=== PATIENT | male | born 1980 | race Caucasian/White ===

== ENCOUNTER 2019-01-25 09:30 | Outpatient (CLI) | payer BC ==
[~2019-01-25] VITALS: Ht 78 cm; Wt 227.0 kg
[~2019-01-25 09:30] MED LIST: ALLO300T2 PO; ATOR40TA70 PO; BUPR300T43 PO; DULO30CA3 PO; HYDR12.5 PO; LISI-552 PO
== END 2019-01-25 10:28 | disposition home or self-care (01) ==
LOC: PREOP 09:30
PROVIDERS: ATTEND Surgery
DX: Z01.818 Encounter for other preprocedural examination (principal)

== ENCOUNTER 2019-02-03 06:07 | Day surgery (SDC) | payer BC ==
[2019-02-03] VITALS (7 sets, daily range): BP systolic 122–160; BP diastolic 78–97
[~2019-02-03] VITALS: Ht 177.8 cm; Wt 225.1 kg
[2019-02-03] MEDS ORDERED: LACTATED RINGERS 1,000 ML IV PRN (06:46)
[2019-02-03] MEDS ORDERED: ceFAZolin 2 GM IV Premixed 50 ML IV ONE (07:00)
[2019-02-03] MEDS ORDERED: BUP/EPI 0.5% 1:200,000 (MARCAINE) 10ML VIAL IJ ONE (07:05)
[2019-02-03] MEDS ORDERED: ceFAZolin 2 GM/NS 50 ML (COMPOUNDED) IV ONE (07:30)
[2019-02-03] MEDS ORDERED: KETAMINE/NaCl 50 MG/5 ML SYRINGE (ED ONLY) ONE (07:41)
[2019-02-03] MEDS ORDERED: MIDAZOLAM 2 MG/2 ML (VERSED) VIAL ONE ×2 (07:41→07:55)
--- NOTE | 2019-02-03 07:52 | Progress Note-Pre Operative ---
Pre-Operative Progress Note H&P Reviewed The H&P was reviewed, patient examined and no changes noted. Date Seen by Provider: Feb 03, 2019 Time Seen by Provider: 07:30 Date H&P Reviewed: Feb 03, 2019 Time H&P Reviewed: 07:30 Pre-Operative Diagnosis: left supraclavicular mass NU LOPEZ DO Feb 03, 2019 07:51 POS
--- NOTE | 2019-02-03 08:26 | Progress Note-Post Operative ---
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
--- NOTE | 2019-02-03 08:29 | Discharge Inst-Simple/Standard ---
Discharge Inst-Standard Patient Instructions/Follow Up Plan of Care/Instructions/FU: 2 weeks Clarisse (suture removal) Activity as Tolerated: No Discharge Diet: Regular Diet Other Inst to Patient Follow up Appt: Make appointment for 2 week. Instructions: No lifting greater than 10 pounds. No strenuous activity. May shower in 24 hours, no tub bath or soaking. Use incentive spirometer at home as directed. No Smoking Skin/Wound Care: May remove bandages. You need to leave the white strips over incision on they will fall off on their own. Symptoms to Report: Appetite Changes, Extremity Discoloration, Numbness/Tingling, Swelling Increased, Bleeding Excessive, Eyesight Changes, Pain Increased, Urine Color Change, Constipation(Persistent), Fever over 101 degree F, Pain/Pressure in chest, Urinating Difficulty, Cough Up/Vomit Blood, Heart Beat Irreg/Pounding, Pain/Pressure in jaw, Vaginal Bleeding Increase, Cramps in feet or legs, Lightheadedness, Pain/Pressure in shoulder, Diarrhea(Persistent), Memory Changes Suddenly, Questions/Concerns, Weight gain consecutive days, Dizziness/Fainting, Nausea/Vomiting, Shortness of Breath, Weight gain over 2 pounds If questions or concerns contact your physician Or seek help at emergency department. NU LOPEZ DO Feb 03, 2019 08:29 POS
[2019-02-03] MEDS ORDERED: proPOfol 200 MG/20 ML (DIPRIVAN) VIAL IV ONE (08:39)
--- NOTE | 2019-02-03 13:41 | Anesthesia-General Post-Op ---
MAC Patient Condition Mental Status/LOC: Same as Preop Cardiovascular: Satisfactory Nausea/Vomiting: Absent Respiratory: Satisfactory Pain: Controlled Complications: Absent Post Op Complications Complications None Follow Up Care/Instructions Patient Instructions None needed. Anesthesiology Discharge Order Discharge Order Patient is doing well, no complaints, stable vital signs, no apparent adverse anesthesia problems. No complications reported per nursing. KIKO PHAN CRNA Feb 03, 2019 13:41 POS
--- NOTE | 2019-02-04 03:23 | OPERATIVE REPORT ---
DATE OF SERVICE: 02/03/2019 PREOPERATIVE DIAGNOSIS: Left supraclavicular mass. POSTOPERATIVE DIAGNOSIS: Left supraclavicular mass. PROCEDURE: Excision of left supraclavicular mass, 7.3 x 3 cm. SURGEON: Nu Robb DO. ANESTHESIA: MAC with local. ESTIMATED BLOOD LOSS: Minimal. COMPLICATIONS: None. INDICATIONS: The patient is a 38-year-old male with a mass on the left clavicular area. He understands risks and benefits of procedure and wished to proceed with procedure. He agrees to have this removed. Consent was signed in the chart. DESCRIPTION OF PROCEDURE: The patient was taken to the operating suite, was prepped and draped in sterile fashion. Surgical pause was performed. Local anesthetic was infiltrated around the mass. An elliptical incision measuring 7.3 x 3 cm was made around the mass and cautery used to dissect around through the skin and subcutaneous tissue. Once removed, the specimen was labeled and the skin was undermined slightly with cautery. The skin was then closed using 2-0 Prolene in vertical mattress in simple interrupted fashion. The area was then washed and dried and sterile bandage was applied. The patient tolerated procedure well without any complications. He was taken to recovery room in stable condition. Job ID: [id number] DocumentID: [id number] Dictated Date: 02/03/2019 19:46:57 Counter Maker Date: 02/04/2019 03:22:23 Dictated By: NU ROBB DO
--- OUTSIDE RECORDS SUMMARY | 2019-03-01 00:24 | XMS REPORT ---
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 Active 45176186 Problem Abnormal results of thyroid function studies R94.6 Active 299702809 Problem Mixed hyperlipidemia E78.2 Active 395634799 Problem Acute midline low back pain with left-sided sciatica M54.42 Active 076029439 Problem Lumbago with sciatica, right side M54.41 Active 473999391 Problem Gout M10.9 Active 18681106 Problem Other chronic pain G89.29 Active 8 0854215 Problem Benign hypertension I10 Active 46840332 Problem Acute left-sided low back pain with left-sided sciatica M54.42 Active 418017375 Problem Severe episode of recurrent major depressive disorder, without psychotic features F33.2 Active 72235651 Problem BELLA (generalized anxiety disorder) F41.1 Active 00248837 Problem Hypersomnolence G47.10 Active 7769 2006 ALLERGIES No Information ENCOUNTERS Encounter Location Date Diagnosis [facility] [address] [facility] [id number] [address] [place] [phone] Dec, [facility] [address] [facility] [id number] [address] [place] [phone] Dec, [facility] [address] [facility] [id number] [address] [place] [id number] Nov, [facility] [address] [facility] [id number] [address] [place] [phone] Oct, Severe episode of recurrent major depressive disorder, without psychotic features F33.2 and BELLA (generalized anxiety disorder) F41.1 [place] [address] [place] [id number] [address] [place] [id number] Oct, BELLA (generalized anxiety dis order) F41.1 ; Severe episode of recurrent major depressive disorder, without psychotic features F33.2 and Morbid obesity E66.01 [place] [address] [place] [id number] [address] [place] [phone] Sep, BELLA (generalized anxiety dis order) F41.1 and Severe episode of recurrent major depressive disorder, without psychotic features F33.2 [place] [address] [place] [id number] [address] [place] [phone] Jul, BELLA (generalized anxiety dis order) F41.1 ; Severe episode of recurrent major depressive disorder, without psychotic features F33.2 and Morbid obesity E66.01 [place] [address] [place] [id number] [address] [place] [phone] Jul, BELLA (generalized anxiety dis order) F41.1 and Severe episode of recurrent major depressive disorder, without psychotic features F33.2 [place] [address] [place] [id number] [address] [place] [phone] June, BELLA (generalized anxiety dis order) F41.1 ; Severe episode of recurrent major depressive disorder, without psychotic features F33.2 and Morbid obesity E66.01 [place] [address] [place] [id number] [address] [place] [phone] June, Benign hypertension I10 [place] [address] [facility] [id number] [address] [place] [phone] May, [place] [address] [place] [id number] [address] [place] [phone] May, BELLA (generalized anxiety dis order) F41.1 ; Severe episode of recurrent major depressive disorder, without psychotic features F33.2 and Morbid obesity E66.01 [place] [address] [place] [id number] [address] [place] [phone] Apr, [facility] [address] [facility] [id number] [address] [place] [phone] Mar, [facility] [address] [facility] [id number] [address] [place] [phone] Mar, Severe episode of recurrent major depressive disorder, without psychotic features F33.2 ; BELLA (generalized anxiety disorder) F41.1 and BMI 50.0-59.9, adult Z68.43 [facility] [address] [place] [id number] [address] [place] [phone] Mar, [facility] [address] [place] [id number] [place] [phone] Mar, Benign hypertension I10 [facility] [address] [place] [id number] [address] [place] [phone] Mar, [facility] [address] [place] [id number] [address] [place] [phone] Mar, [facility] [address] [place] [id number] [address] [place] [phone] Jan, [facility] [address] [place] [id number] [address] [place] [phone] Jan, [facility] [address] [place] [id number] [address] [place] [phone] Jan, Hypersomnolence G47.10 [facility] [address] [place] [id number] [address] [place] [phone] Jan, Lumbago with sciatica, right side M54.41 ; Other chronic pain G89.29 and BMI 50.0-59.9, adult Z68.43 [facility] [address] [place] [id number] [address] [place] [phone] Jan, [facility] [address] [place] [id number] [address] [place] [phone] Dec, Severe episode of recurrent major depressive disorder, without psychotic features F33.2 ; BELLA (generalized anxiety disorder) F41.1 ; Hypersomnolence G47.10 and BMI 50.0-59.9, adult Z68.43 [place] [address] [address] Oct, [place] [address] [address] Sep, Severe episode of recurrent major depressive disorder, without psychotic features F33.2 ; BELLA (generalized anxiety disorder) F41.1 and BMI 50.0-59.9, adult Z68.43 [place] [address] [address] Sep, [place] [address] [address] Sep, Severe episode of recurrent major depressive disorder, without psychotic features F33.2 [place] [address] [address] Sep, Skin disorder L98.9 and BMI 50.0-59.9, adult Z68.43 [place] [address] [address] Sep, Benign hypertension I10 ; Ab scess L02.91 ; Gout M10.9 ; Mixed hyperlipidemia E78.2 and BMI 50.0-59.9, adult Z68.43 [place] [address] [address] Aug, Severe episode of recurrent major depressive disorder, without psychotic features F33.2 ; BELLA (generalized anxiety disorder) F41.1 and BMI 50.0-59.9, adult Z68.43 [place] [address] [address] Jul, BMI 50.0-59.9, adult Z68.43 ; BELLA (generalized anxiety disorder) F41.1 and Severe episode of recurrent major depressive disorder, without psychotic features F33.2 [place] [address] [address] June, [place] [address] [address] June, Blood in the stool K92.1 and BMI 50.0-59.9, adult Z68.43 [place] [address] [address] May, [place] [address] [address] Apr, Chronic depression F32.9 ; B enign hypertension I10 ; Mixed hyperlipidemia E78.2 ; Gout M10.9 and BMI 50.0-59.9, adult Z68.43 [place] [address] [address] Mar, Mixed hyperlipidemia E78.2 ; Benign hypertension I10 and Gout M10.9 [place] [address] [address] Mar, Mixed hyperlipidemia E78.2 ; Gout M10.9 and Benign hypertension I10 [facility] [address] [address] Jan, Acute left-sided low back pa in with left-sided sciatica M54.42 and BMI 50.0-59.9, adult Z68.43 [facility] [address] [address] Oct, Acute midline low back pain with left-sided sciatica M54.42 [place] [address] [id number] 20 Oct, 2016 [place] [address] [phone] 13 Oct, 2016 Chronic depression F32.9 ; B enign hypertension I10 ; Mixed hyperlipidemia E78.2 and Gout M10.9 [place] [address] [place] [id number] [address] [place] [phone] Sep, Chronic depression F32.9 ; B enign hypertension I10 ; Mixed hyperlipidemia E78.2 and Gout M10.9 [facility] [address] [place] [id number] [place] [address] June, Chronic depression F32.9 ; G out M10.9 ; Benign hypertension I10 ; Obsessive-compulsive disorders F42.9 and Mixed hyperlipidemia E78.2 [place] [address] [address] May, Gout M10.9 ; Mixed hyperlipi demia E78.2 and Benign hypertension I10 [place] [address] [address] Apr, Chronic depression F32.9 ; G out M10.9 ; Benign hypertension I10 ; Obsessive-compulsive disorders F42.9 ; Abnormal results of thyroid function studies R94.6 and Mixed hyperlipidemia E78.2 [place] [address] [address] Apr, [place] [address] [address] Apr, [place] [address] [address] Jan, [place] [address] [address] Dec, [place] [address] [place] [id number] [place] [phone] Oct, [place] [address] [address] Sep, Anxiety state, unspecified 3 00.00 and Major depressive disorder, single episode, mild 296.21 [place] [address] [address] Sep, [facility] [address] [id number] [address] [place] [phone] Aug, [facility] [address] [id number] [address] [place] [phone] Jul, [facility] [address] [id number] [address] [place] [phone] June, Anxiety state, unspecified 3 00.00 and Depressive disorder, not elsewhere classified 311 [facility] [address] [id number] [address] [place] [phone] June, [facility] [address] [id number] [address] [place] [phone] June, Abnormal thyroid blood test 794.5 [facility] [address] [id number] [address] [place] [phone] May, [facility] [address] [id number] [address] [place] [phone] May, [facility] [address] [id number] [address] [place] [phone] Apr, [facility] [address] [id number] [address] [place] [address], [place] [address] Apr, [facility] [address] [id number] [address] [place] [phone] Apr, [facility] [address] [id number] [address] [place] [phone] Apr, [facility] [address] [id number] [address] [place] [phone] Apr, [facility] [address] [id number] [address] [place] [phone] Apr, [facility] [address] [id number] [address] [place] [phone] Apr, [facility] [address] [id number] [address] [place] [id number] Apr, [facility] [address] [id number] [address] [place] [address], [place] [address] Apr, [facility] [address] [id number] [address] [place] [address], [place] [address] Apr, [facility] [address] [id number] [address] [place] [address], [place] [address] Apr, [facility] [address] [id number] [address] [place] [address], [place] [address] Apr, [facility] [address] [id number] [address] [place] [address], [place] [address] Apr, [facility] [address] [id number] [address] [place] [address], [place] [address] Apr, [facility] [address] [id number] [address] [place] [address], [place] [address] Apr, [facility] [address] [id number] [address] [place] [address], [place] [address] Apr, [facility] [address] [id number] [address] [place] [address], [place] [address] Mar, [facility] [address] [id number] [address] [place] [address], [place] [address] Mar, [facility] [address] [id number] [address] [place] [address], [place] [address] Mar, [facility] [address] [id number] [address] [place] [address], [place] [address] Mar, [facility] [address] [id number] [address] [place] [address], [place] [address] Mar, [facility] [address] [id number] [address] [place] [address], [place] [address] Mar, [facility] [address] [id number] [address] [place] [address], [place] [address] Mar, [facility] [address] [id number] [address] [place] [phone] Mar, [facility] [address] [facility] [id number] [address] [place] [phone] Nov, [facility] [address] [facility] [id number] [address] [place] [phone] Nov, [facility] [address] [facility] [id number] [address] [place] [phone] Nov, [facility] [address] [facility] [id number] [address] [place] [phone] Nov, [facility] [address] [facility] [id number] [address] [place] [phone] Nov, IMMUNIZATIONS No Known Immunizations SOCIAL HISTORY Never Assessed REASON FOR VISIT PLAN OF CARE VITAL SIGNS MEDICATIONS Unknown Medications RESULTS No Results PROCEDURES Procedure Date Ordered Result Body Site PSYTX PT&/FAMILY 30 MINUTES Apr 05, 2014 INSTRUCTIONS MEDICATIONS ADMINISTERED No Known Medications MEDICAL (GENERAL) HISTORY Type Description Date Medical History hypertension 2007 Medical History hyperlipidemia 2006 Medical History obesity Medical History chronic pain 2007 Medical History [id number] Medical History depression Medical History Bipolar disorder, unspecified Medical History Bipolar disorder, unspecified Medical History sleep apnea Surgical History Birthmark removed from right side of nos e Hospitalization History depression 03/2014 Hospitalization History depression 04/2014
--- OUTSIDE RECORDS SUMMARY | 2019-03-01 00:24 | XMS REPORT ---
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 Active 07025442 Problem Abnormal results of thyroid function studies R94.6 Active 034023017 Problem Mixed hyperlipidemia E78.2 Active 265728549 Problem Acute midline low back pain with left-sided sciatica M54.42 Active 345186748 Problem Lumbago with sciatica, right side M54.41 Active 222974425 Problem Gout M10.9 Active 36237396 Problem Other chronic pain G89.29 Active 8 9204462 Problem Benign hypertension I10 Active 06516357 Problem Acute left-sided low back pain with left-sided sciatica M54.42 Active 665802284 Problem Severe episode of recurrent major depressive disorder, without psychotic features F33.2 Active 33123656 Problem BELLA (generalized anxiety disorder) F41.1 Active 13406172 Problem Hypersomnolence G47.10 Active 7769 2006 ALLERGIES No Information ENCOUNTERS Encounter Location Date Diagnosis [facility] [address] [facility] [id number] [address] [place] [id number] Dec, [facility] [address] [facility] [id number] [address] [place] [id number] Dec, [facility] [address] [facility] [id number] [address] [place] [id number] Nov, [facility] [address] [facility] [id number] [address] [place] [address] Oct, Severe episode of recurrent major depressive disorder, without psychotic features F33.2 and BELLA (generalized anxiety disorder) F41.1 [place] [address] [place] [id number] [address] [place] [id number] Oct, BELLA (generalized anxiety dis order) F41.1 ; Severe episode of recurrent major depressive disorder, without psychotic features F33.2 and Morbid obesity E66.01 [place] [address] [place] [id number] [place] [address] Sep, BELLA (generalized anxiety dis order) F41.1 and Severe episode of recurrent major depressive disorder, without psychotic features F33.2 [place] [address] [place] [id number] [place] [id number] Jul, BELLA (generalized anxiety dis order) F41.1 ; Severe episode of recurrent major depressive disorder, without psychotic features F33.2 and Morbid obesity E66.01 [place] [address] [place] [id number] [place] [phone] Jul, BELLA (generalized anxiety dis order) F41.1 and Severe episode of recurrent major depressive disorder, without psychotic features F33.2 [place] [address] [place] [id number] [place] [phone] June, BELLA (generalized anxiety dis order) F41.1 ; Severe episode of recurrent major depressive disorder, without psychotic features F33.2 and Morbid obesity E66.01 [place] [address] [place] [id number] [address] [place] [address] June, Benign hypertension I10 [place] [address] [facility] [id number] [address] [place] [phone] May, [place] [address] [place] [id number] [address] [place] [phone] May, BELLA (generalized anxiety dis order) F41.1 ; Severe episode of recurrent major depressive disorder, without psychotic features F33.2 and Morbid obesity E66.01 [place] [address] [place] [id number] [address] [place] [address] Apr, [facility] [address] [facility] [id number] [address] [place] [id number] Mar, [facility] [address] [facility] [id number] [address] [place] [id number] Mar, Severe episode of recurrent major depressive disorder, without psychotic features F33.2 ; BELLA (generalized anxiety disorder) F41.1 and BMI 50.0-59.9, adult Z68.43 [facility] [address] [id number] [address] [place] [phone] Mar, [facility] [address] [place] [id number] [address] [place] [id number] Mar, Benign hypertension I10 [facility] [address] [place] [id number] [address] [place] [address] Mar, [facility] [address] [facility] [id number] [address] [place] [id number] Mar, [facility] [address] [facility] [id number] [address] [place] [phone] Jan, [facility] [address] [place] [id number] [address] [place] [id number] Jan, [facility] [address] [place] [id number] [address] [place] [address] Jan, Hypersomnolence G47.10 [facility] [address] [place] [id number] [address] [place] [phone] Jan, Lumbago with sciatica, right side M54.41 ; Other chronic pain G89.29 and BMI 50.0-59.9, adult Z68.43 [facility] [address] [facility] [id number] [address] [place] [phone] Jan, [facility] [address] [place] [id number] [address] [place] [address] Dec, Severe episode of recurrent major depressive disorder, without psychotic features F33.2 ; BELLA (generalized anxiety disorder) F41.1 ; Hypersomnolence G47.10 and BMI 50.0-59.9, adult Z68.43 [place] [address] [address] Oct, [place] [address] [address] Sep, Severe episode of recurrent major depressive disorder, without psychotic features F33.2 ; BELLA (generalized anxiety disorder) F41.1 and BMI 50.0-59.9, adult Z68.43 [place] [address] [address] Sep, [place] [address] [address] Sep, Severe episode of recurrent major depressive disorder, without psychotic features F33.2 [place] [address] [address] Sep, Skin disorder L98.9 and BMI 50.0-59.9, adult Z68.43 [place] [address] [address] Sep, Benign hypertension I10 ; Ab scess L02.91 ; Gout M10.9 ; Mixed hyperlipidemia E78.2 and BMI 50.0-59.9, adult Z68.43 [place] [address] [address] Aug, Severe episode of recurrent major depressive disorder, without psychotic features F33.2 ; BELLA (generalized anxiety disorder) F41.1 and BMI 50.0-59.9, adult Z68.43 [place] [address] [address] Jul, BMI 50.0-59.9, adult Z68.43 ; BELLA (generalized anxiety disorder) F41.1 and Severe episode of recurrent major depressive disorder, without psychotic features F33.2 [place] [address] [address] June, [place] [address] [address] June, Blood in the stool K92.1 and BMI 50.0-59.9, adult Z68.43 [place] [address] [address] May, [place] [address] [address] Apr, Chronic depression F32.9 ; B enign hypertension I10 ; Mixed hyperlipidemia E78.2 ; Gout M10.9 and BMI 50.0-59.9, adult Z68.43 [place] [address] [address] Mar, Mixed hyperlipidemia E78.2 ; Benign hypertension I10 and Gout M10.9 [place] [address] [address] Mar, Mixed hyperlipidemia E78.2 ; Gout M10.9 and Benign hypertension I10 [facility] [address] [address] Jan, Acute left-sided low back pa in with left-sided sciatica M54.42 and BMI 50.0-59.9, adult Z68.43 [facility] [address] [address] Oct, Acute midline low back pain with left-sided sciatica M54.42 [place] [address] [address] 20 Oct, 2016 [place] [address] [address] 13 Oct, 2016 Chronic depression F32.9 ; B enign hypertension I10 ; Mixed hyperlipidemia E78.2 and Gout M10.9 [place] [address] [place] [id number] [address] [place] [address] Sep, Chronic depression F32.9 ; B enign hypertension I10 ; Mixed hyperlipidemia E78.2 and Gout M10.9 [place] [id number] [address] June, Chronic depression F32.9 ; G out M10.9 ; Benign hypertension I10 ; Obsessive-compulsive disorders F42.9 and Mixed hyperlipidemia E78.2 [place] [address] [address] May, Gout M10.9 ; Mixed hyperlipi demia E78.2 and Benign hypertension I10 [place] [address] [address] Apr, Chronic depression F32.9 ; G out M10.9 ; Benign hypertension I10 ; Obsessive-compulsive disorders F42.9 ; Abnormal results of thyroid function studies R94.6 and Mixed hyperlipidemia E78.2 [place] [address] [address] Apr, [place] [address] [address] Apr, [place] [address] [address] Jan, [place] [address] [address] Dec, [place] [address] [address] Oct, [place] [address] [address] Sep, Anxiety state, unspecified 3 00.00 and Major depressive disorder, single episode, mild 296.21 [place] [address] [address] Sep, [facility] [address] [id number] [address] [place] [address] Aug, [facility] [address] [id number] [address] [place] [address] Jul, [facility] [address] [id number] [address] [place] [address] June, Anxiety state, unspecified 3 00.00 and Depressive disorder, not elsewhere classified 311 [facility] [address] [id number] [address] [place] [address] June, [facility] [address] [id number] [address] [place] [address] June, Abnormal thyroid blood test 794.5 [facility] [address] [id number] [address] [place] [address] May, [facility] [address] [id number] [address] [place] [address] May, [facility] [address] [id number] [address] [place] [address] Apr, [facility] [address] [id number] [address] [place] [address] Apr, [facility] [address] [id number] [address] [place] [address] Apr, [facility] [address] [id number] [address] [place] [address] Apr, [facility] [address] [id number] [address] [place] [address] Apr, [facility] [address] [id number] [address] [place] [address] Apr, [facility] [address] [id number] [address] [place] [address] Apr, [facility] [address] [id number] [address] [place] [address] Apr, [facility] [address] [id number] [address] [place] [address], [place] [address] Apr, [facility] [address] [id number] [address] [place] [address], [place] [address] Apr, [facility] [address] [id number] [address] [place] [address], [place] [address] Apr, [facility] [address] [id number] [address] [place] [address], [place] [address] Apr, [facility] [address] [id number] [address] [place] [address], [place] [address] Apr, [facility] [address] [id number] [address] [place] [address], [place] [address] Apr, [facility] [address] [id number] [address] [place] [address], [place] [address] Apr, [facility] [address] [id number] [address] [place] [address], [place] [address] Apr, [facility] [address] [id number] [address] [place] [address], [place] [address] Mar, [facility] [address] [id number] [address] [place] [address], [place] [address] Mar, [facility] [address] [id number] [address] [place] [address], [place] [address] Mar, [facility] [address] [id number] [address] [place] [address], [place] [address] Mar, [facility] [address] [id number] [address] [place] [address], [place] [address] Mar, [facility] [address] [id number] [address] [place] [address], [place] [address] Mar, [facility] [address] [id number] [address] [place] [address], [place] [address] Mar, [facility] [address] [id number] [address] [place] [address] Mar, [facility] [address] [facility] [id number] [address] [place] [address] Nov, [facility] [address] [facility] [id number] [address] [place] [id number] Nov, [facility] [address] [facility] [id number] [address] [place] [address] Nov, [facility] [address] [facility] [id number] [address] [place] [id number] Nov, [facility] [address] [facility] [id number] [address] [place] [id number] Nov, IMMUNIZATIONS No Known Immunizations SOCIAL HISTORY Never Assessed REASON FOR VISIT PLAN OF CARE VITAL SIGNS Height 78 in 2014-03-07 Weight 309.6 lbs 2014-03-07 Temperature 97.6 degrees Fahrenheit 2014-03-07 Heart Rate 78 bpm 2014-03-07 Respiratory Rate 20 2014-03-07 Blood pressure systolic 144 mmHg 2014-03-07 Blood pressure diastolic 68 mmHg 2014-03-07 MEDICATIONS Unknown Medications RESULTS No Results PROCEDURES No Known procedures INSTRUCTIONS MEDICATIONS ADMINISTERED No Known Medications MEDICAL (GENERAL) HISTORY Type Description Date Medical History hypertension 2006 Medical History hyperlipidemia 2006 Medical History obesity Medical History chronic pain 2007 Medical History [id number] Medical History depression Medical History Bipolar disorder, unspecified Medical History Bipolar disorder, unspecified Medical History sleep apnea Surgical History Birthmark removed from right side of nos e Hospitalization History depression 03/2014 Hospitalization History depression 04/2014
--- OUTSIDE RECORDS SUMMARY | 2019-03-01 00:24 | XMS REPORT ---
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 Active 57178918 Problem Abnormal results of thyroid function studies R94.6 Active 222623206 Problem Mixed hyperlipidemia E78.2 Active 616602167 Problem Acute midline low back pain with left-sided sciatica M54.42 Active 455136000 Problem Lumbago with sciatica, right side M54.41 Active 565701508 Problem Gout M10.9 Active 10762303 Problem Other chronic pain G89.29 Active 8 3324295 Problem Benign hypertension I10 Active 42710787 Problem Acute left-sided low back pain with left-sided sciatica M54.42 Active 527444339 Problem Severe episode of recurrent major depressive disorder, without psychotic features F33.2 Active 53518636 Problem BELLA (generalized anxiety disorder) F41.1 Active 58343385 Problem Hypersomnolence G47.10 Active 7769 2006 ALLERGIES No Information ENCOUNTERS Encounter Location Date Diagnosis [facility] [address] [facility] [id number] [address] [place] [address] Sep, [facility] [address] [facility] [id number] [address] [place] [address] Aug, [facility] [address] [facility] [id number] [address] [place] [address] Jul, BELLA (generalized anxiety dis order) F41.1 ; Severe episode of recurrent major depressive disorder, without psychotic features F33.2 and Morbid obesity E66.01 [facility] [address] [id number] [address] [place] [address] Jul, BELLA (generalized anxiety dis order) F41.1 and Severe episode of recurrent major depressive disorder, without psychotic features F33.2 [facility] [address] [id number] [address] [place] [phone] June, BELLA (generalized anxiety dis order) F41.1 ; Severe episode of recurrent major depressive disorder, without psychotic features F33.2 and Morbid obesity E66.01 [facility] [address] [id number] [address] [place] [address] June, Benign hypertension I10 [facility] [address] [id number] [address] [place] [phone] May, [facility] [address] [id number] [address] [place] [address] May, BELLA (generalized anxiety dis order) F41.1 ; Severe episode of recurrent major depressive disorder, without psychotic features F33.2 and Morbid obesity E66.01 [facility] [address] [id number] [address] [place] [address] Apr, [facility] [address] [id number] [address] [place] [phone] Mar, [facility] [address] [id number] [address] [place] [address] Mar, Severe episode of recurrent major depressive disorder, without psychotic features F33.2 ; EBLLA (generalized anxiety disorder) F41.1 and BMI 50.0-59.9, adult Z68.43 [facility] [address] [id number] [address] [place] [address] Mar, [facility] [address] [id number] [address] [place] [address] Mar, Benign hypertension I10 [facility] [address] [facility] [id number] [address] [place] [address] Mar, [facility] [address] [id number] [address] [place] [phone] Mar, [facility] [address] [id number] [address] [place] [address] Jan, [facility] [address] [id number] [address] [place] [address] Jan, [facility] [address] [id number] [address] [place] [address] Jan, Hypersomnolence G47.10 [facility] [address] [id number] [address] [place] [address] Jan, Lumbago with sciatica, right side M54.41 ; Other chronic pain G89.29 and BMI 50.0-59.9, adult Z68.43 [facility] [address] [facility] [id number] [address] [place] [phone] Jan, [facility] [address] [id number] [address] [place] [address] Dec, Severe episode of recurrent major depressive disorder, without psychotic features F33.2 ; BELLA (generalized anxiety disorder) F41.1 ; Hypersomnolence G47.10 and BMI 50.0-59.9, adult Z68.43 [facility] [address] [facility] [id number] [address] [place] [address] Oct, [facility] [address] [facility] [id number] [address] [place] [address] Sep, Severe episode of recurrent major depressive disorder, without psychotic features F33.2 ; BELLA (generalized anxiety disorder) F41.1 and BMI 50.0-59.9, adult Z68.43 [facility] [address] [id number] [address] [place] [address] Sep, [facility] [address] [facility] [id number] [address] [place] [address] Sep, Severe episode of recurrent major depressive disorder, without psychotic features F33.2 [facility] [place] [address] [place] [id number] [address] [place] [address] Sep, Skin disorder L98.9 and BMI 50.0-59.9, adult Z68.43 [facility] [address] [place] [id number] [place] [address] Sep, Benign hypertension I10 ; Ab scess L02.91 ; Gout M10.9 ; Mixed hyperlipidemia E78.2 and BMI 50.0-59.9, adult Z68.43 [place] [place] [address] [place] [id number] [place] [address] Aug, Severe episode of recurrent major depressive disorder, without psychotic features F33.2 ; BELLA (generalized anxiety disorder) F41.1 and BMI 50.0-59.9, adult Z68.43 [place] [address] [address] Jul, BMI 50.0-59.9, adult Z68.43 ; BELLA (generalized anxiety disorder) F41.1 and Severe episode of recurrent major depressive disorder, without psychotic features F33.2 [place] [address] [place] [id number] [place] [address] June, [facility] [place] [address] [place] [id number] [place] [address] June, Blood in the stool K92.1 and BMI 50.0-59.9, adult Z68.43 [place] [address] [place] [id number] [address] [place] [address] May, [facility] [address] [place] [id number] [place] [address] Apr, Chronic depression F32.9 ; B enign hypertension I10 ; Mixed hyperlipidemia E78.2 ; Gout M10.9 and BMI 50.0-59.9, adult Z68.43 [place] [address] [place] [id number] [place] [address] Mar, Mixed hyperlipidemia E78.2 ; Benign hypertension I10 and Gout M10.9 [place] [id number] [id number] Mar, Mixed hyperlipidemia E78.2 ; Gout M10.9 and Benign hypertension I10 [facility] [address] [id number] Jan, Acute left-sided low back pa in with left-sided sciatica M54.42 and BMI 50.0-59.9, adult Z68.43 [facility] [address] [id number] 22 Oct, 2016 Acute midline low back pain with left-sided sciatica M54.42 [place] [address] [address] Oct, [place] [address] [address] Oct, Chronic depression F32.9 ; B enign hypertension I10 ; Mixed hyperlipidemia E78.2 and Gout M10.9 [place] [address] [id number] Sep, Chronic depression F32.9 ; B enign hypertension I10 ; Mixed hyperlipidemia E78.2 and Gout M10.9 [place] [address] [address] June, Chronic depression F32.9 ; G out M10.9 ; Benign hypertension I10 ; Obsessive-compulsive disorders F42.9 and Mixed hyperlipidemia E78.2 [place] [address] [address] May, Gout M10.9 ; Mixed hyperlipi demia E78.2 and Benign hypertension I10 [place] [address] [id number] Apr, Chronic depression F32.9 ; G out M10.9 ; Benign hypertension I10 ; Obsessive-compulsive disorders F42.9 ; Abnormal results of thyroid function studies R94.6 and Mixed hyperlipidemia E78.2 [facility] [address] [facility] [id number] [address] [place] [address] Apr, [facility] [address] [facility] [id number] [address] [place] [address] Apr, [facility] [address] [facility] [id number] [address] [place] [address] Jan, [facility] [address] [facility] [id number] [address] [place] [address] Dec, [facility] [address] [facility] [id number] [address] [place] [phone] Oct, [facility] [address] [facility] [id number] [address] [place] [address] Sep, Anxiety state, unspecified 3 00.00 and Major depressive disorder, single episode, mild 296.21 [facility] [address] [facility] [id number] [address] [place] [address] Sep, [facility] [address] [facility] [id number] [address] [place] [address] Aug, [facility] [address] [facility] [id number] [address] [place] [address] Jul, [facility] [address] [facility] [id number] [address] [place] [address] June, Anxiety state, unspecified 3 00.00 and Depressive disorder, not elsewhere classified 311 [facility] [address] [facility] [id number] [address] [place] [address] June, [facility] [address] [facility] [id number] [address] [place] [address] June, Abnormal thyroid blood test 794.5 [facility] [address] [facility] [id number] [address] [place] [address] May, [facility] [address] [id number] [address] [place] [address], [place] [address] 13 May, 2014 [facility] [address] [id number] [address] [place] [address], [place] [address] 24 Apr, 2014 [facility] [address] [id number] [address] [place] [address], [place] [address] 24 Apr, 2014 [facility] [address] [id number] [address] [place] [address], [place] [address] Apr, [facility] [address] [id number] [address] [place] [address], [place] [address] Apr, [facility] [address] [id number] [address] [place] [address], [place] [address] Apr, [facility] [address] [id number] [address] [place] [address], [place] [address] Apr, [facility] [address] [id number] [address] [place] [address], [place] [address] Apr, [facility] [address] [id number] [address] [place] [address], [place] [address] Apr, [facility] [address] [id number] [address] [place] [address], [place] [address] Apr, [facility] [address] [id number] [address] [place] [address], [place] [address] Apr, [facility] [address] [id number] [address] [place] [phone] Apr, [facility] [address] [id number] [address] [place] [address], [place] [address] Apr, [facility] [address] [id number] [address] [place] [address], [place] [address] Apr, [facility] [address] [id number] [address] [place] [address], [place] [address] Apr, [facility] [address] [id number] [address] [place] [address] Apr, [facility] [address] [id number] [address] [place] [id number] Apr, [facility] [address] [id number] [address] [place] [address] Mar, [facility] [address] [id number] [address] [place] [address] Mar, [facility] [address] [id number] [address] [place] [phone] Mar, [facility] [address] [id number] [address] [place] [phone] Mar, [facility] [address] [id number] [address] [place] [phone] Mar, [facility] [address] [id number] [address] [place] [phone] Mar, [facility] [address] [id number] [address] [place] [id number] Mar, [facility] [address] [id number] [address] [place] [address] Mar, [facility] [address] [id number] [address] [place] [address] Nov, [facility] [address] [id number] [address] [place] [address] Nov, [facility] [address] [id number] [address] [place] [address] Nov, [facility] [address] [id number] [address] [place] [phone] Nov, [facility] [address] [id number] [address] [place] [phone] Nov, IMMUNIZATIONS No Known Immunizations SOCIAL HISTORY Never Assessed REASON FOR VISIT PLAN OF CARE VITAL SIGNS MEDICATIONS Unknown Medications RESULTS No Results PROCEDURES No Known procedures INSTRUCTIONS MEDICATIONS ADMINISTERED No Known Medications MEDICAL (GENERAL) HISTORY Type Description Date Medical History hypertension 2007 Medical History hyperlipidemia 2006 Medical History obesity Medical History chronic pain 2007 Medical History [id number] Medical History depression Medical History Bipolar disorder, unspecified Medical History Bipolar disorder, unspecified Medical History sleep apnea Surgical History Birthmark removed from right side of nos e Hospitalization History depression 03/2014 Hospitalization History depression 04/2014
--- OUTSIDE RECORDS SUMMARY | 2019-03-01 00:24 | XMS REPORT ---
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 Active 09145493 Problem Abnormal results of thyroid function studies R94.6 Active 886955290 Problem Mixed hyperlipidemia E78.2 Active 257998579 Problem Acute midline low back pain with left-sided sciatica M54.42 Active 025698347 Problem Lumbago with sciatica, right side M54.41 Active 939576973 Problem Gout M10.9 Active 13750912 Problem Other chronic pain G89.29 Active 8 0434845 Problem Benign hypertension I10 Active 14915341 Problem Acute left-sided low back pain with left-sided sciatica M54.42 Active 513618237 Problem Severe episode of recurrent major depressive disorder, without psychotic features F33.2 Active 81366320 Problem BELLA (generalized anxiety disorder) F41.1 Active 03506622 Problem Hypersomnolence G47.10 Active 7769 2006 ALLERGIES No Information ENCOUNTERS Encounter Location Date Diagnosis [facility] [address] [facility] [id number] [address] [place] [phone] Oct, [facility] [address] [facility] [id number] [address] [place] [address] Oct, [facility] [address] [facility] [id number] [address] [place] [phone] Sep, BELLA (generalized anxiety dis order) F41.1 and Severe episode of recurrent major depressive disorder, without psychotic features F33.2 [facility] [address] [id number] [address] [place] [address] Jul, BELLA (generalized anxiety dis order) F41.1 ; Severe episode of recurrent major depressive disorder, without psychotic features F33.2 and Morbid obesity E66.01 [facility] [address] [id number] [address] [place] [phone] Jul, BELLA (generalized anxiety dis order) F41.1 and Severe episode of recurrent major depressive disorder, without psychotic features F33.2 [place] [address] [id number] [address] [place] [phone] June, BELLA (generalized anxiety dis order) F41.1 ; Severe episode of recurrent major depressive disorder, without psychotic features F33.2 and Morbid obesity E66.01 [place] [address] [facility] [id number] [address] [place] [phone] June, Benign hypertension I10 [facility] [address] [id number] [address] [place] [phone] May, [facility] [address] [id number] [address] [place] [phone] May, BELLA (generalized anxiety dis order) F41.1 ; Severe episode of recurrent major depressive disorder, without psychotic features F33.2 and Morbid obesity E66.01 [facility] [address] [id number] [address] [place] [phone] Apr, [facility] [address] [id number] [address] [place] [address] Mar, [facility] [address] [id number] [address] [place] [phone] Mar, Severe episode of recurrent major depressive disorder, without psychotic features F33.2 ; BELLA (generalized anxiety disorder) F41.1 and BMI 50.0-59.9, adult Z68.43 [facility] [address] [id number] [address] [place] [phone] Mar, [facility] [address] [facility] [id number] [address] [place] [address] Mar, Benign hypertension I10 [facility] [address] [id number] [address] [place] [phone] Mar, [facility] [address] [facility] [id number] [address] [place] [phone] Mar, [facility] [address] [facility] [id number] [address] [place] [phone] Jan, [facility] [address] [facility] [id number] [address] [place] [phone] Jan, [facility] [address] [facility] [id number] [address] [place] [phone] Jan, Hypersomnolence G47.10 [facility] [address] [facility] [id number] [address] [place] [phone] Jan, Lumbago with sciatica, right side M54.41 ; Other chronic pain G89.29 and BMI 50.0-59.9, adult Z68.43 [facility] [address] [facility] [id number] [address] [place] [phone] Jan, [facility] [address] [facility] [id number] [address] [place] [phone] Dec, Severe episode of recurrent major depressive disorder, without psychotic features F33.2 ; BELLA (generalized anxiety disorder) F41.1 ; Hypersomnolence G47.10 and BMI 50.0-59.9, adult Z68.43 [facility] [address] [facility] [id number] [address] [place] [phone] Oct, [facility] [address] [facility] [id number] [address] [place] [address] Sep, Severe episode of recurrent major depressive disorder, without psychotic features F33.2 ; BELLA (generalized anxiety disorder) F41.1 and BMI 50.0-59.9, adult Z68.43 [facility] [address] [address] Sep, [place] [address] [address] Sep, Severe episode of recurrent major depressive disorder, without psychotic features F33.2 [place] [address] [address] Sep, Skin disorder L98.9 and BMI 50.0-59.9, adult Z68.43 [place] [address] [address] Sep, Benign hypertension I10 ; Ab scess L02.91 ; Gout M10.9 ; Mixed hyperlipidemia E78.2 and BMI 50.0-59.9, adult Z68.43 [place] [address] [address] Aug, Severe episode of recurrent major depressive disorder, without psychotic features F33.2 ; BELLA (generalized anxiety disorder) F41.1 and BMI 50.0-59.9, adult Z68.43 [place] [address] [address] Jul, BMI 50.0-59.9, adult Z68.43 ; BELLA (generalized anxiety disorder) F41.1 and Severe episode of recurrent major depressive disorder, without psychotic features F33.2 [place] [address] [address] June, [place] [address] [place] [id number] [place] [address] June, Blood in the stool K92.1 and BMI 50.0-59.9, adult Z68.43 [place] [address] [place] [id number] [address] [place] [phone] May, [place] [address] [place] [id number] [place] [phone] Apr, Chronic depression F32.9 ; B enign hypertension I10 ; Mixed hyperlipidemia E78.2 ; Gout M10.9 and BMI 50.0-59.9, adult Z68.43 [place] [address] [place] [id number] [place] [address] Mar, Mixed hyperlipidemia E78.2 ; Benign hypertension I10 and Gout M10.9 [place] [address] [place] [id number] [address] [place] [phone] Mar, Mixed hyperlipidemia E78.2 ; Gout M10.9 and Benign hypertension I10 [facility] [address] [place] [id number] [address] [place] [phone] Jan, Acute left-sided low back pa in with left-sided sciatica M54.42 and BMI 50.0-59.9, adult Z68.43 [facility] [address] [place] [id number] [address] [place] [phone] 22 Oct, 2016 Acute midline low back pain with left-sided sciatica M54.42 [place] [address] [place] [id number] [address] [place] [phone] Oct, [place] [address] [place] [id number] [place] [phone] 13 Oct, 2016 Chronic depression F32.9 ; B enign hypertension I10 ; Mixed hyperlipidemia E78.2 and Gout M10.9 [place] [address] [place] [id number] [place] [phone] Sep, Chronic depression F32.9 ; B enign hypertension I10 ; Mixed hyperlipidemia E78.2 and Gout M10.9 [place] [address] [place] [id number] [address] [place] [phone] June, Chronic depression F32.9 ; G out M10.9 ; Benign hypertension I10 ; Obsessive-compulsive disorders F42.9 and Mixed hyperlipidemia E78.2 [place] [address] [place] [id number] [address] [place] [phone] May, Gout M10.9 ; Mixed hyperlipi demia E78.2 and Benign hypertension I10 [facility] [address] [facility] [id number] [address] [place] [phone] Apr, Chronic depression F32.9 ; G out M10.9 ; Benign hypertension I10 ; Obsessive-compulsive disorders F42.9 ; Abnormal results of thyroid function studies R94.6 and Mixed hyperlipidemia E78.2 [facility] [address] [facility] [id number] [address] [place] [phone] Apr, [facility] [address] [id number] [address] [place] [phone] Apr, [facility] [address] [place] [id number] [address] [place] [phone] Jan, [facility] [address] [place] [id number] [address] [place] [phone] Dec, [facility] [address] [place] [id number] [address] [place] [phone] Oct, [facility] [address] [facility] [id number] [address] [place] [phone] Sep, Anxiety state, unspecified 3 00.00 and Major depressive disorder, single episode, mild 296.21 [facility] [address] [place] [id number] [address] [place] [phone] Sep, [facility] [address] [facility] [id number] [address] [place] [phone] Aug, [facility] [address] [facility] [id number] [address] [place] [phone] Jul, [facility] [address] [facility] [id number] [address] [place] [address] June, Anxiety state, unspecified 3 00.00 and Depressive disorder, not elsewhere classified 311 [facility] [address] [place] [id number] [address] [place] [phone] June, [facility] [address] [place] [id number] [address] [place] [phone] June, Abnormal thyroid blood test 794.5 [facility] [address] [id number] [address] [place] [address], [place] [address] 14 May, 2014 [facility] [address] [id number] [address] [place] [phone] 13 May, 2014 [facility] [address] [id number] [address] [place] [phone] 24 Apr, 2014 [facility] [address] [id number] [address] [place] [address], [place] [address] 24 Apr, 2014 [facility] [address] [id number] [address] [place] [address], [place] [address] Apr, [facility] [address] [id number] [address] [place] [address], [place] [address] Apr, [facility] [address] [id number] [address] [place] [address], [place] [address] Apr, [facility] [address] [id number] [address] [place] [phone] Apr, [facility] [address] [id number] [address] [place] [address], [place] [address] Apr, [facility] [address] [id number] [address] [place] [phone] Apr, [facility] [address] [id number] [address] [place] [address], [place] [address] Apr, [facility] [address] [id number] [address] [place] [phone] Apr, [facility] [address] [id number] [address] [place] [address], [place] [address] 24 Apr, 2014 [facility] [address] [id number] [address] [place] [phone] 24 Apr, 2014 [facility] [address] [id number] [address] [place] [phone] Apr, [facility] [address] [id number] [address] [place] [address], [place] [address] Apr, [facility] [address] [id number] [address] [place] [address], [place] [address] Apr, [facility] [address] [id number] [address] [place] [address], [place] [address] Apr, [facility] [address] [id number] [address] [place] [address], [place] [address] Mar, [facility] [address] [id number] [address] [place] [address], [place] [address] Mar, [facility] [address] [id number] [address] [place] [address], [place] [address] Mar, [facility] [address] [id number] [address] [place] [address], [place] [address] Mar, [facility] [address] [id number] [address] [place] [address], [place] [address] Mar, [facility] [address] [id number] [address] [place] [address], [place] [address] Mar, [facility] [address] [id number] [address] [place] [address], [place] [address] Mar, [facility] [address] [id number] [address] [place] [phone] Mar, [facility] [address] [id number] [address] [place] [phone] Nov, [facility] [address] [id number] [address] [place] [address], [place] [address] Nov, [facility] [address] [id number] [address] [place] [address] Nov, [facility] [address] [id number] [address] [place] [address], [place] [address] Nov, [facility] [address] [id number] [address] [place] [address] 10 Nov, 2013 IMMUNIZATIONS No Known Immunizations SOCIAL HISTORY Never Assessed REASON FOR VISIT PLAN OF CARE VITAL SIGNS Height 78 in 2013-12-09 Weight 318.9 lbs 2013-12-09 Temperature 96.5 degrees Fahrenheit 2013-12-09 Heart Rate 72 bpm 2013-12-09 Respiratory Rate 18 2013-12-09 Blood pressure systolic 140 mmHg 2013-12-09 Blood pressure diastolic 98 mmHg 2013-12-09 MEDICATIONS Unknown Medications RESULTS No Results PROCEDURES Procedure Date Ordered Result Body Site COMPLETE CBC W/AUTO DIFF WBC Dec 09, 2013 ASSAY OF BLOOD/URIC ACID Dec 09, 2013 ASSAY THYROID STIM HORMONE Dec 09, 2013 COMPREHEN METABOLIC PANEL Dec 09, 2013 CULTURE, BACTERIA, OTHER Dec 09, 2013 VENIPUNCT, ROUTINE* Dec 09, 2013 INSTRUCTIONS MEDICATIONS ADMINISTERED No Known Medications MEDICAL (GENERAL) HISTORY Type Description Date Medical History hypertension 2007 Medical History hyperlipidemia 2007 Medical History obesity Medical History chronic pain 2007 Medical History [id number] Medical History depression Medical History Bipolar disorder, unspecified Medical History Bipolar disorder, unspecified Medical History sleep apnea Surgical History Birthmark removed from right side of nos e Hospitalization History depression 03/2014 Hospitalization History depression 04/2014
--- OUTSIDE RECORDS SUMMARY | 2019-03-01 00:24 | XMS REPORT ---
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 Active 54611826 Problem Abnormal results of thyroid function studies R94.6 Active 939454198 Problem Mixed hyperlipidemia E78.2 Active 798504799 Problem Acute midline low back pain with left-sided sciatica M54.42 Active 675067047 Problem Lumbago with sciatica, right side M54.41 Active 023211004 Problem Gout M10.9 Active 04303639 Problem Other chronic pain G89.29 Active 8 7414182 Problem Benign hypertension I10 Active 00171499 Problem Acute left-sided low back pain with left-sided sciatica M54.42 Active 599956126 Problem Severe episode of recurrent major depressive disorder, without psychotic features F33.2 Active 22523297 Problem BELLA (generalized anxiety disorder) F41.1 Active 98432043 Problem Hypersomnolence G47.10 Active 7769 2006 ALLERGIES No Information ENCOUNTERS Encounter Location Date Diagnosis [facility] [address] [facility] [id number] [address] [place] [phone] Sep, [facility] [address] [facility] [id number] [address] [place] [phone] Aug, [facility] [address] [facility] [id number] [address] [place] [phone] Jul, BELLA (generalized anxiety dis order) F41.1 ; Severe episode of recurrent major depressive disorder, without psychotic features F33.2 and Morbid obesity E66.01 [facility] [address] [id number] [address] [place] [phone] Jul, BELLA (generalized anxiety dis order) F41.1 and Severe episode of recurrent major depressive disorder, without psychotic features F33.2 [facility] [address] [id number] [address] [place] [phone] June, BELLA (generalized anxiety dis order) F41.1 ; Severe episode of recurrent major depressive disorder, without psychotic features F33.2 and Morbid obesity E66.01 [facility] [address] [id number] [address] [place] [phone] June, Benign hypertension I10 [facility] [address] [id number] [address] [place] [phone] May, [facility] [address] [facility] [id number] [address] [place] [id number] May, BELLA (generalized anxiety dis order) F41.1 ; Severe episode of recurrent major depressive disorder, without psychotic features F33.2 and Morbid obesity E66.01 [facility] [address] [id number] [address] [place] [phone] Apr, [facility] [address] [facility] [id number] [address] [place] [phone] Mar, [facility] [address] [id number] [address] [place] [phone] Mar, Severe episode of recurrent major depressive disorder, without psychotic features F33.2 ; BELLA (generalized anxiety disorder) F41.1 and BMI 50.0-59.9, adult Z68.43 [facility] [address] [id number] [address] [place] [phone] Mar, [facility] [address] [id number] [address] [place] [phone] Mar, Benign hypertension I10 [facility] [address] [facility] [id number] [address] [place] [phone] Mar, [facility] [address] [id number] [address] [place] [id number] Mar, [facility] [address] [id number] [address] [place] [phone] Jan, [facility] [address] [id number] [address] [place] [phone] Jan, [facility] [address] [id number] [address] [place] [phone] Jan, Hypersomnolence G47.10 [facility] [address] [id number] [address] [place] [phone] Jan, Lumbago with sciatica, right side M54.41 ; Other chronic pain G89.29 and BMI 50.0-59.9, adult Z68.43 [facility] [address] [id number] [address] [place] [address] Jan, [facility] [address] [id number] [address] [place] [phone] Dec, Severe episode of recurrent major depressive disorder, without psychotic features F33.2 ; BELLA (generalized anxiety disorder) F41.1 ; Hypersomnolence G47.10 and BMI 50.0-59.9, adult Z68.43 [facility] [address] [facility] [id number] [address] [place] [phone] Oct, [facility] [address] [facility] [id number] [address] [place] [phone] Sep, Severe episode of recurrent major depressive disorder, without psychotic features F33.2 ; BELLA (generalized anxiety disorder) F41.1 and BMI 50.0-59.9, adult Z68.43 [facility] [address] [id number] [address] [place] [address] Sep, [facility] [address] [facility] [id number] [address] [place] [phone] Sep, Severe episode of recurrent major depressive disorder, without psychotic features F33.2 [place] [address] [address] Sep, Skin disorder L98.9 and BMI 50.0-59.9, adult Z68.43 [place] [address] [place] [id number] [place] [address] Sep, Benign hypertension I10 ; Ab scess L02.91 ; Gout M10.9 ; Mixed hyperlipidemia E78.2 and BMI 50.0-59.9, adult Z68.43 [place] [address] [address] Aug, Severe episode of recurrent major depressive disorder, without psychotic features F33.2 ; BELLA (generalized anxiety disorder) F41.1 and BMI 50.0-59.9, adult Z68.43 [place] [address] [address] Jul, BMI 50.0-59.9, adult Z68.43 ; BELLA (generalized anxiety disorder) F41.1 and Severe episode of recurrent major depressive disorder, without psychotic features F33.2 [place] [address] [address] June, [place] [address] [place] [id number] [place] [phone] June, Blood in the stool K92.1 and BMI 50.0-59.9, adult Z68.43 [place] [address] [address] May, [place] [address] [place] [id number] [place] [address] Apr, Chronic depression F32.9 ; B enign hypertension I10 ; Mixed hyperlipidemia E78.2 ; Gout M10.9 and BMI 50.0-59.9, adult Z68.43 [place] [address] [place] [id number] [place] [phone] Mar, Mixed hyperlipidemia E78.2 ; Benign hypertension I10 and Gout M10.9 [facility] [address] [place] [id number] [place] [address] Mar, Mixed hyperlipidemia E78.2 ; Gout M10.9 and Benign hypertension I10 [facility] [address] [place] [id number] [place] [phone] Jan, Acute left-sided low back pa in with left-sided sciatica M54.42 and BMI 50.0-59.9, adult Z68.43 [facility] [address] [place] [id number] [place] [id number] 22 Oct, 2016 Acute midline low back pain with left-sided sciatica M54.42 [place] [address] [place] [id number] [place] [phone] 20 Oct, 2016 [place] [address] [address] 13 Oct, 2016 Chronic depression F32.9 ; B enign hypertension I10 ; Mixed hyperlipidemia E78.2 and Gout M10.9 [place] [address] [phone] Sep, Chronic depression F32.9 ; B enign hypertension I10 ; Mixed hyperlipidemia E78.2 and Gout M10.9 [place] [address] [id number] June, Chronic depression F32.9 ; G out M10.9 ; Benign hypertension I10 ; Obsessive-compulsive disorders F42.9 and Mixed hyperlipidemia E78.2 [place] [address] [place] [id number] [place] [phone] May, Gout M10.9 ; Mixed hyperlipi demia E78.2 and Benign hypertension I10 [place] [address] [place] [id number] [place] [phone] Apr, Chronic depression F32.9 ; G out M10.9 ; Benign hypertension I10 ; Obsessive-compulsive disorders F42.9 ; Abnormal results of thyroid function studies R94.6 and Mixed hyperlipidemia E78.2 [facility] [address] [id number] [address] [place] [phone] Apr, [facility] [address] [id number] [address] [place] [phone] Apr, [facility] [address] [facility] [id number] [address] [place] [phone] Jan, [facility] [address] [id number] [address] [place] [phone] Dec, [facility] [address] [facility] [id number] [address] [place] [phone] Oct, [facility] [address] [facility] [id number] [address] [place] [phone] Sep, Anxiety state, unspecified 3 00.00 and Major depressive disorder, single episode, mild 296.21 [facility] [address] [facility] [id number] [address] [place] [phone] Sep, [facility] [address] [facility] [id number] [address] [place] [phone] Aug, [facility] [address] [facility] [id number] [address] [place] [phone] Jul, [facility] [address] [facility] [id number] [address] [place] [phone] June, Anxiety state, unspecified 3 00.00 and Depressive disorder, not elsewhere classified 311 [facility] [address] [id number] [address] [place] [id number] June, [facility] [address] [facility] [id number] [address] [place] [address] June, Abnormal thyroid blood test 794.5 [facility] [address] [facility] [id number] [address] [place] [phone] May, [facility] [address] [id number] [address] [place] [address], [place] [phone] 13 May, 2014 [facility] [address] [id number] [address] [place] [address], [place] [id number] 24 Apr, 2014 [facility] [address] [id number] [address] [place] [address], [place] [address] 24 Apr, 2014 [facility] [address] [id number] [address] [place] [address], [place] [address] 23 Apr, 2014 [facility] [address] [id number] [address] [place] [address], [place] [address] 23 Apr, 2014 [facility] [address] [id number] [address] [place] [address], [place] [address] Apr, [facility] [address] [id number] [address] [place] [address], [place] [address] 19 Apr, 2014 [facility] [address] [id number] [address] [place] [address], [place] [address] 17 Apr, 2014 [facility] [address] [id number] [address] [place] [address], [place] [address] 17 Apr, 2014 [facility] [address] [id number] [address] [place] [address], [place] [address] 24 Apr, 2014 [facility] [address] [id number] [address] [place] [address], [place] [address] 24 Apr, 2014 [facility] [address] [id number] [address] [place] [address], [place] [address] 24 Apr, 2014 [facility] [address] [id number] [address] [place] [address], [place] [address] 24 Apr, 2014 [facility] [address] [id number] [address] [place] [address], [place] [address] 04 Apr, 2014 [facility] [address] [id number] [address] [place] [address], [place] [address] 04 Apr, 2014 [facility] [address] [id number] [address] [place] [address], [place] [address] Apr, [facility] [address] [id number] [address] [place] [phone] Apr, [facility] [address] [id number] [address] [place] [phone] Mar, [facility] [address] [id number] [address] [place] [phone] Mar, [facility] [address] [id number] [address] [place] [phone] Mar, [facility] [address] [id number] [address] [place] [phone] Mar, [facility] [address] [id number] [address] [place] [phone] Mar, [facility] [address] [id number] [address] [place] [id number] Mar, [facility] [address] [id number] [address] [place] [phone] Mar, [facility] [address] [id number] [address] [place] [phone] Mar, [facility] [address] [id number] [address] [place] [id number] Nov, [facility] [address] [id number] [address] [place] [phone] Nov, [facility] [address] [id number] [address] [place] [phone] Nov, [facility] [address] [id number] [address] [place] [phone] Nov, [facility] [address] [id number] [address] [place] [phone] Nov, IMMUNIZATIONS No Known Immunizations SOCIAL HISTORY Never Assessed REASON FOR VISIT PLAN OF CARE VITAL SIGNS Height 78 in 2014-05-22 Weight 279.38 lbs 2014-05-22 Temperature 97.9 degrees Fahrenheit 2014-05-22 Heart Rate 74 bpm 2014-05-22 Respiratory Rate 28 2014-05-22 Blood pressure systolic 108 mmHg 2014-05-22 Blood pressure diastolic 68 mmHg 2014-05-22 MEDICATIONS Unknown Medications RESULTS No Results PROCEDURES Procedure Date Ordered Result Body Site PSYCH DIAG EVAL W/MED SRVCS May 22, 2014 INSTRUCTIONS MEDICATIONS ADMINISTERED No Known Medications MEDICAL (GENERAL) HISTORY Type Description Date Medical History hypertension 2006 Medical History hyperlipidemia 2006 Medical History obesity Medical History chronic pain 2007 Medical History [id number] Medical History depression Medical History Bipolar disorder, unspecified Medical History Bipolar disorder, unspecified Medical History sleep apnea Surgical History Birthmark removed from right side of nos e Hospitalization History depression 03/2014 Hospitalization History depression 04/2014
--- OUTSIDE RECORDS SUMMARY | 2019-03-01 00:24 | XMS REPORT ---
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 Active 82766775 Problem Abnormal results of thyroid function studies R94.6 Active 862972850 Problem Mixed hyperlipidemia E78.2 Active 674524370 Problem Acute midline low back pain with left-sided sciatica M54.42 Active 203442718 Problem Lumbago with sciatica, right side M54.41 Active 884961340 Problem Gout M10.9 Active 49743402 Problem Other chronic pain G89.29 Active 8 6302240 Problem Benign hypertension I10 Active 85430860 Problem Acute left-sided low back pain with left-sided sciatica M54.42 Active 585979265 Problem Severe episode of recurrent major depressive disorder, without psychotic features F33.2 Active 78424097 Problem BELLA (generalized anxiety disorder) F41.1 Active 68105100 Problem Hypersomnolence G47.10 Active 7769 2006 ALLERGIES No Information ENCOUNTERS Encounter Location Date Diagnosis [facility] [address] [facility] [id number] [address] [place] [phone] Dec, [facility] [address] [facility] [id number] [address] [place] [phone] Dec, [facility] [address] [facility] [id number] [address] [place] [phone] Nov, [facility] [address] [facility] [id number] [address] [place] [phone] Oct, Severe episode of recurrent major depressive disorder, without psychotic features F33.2 and BELLA (generalized anxiety disorder) F41.1 [place] [address] [place] [id number] [address] [place] [phone] Oct, BELLA (generalized anxiety dis order) F41.1 ; Severe episode of recurrent major depressive disorder, without psychotic features F33.2 and Morbid obesity E66.01 [place] [address] [place] [id number] [address] [place] [phone] Sep, BELLA (generalized anxiety dis order) F41.1 and Severe episode of recurrent major depressive disorder, without psychotic features F33.2 [place] [address] [place] [id number] [address] [place] [phone] Jul, BELLA (generalized anxiety dis order) F41.1 ; Severe episode of recurrent major depressive disorder, without psychotic features F33.2 and Morbid obesity E66.01 [place] [address] [place] [id number] [address] [place] [phone] Jul, BELLA (generalized anxiety dis order) F41.1 and Severe episode of recurrent major depressive disorder, without psychotic features F33.2 [place] [address] [place] [id number] [address] [place] [phone] June, BELLA (generalized anxiety dis order) F41.1 ; Severe episode of recurrent major depressive disorder, without psychotic features F33.2 and Morbid obesity E66.01 [place] [address] [place] [id number] [address] [place] [phone] June, Benign hypertension I10 [place] [address] [facility] [id number] [address] [place] [phone] May, [place] [address] [place] [id number] [address] [place] [phone] May, BELLA (generalized anxiety dis order) F41.1 ; Severe episode of recurrent major depressive disorder, without psychotic features F33.2 and Morbid obesity E66.01 [place] [address] [place] [id number] [address] [place] [phone] Apr, [facility] [address] [facility] [facility] [id number] [address] [place] [phone] Mar, [facility] [address] [facility] [id number] [address] [place] [phone] Mar, Severe episode of recurrent major depressive disorder, without psychotic features F33.2 ; BELLA (generalized anxiety disorder) F41.1 and BMI 50.0-59.9, adult Z68.43 [facility] [address] [place] [id number] [address] [place] [phone] Mar, [facility] [address] [place] [id number] [place] [phone] Mar, Benign hypertension I10 [facility] [address] [place] [id number] [address] [place] [phone] Mar, [facility] [address] [place] [id number] [address] [place] [phone] Mar, [facility] [address] [place] [id number] [address] [place] [phone] Jan, [facility] [address] [place] [id number] [address] [place] [phone] Jan, [facility] [address] [place] [id number] [address] [place] [phone] Jan, Hypersomnolence G47.10 [facility] [address] [place] [id number] [address] [place] [phone] Jan, Lumbago with sciatica, right side M54.41 ; Other chronic pain G89.29 and BMI 50.0-59.9, adult Z68.43 [facility] [address] [place] [id number] [address] [place] [phone] Jan, [facility] [address] [place] [id number] [address] [place] [phone] Dec, Severe episode of recurrent major depressive disorder, without psychotic features F33.2 ; BELLA (generalized anxiety disorder) F41.1 ; Hypersomnolence G47.10 and BMI 50.0-59.9, adult Z68.43 [place] [address] [address] Oct, [place] [address] [address] Sep, Severe episode of recurrent major depressive disorder, without psychotic features F33.2 ; BELLA (generalized anxiety disorder) F41.1 and BMI 50.0-59.9, adult Z68.43 [place] [address] [address] Sep, [place] [address] [address] Sep, Severe episode of recurrent major depressive disorder, without psychotic features F33.2 [place] [address] [address] Sep, Skin disorder L98.9 and BMI 50.0-59.9, adult Z68.43 [place] [address] [address] Sep, Benign hypertension I10 ; Ab scess L02.91 ; Gout M10.9 ; Mixed hyperlipidemia E78.2 and BMI 50.0-59.9, adult Z68.43 [place] [address] [address] Aug, Severe episode of recurrent major depressive disorder, without psychotic features F33.2 ; BELLA (generalized anxiety disorder) F41.1 and BMI 50.0-59.9, adult Z68.43 [place] [address] [address] Jul, BMI 50.0-59.9, adult Z68.43 ; BELLA (generalized anxiety disorder) F41.1 and Severe episode of recurrent major depressive disorder, without psychotic features F33.2 [place] [address] [address] June, [place] [address] [address] June, Blood in the stool K92.1 and BMI 50.0-59.9, adult Z68.43 [place] [address] [address] May, [place] [address] [address] Apr, Chronic depression F32.9 ; B enign hypertension I10 ; Mixed hyperlipidemia E78.2 ; Gout M10.9 and BMI 50.0-59.9, adult Z68.43 [place] [address] [address] Mar, Mixed hyperlipidemia E78.2 ; Benign hypertension I10 and Gout M10.9 [place] [address] [address] Mar, Mixed hyperlipidemia E78.2 ; Gout M10.9 and Benign hypertension I10 [facility] [address] [address] Jan, Acute left-sided low back pa in with left-sided sciatica M54.42 and BMI 50.0-59.9, adult Z68.43 [facility] [address] [address] Oct, Acute midline low back pain with left-sided sciatica M54.42 [place] [address] [address] 20 Oct, 2016 [place] [address] [address] 13 Oct, 2016 Chronic depression F32.9 ; B enign hypertension I10 ; Mixed hyperlipidemia E78.2 and Gout M10.9 [place] [address] [place] [id number] [address] [place] [address] Sep, Chronic depression F32.9 ; B enign hypertension I10 ; Mixed hyperlipidemia E78.2 and Gout M10.9 [facility] [address] [place] [id number] [place] [phone] June, Chronic depression F32.9 ; G out M10.9 ; Benign hypertension I10 ; Obsessive-compulsive disorders F42.9 and Mixed hyperlipidemia E78.2 [place] [address] [address] May, Gout M10.9 ; Mixed hyperlipi demia E78.2 and Benign hypertension I10 [place] [address] [address] Apr, Chronic depression F32.9 ; G out M10.9 ; Benign hypertension I10 ; Obsessive-compulsive disorders F42.9 ; Abnormal results of thyroid function studies R94.6 and Mixed hyperlipidemia E78.2 [place] [address] [address] Apr, [place] [address] [address] Apr, [place] [address] [address] Jan, [place] [address] [address] Dec, [place] [address] [place] [id number] [place] [phone] Oct, [place] [address] [address] Sep, Anxiety state, unspecified 3 00.00 and Major depressive disorder, single episode, mild 296.21 [place] [address] [address] Sep, [facility] [address] [id number] [address] [place] [address] Aug, [facility] [address] [id number] [address] [place] [phone] Jul, [facility] [address] [id number] [address] [place] [phone] June, Anxiety state, unspecified 3 00.00 and Depressive disorder, not elsewhere classified 311 [facility] [address] [id number] [address] [place] [address] June, [facility] [address] [id number] [address] [place] [address] June, Abnormal thyroid blood test 794.5 [facility] [address] [id number] [address] [place] [phone] May, [facility] [address] [id number] [address] [place] [phone] May, [facility] [address] [id number] [address] [place] [phone] Apr, [facility] [address] [id number] [address] [place] [address], [place] [address] Apr, [facility] [address] [id number] [address] [place] [phone] Apr, [facility] [address] [id number] [address] [place] [phone] Apr, [facility] [address] [id number] [address] [place] [phone] Apr, [facility] [address] [id number] [address] [place] [phone] Apr, [facility] [address] [id number] [address] [place] [phone] Apr, [facility] [address] [id number] [address] [place] [phone] Apr, [facility] [address] [id number] [address] [place] [address], [place] [address] Apr, [facility] [address] [id number] [address] [place] [address], [place] [address] Apr, [facility] [address] [id number] [address] [place] [address], [place] [address] Apr, [facility] [address] [id number] [address] [place] [address], [place] [address] Apr, [facility] [address] [id number] [address] [place] [address], [place] [address] Apr, [facility] [address] [id number] [address] [place] [address], [place] [address] Apr, [facility] [address] [id number] [address] [place] [address], [place] [address] Apr, [facility] [address] [id number] [address] [place] [address], [place] [address] Apr, [facility] [address] [id number] [address] [place] [address], [place] [address] Mar, [facility] [address] [id number] [address] [place] [address], [place] [address] Mar, [facility] [address] [id number] [address] [place] [address], [place] [address] Mar, [facility] [address] [id number] [address] [place] [address], [place] [address] Mar, [facility] [address] [id number] [address] [place] [address], [place] [address] Mar, [facility] [address] [id number] [address] [place] [address], [place] [address] Mar, [facility] [address] [id number] [address] [place] [address], [place] [address] Mar, [facility] [address] [id number] [address] [place] [phone] Mar, [facility] [address] [facility] [id number] [address] [place] [phone] Nov, [facility] [address] [facility] [id number] [address] [place] [phone] Nov, [facility] [address] [facility] [id number] [address] [place] [phone] Nov, [facility] [address] [facility] [id number] [address] [place] [phone] Nov, [facility] [address] [facility] [id number] [address] [place] [address] Nov, IMMUNIZATIONS No Known Immunizations SOCIAL HISTORY Never Assessed REASON FOR VISIT PLAN OF CARE VITAL SIGNS MEDICATIONS Unknown Medications RESULTS No Results PROCEDURES No Known procedures INSTRUCTIONS MEDICATIONS ADMINISTERED No Known Medications MEDICAL (GENERAL) HISTORY Type Description Date Medical History hypertension 2006 Medical History hyperlipidemia 2006 Medical History obesity Medical History chronic pain 2007 Medical History [id number] Medical History depression Medical History Bipolar disorder, unspecified Medical History Bipolar disorder, unspecified Medical History sleep apnea Surgical History Birthmark removed from right side of nos e Hospitalization History depression 03/2014 Hospitalization History depression 04/2014
--- OUTSIDE RECORDS SUMMARY | 2019-03-01 00:24 | XMS REPORT ---
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 Active 86584734 Problem Abnormal results of thyroid function studies R94.6 Active 634067784 Problem Mixed hyperlipidemia E78.2 Active 941351245 Problem Acute midline low back pain with left-sided sciatica M54.42 Active 949585822 Problem Lumbago with sciatica, right side M54.41 Active 194103912 Problem Gout M10.9 Active 37548434 Problem Other chronic pain G89.29 Active 8 4678680 Problem Benign hypertension I10 Active 09203648 Problem Acute left-sided low back pain with left-sided sciatica M54.42 Active 404341749 Problem Severe episode of recurrent major depressive disorder, without psychotic features F33.2 Active 34688237 Problem BELLA (generalized anxiety disorder) F41.1 Active 61001350 Problem Hypersomnolence G47.10 Active 7769 2006 ALLERGIES No Information ENCOUNTERS Encounter Location Date Diagnosis [facility] [address] [facility] [id number] [address] [place] [address] Oct, [facility] [address] [facility] [id number] [address] [place] [phone] Oct, [facility] [address] [facility] [id number] [address] [place] [phone] Sep, BELLA (generalized anxiety dis order) F41.1 and Severe episode of recurrent major depressive disorder, without psychotic features F33.2 [facility] [address] [id number] [address] [place] [phone] Jul, BELLA (generalized anxiety dis order) F41.1 ; Severe episode of recurrent major depressive disorder, without psychotic features F33.2 and Morbid obesity E66.01 [facility] [address] [id number] [address] [place] [address] Jul, BELLA (generalized anxiety dis order) F41.1 and Severe episode of recurrent major depressive disorder, without psychotic features F33.2 [place] [address] [id number] [address] [place] [address] June, BELLA (generalized anxiety dis order) F41.1 ; Severe episode of recurrent major depressive disorder, without psychotic features F33.2 and Morbid obesity E66.01 [place] [address] [facility] [id number] [address] [place] [address] June, Benign hypertension I10 [facility] [address] [id number] [address] [place] [address] May, [facility] [address] [id number] [address] [place] [address] May, BELLA (generalized anxiety dis order) F41.1 ; Severe episode of recurrent major depressive disorder, without psychotic features F33.2 and Morbid obesity E66.01 [facility] [address] [id number] [address] [place] [address] Apr, [facility] [address] [id number] [address] [place] [address] Mar, [facility] [address] [id number] [address] [place] [address] Mar, Severe episode of recurrent major depressive disorder, without psychotic features F33.2 ; BELLA (generalized anxiety disorder) F41.1 and BMI 50.0-59.9, adult Z68.43 [facility] [address] [id number] [address] [place] [phone] Mar, [facility] [address] [facility] [id number] [address] [place] [address] Mar, Benign hypertension I10 [facility] [address] [id number] [address] [place] [address] Mar, [facility] [address] [facility] [id number] [address] [place] [address] Mar, [facility] [address] [facility] [id number] [address] [place] [address] Jan, [facility] [address] [facility] [id number] [address] [place] [address] Jan, [facility] [address] [facility] [id number] [address] [place] [address] Jan, Hypersomnolence G47.10 [facility] [address] [facility] [id number] [address] [place] [address] Jan, Lumbago with sciatica, right side M54.41 ; Other chronic pain G89.29 and BMI 50.0-59.9, adult Z68.43 [facility] [address] [facility] [id number] [address] [place] [address] Jan, [facility] [address] [facility] [id number] [address] [place] [address] Dec, Severe episode of recurrent major depressive disorder, without psychotic features F33.2 ; BLELA (generalized anxiety disorder) F41.1 ; Hypersomnolence G47.10 and BMI 50.0-59.9, adult Z68.43 [facility] [address] [facility] [id number] [address] [place] [phone] Oct, [facility] [address] [facility] [id number] [address] [place] [address] Sep, Severe episode of recurrent major depressive disorder, without psychotic features F33.2 ; BELLA (generalized anxiety disorder) F41.1 and BMI 50.0-59.9, adult Z68.43 [facility] [address] [address] Sep, [place] [address] [address] Sep, Severe episode of recurrent major depressive disorder, without psychotic features F33.2 [place] [address] [address] Sep, Skin disorder L98.9 and BMI 50.0-59.9, adult Z68.43 [place] [address] [address] Sep, Benign hypertension I10 ; Ab scess L02.91 ; Gout M10.9 ; Mixed hyperlipidemia E78.2 and BMI 50.0-59.9, adult Z68.43 [place] [address] [address] Aug, Severe episode of recurrent major depressive disorder, without psychotic features F33.2 ; BELLA (generalized anxiety disorder) F41.1 and BMI 50.0-59.9, adult Z68.43 [place] [address] [address] Jul, BMI 50.0-59.9, adult Z68.43 ; BELLA (generalized anxiety disorder) F41.1 and Severe episode of recurrent major depressive disorder, without psychotic features F33.2 [place] [address] [address] June, [place] [address] [place] [id number] [place] [address] June, Blood in the stool K92.1 and BMI 50.0-59.9, adult Z68.43 [place] [address] [place] [id number] [address] [place] [address] May, [place] [address] [place] [id number] [place] [address] Apr, Chronic depression F32.9 ; B enign hypertension I10 ; Mixed hyperlipidemia E78.2 ; Gout M10.9 and BMI 50.0-59.9, adult Z68.43 [place] [address] [place] [id number] [place] [address] Mar, Mixed hyperlipidemia E78.2 ; Benign hypertension I10 and Gout M10.9 [place] [address] [place] [id number] [address] [place] [address] Mar, Mixed hyperlipidemia E78.2 ; Gout M10.9 and Benign hypertension I10 [facility] [address] [place] [id number] [address] [place] [address] Jan, Acute left-sided low back pa in with left-sided sciatica M54.42 and BMI 50.0-59.9, adult Z68.43 [facility] [address] [place] [id number] [address] [place] [address] 22 Oct, 2016 Acute midline low back pain with left-sided sciatica M54.42 [place] [address] [place] [id number] [address] [place] [address] Oct, [place] [address] [place] [id number] [place] [address] 13 Oct, 2016 Chronic depression F32.9 ; B enign hypertension I10 ; Mixed hyperlipidemia E78.2 and Gout M10.9 [place] [address] [place] [id number] [place] [phone] Sep, Chronic depression F32.9 ; B enign hypertension I10 ; Mixed hyperlipidemia E78.2 and Gout M10.9 [place] [address] [place] [id number] [address] [place] [address] June, Chronic depression F32.9 ; G out M10.9 ; Benign hypertension I10 ; Obsessive-compulsive disorders F42.9 and Mixed hyperlipidemia E78.2 [place] [address] [place] [id number] [address] [place] [address] May, Gout M10.9 ; Mixed hyperlipi demia E78.2 and Benign hypertension I10 [facility] [address] [facility] [id number] [address] [place] [address] Apr, Chronic depression F32.9 ; G out M10.9 ; Benign hypertension I10 ; Obsessive-compulsive disorders F42.9 ; Abnormal results of thyroid function studies R94.6 and Mixed hyperlipidemia E78.2 [facility] [address] [facility] [id number] [address] [place] [address] Apr, [facility] [address] [id number] [address] [place] [address] Apr, [facility] [address] [place] [id number] [address] [place] [address] Jan, [facility] [address] [place] [id number] [address] [place] [address] Dec, [facility] [address] [place] [id number] [address] [place] [address] Oct, [facility] [address] [facility] [id number] [address] [place] [address] Sep, Anxiety state, unspecified 3 00.00 and Major depressive disorder, single episode, mild 296.21 [facility] [address] [place] [id number] [address] [place] [address] Sep, [facility] [address] [facility] [id number] [address] [place] [address] Aug, [facility] [address] [facility] [id number] [address] [place] [address] Jul, [facility] [address] [facility] [id number] [address] [place] [address] June, Anxiety state, unspecified 3 00.00 and Depressive disorder, not elsewhere classified 311 [facility] [address] [place] [id number] [address] [place] [address] June, [facility] [address] [place] [id number] [address] [place] [address] June, Abnormal thyroid blood test 794.5 [facility] [address] [id number] [address] [place] [address], [place] [address] 14 May, 2014 [facility] [address] [id number] [address] [place] [address] 13 May, 2014 [facility] [address] [id number] [address] [place] [address] 24 Apr, 2014 [facility] [address] [id number] [address] [place] [address], [place] [address] 24 Apr, 2014 [facility] [address] [id number] [address] [place] [address], [place] [address] Apr, [facility] [address] [id number] [address] [place] [address], [place] [address] Apr, [facility] [address] [id number] [address] [place] [address], [place] [address] Apr, [facility] [address] [id number] [address] [place] [address] Apr, [facility] [address] [id number] [address] [place] [address], [place] [address] Apr, [facility] [address] [id number] [address] [place] [address] Apr, [facility] [address] [id number] [address] [place] [address], [place] [address] Apr, [facility] [address] [id number] [address] [place] [address] Apr, [facility] [address] [id number] [address] [place] [address], [place] [address] 24 Apr, 2014 [facility] [address] [id number] [address] [place] [address] 24 Apr, 2014 [facility] [address] [id number] [address] [place] [address] Apr, [facility] [address] [id number] [address] [place] [address], [place] [address] Apr, [facility] [address] [id number] [address] [place] [address], [place] [address] Apr, [facility] [address] [id number] [address] [place] [address], [place] [address] Apr, [facility] [address] [id number] [address] [place] [address], [place] [address] Mar, [facility] [address] [id number] [address] [place] [address], [place] [address] Mar, [facility] [address] [id number] [address] [place] [address], [place] [address] Mar, [facility] [address] [id number] [address] [place] [address], [place] [address] Mar, [facility] [address] [id number] [address] [place] [address], [place] [address] Mar, [facility] [address] [id number] [address] [place] [address], [place] [address] Mar, [facility] [address] [id number] [address] [place] [address], [place] [address] Mar, [facility] [address] [id number] [address] [place] [address] Mar, [facility] [address] [id number] [address] [place] [id number] Nov, [facility] [address] [id number] [address] [place] [address], [place] [address] Nov, [facility] [address] [id number] [address] [place] [address] Nov, [facility] [address] [id number] [address] [place] [address], [place] [address] Nov, [facility] [address] [id number] [address] [place] [address] 10 Nov, 2013 IMMUNIZATIONS No Known Immunizations SOCIAL HISTORY Never Assessed REASON FOR VISIT PLAN OF CARE VITAL SIGNS MEDICATIONS Unknown Medications RESULTS No Results PROCEDURES No Known procedures INSTRUCTIONS MEDICATIONS ADMINISTERED No Known Medications MEDICAL (GENERAL) HISTORY Type Description Date Medical History hypertension 2006 Medical History hyperlipidemia 2006 Medical History obesity Medical History chronic pain 2007 Medical History [id number] Medical History depression Medical History Bipolar disorder, unspecified Medical History Bipolar disorder, unspecified Medical History sleep apnea Surgical History Birthmark removed from right side of nos e Hospitalization History depression 03/2014 Hospitalization History depression 04/2014
--- OUTSIDE RECORDS SUMMARY | 2019-03-01 00:24 | XMS REPORT ---
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 Active 51501405 Problem Abnormal results of thyroid function studies R94.6 Active 217072564 Problem Mixed hyperlipidemia E78.2 Active 089074410 Problem Acute midline low back pain with left-sided sciatica M54.42 Active 268235151 Problem Lumbago with sciatica, right side M54.41 Active 697796603 Problem Gout M10.9 Active 52209712 Problem Other chronic pain G89.29 Active 8 1242103 Problem Benign hypertension I10 Active 62957168 Problem Acute left-sided low back pain with left-sided sciatica M54.42 Active 526622906 Problem Severe episode of recurrent major depressive disorder, without psychotic features F33.2 Active 81839593 Problem BELLA (generalized anxiety disorder) F41.1 Active 26762896 Problem Hypersomnolence G47.10 Active 7769 2006 ALLERGIES No Information ENCOUNTERS Encounter Location Date Diagnosis [facility] [address] [facility] [id number] [address] [place] [phone] Sep, [facility] [address] [facility] [id number] [address] [place] [phone] Aug, [facility] [address] [facility] [id number] [address] [place] [phone] Jul, BELLA (generalized anxiety dis order) F41.1 ; Severe episode of recurrent major depressive disorder, without psychotic features F33.2 and Morbid obesity E66.01 [facility] [address] [id number] [address] [place] [phone] Jul, BELLA (generalized anxiety dis order) F41.1 and Severe episode of recurrent major depressive disorder, without psychotic features F33.2 [facility] [address] [id number] [address] [place] [phone] June, BELLA (generalized anxiety dis order) F41.1 ; Severe episode of recurrent major depressive disorder, without psychotic features F33.2 and Morbid obesity E66.01 [facility] [address] [id number] [address] [place] [phone] June, Benign hypertension I10 [facility] [address] [id number] [address] [place] [phone] May, [facility] [address] [id number] [address] [place] [phone] May, BELLA (generalized anxiety dis order) F41.1 ; Severe episode of recurrent major depressive disorder, without psychotic features F33.2 and Morbid obesity E66.01 [facility] [address] [id number] [address] [place] [phone] Apr, [facility] [address] [id number] [address] [place] [phone] Mar, [facility] [address] [id number] [address] [place] [phone] Mar, Severe episode of recurrent major depressive disorder, without psychotic features F33.2 ; BELLA (generalized anxiety disorder) F41.1 and BMI 50.0-59.9, adult Z68.43 [facility] [address] [id number] [address] [place] [phone] Mar, [facility] [address] [id number] [address] [place] [phone] Mar, Benign hypertension I10 [facility] [address] [id number] [address] [place] [phone] Mar, [facility] [address] [id number] [address] [place] [phone] Mar, [facility] [address] [id number] [address] [place] [phone] Jan, [facility] [address] [id number] [address] [place] [phone] Jan, [facility] [address] [id number] [address] [place] [phone] Jan, Hypersomnolence G47.10 [facility] [address] [id number] [address] [place] [phone] Jan, Lumbago with sciatica, right side M54.41 ; Other chronic pain G89.29 and BMI 50.0-59.9, adult Z68.43 [facility] [address] [facility] [id number] [address] [place] [phone] Jan, [facility] [address] [id number] [address] [place] [phone] Dec, Severe episode of recurrent major depressive disorder, without psychotic features F33.2 ; BELLA (generalized anxiety disorder) F41.1 ; Hypersomnolence G47.10 and BMI 50.0-59.9, adult Z68.43 [facility] [address] [id number] [address] [place] [phone] Oct, [facility] [address] [facility] [id number] [address] [place] [phone] Sep, Severe episode of recurrent major depressive disorder, without psychotic features F33.2 ; BELLA (generalized anxiety disorder) F41.1 and BMI 50.0-59.9, adult Z68.43 [facility] [address] [id number] [address] [place] [phone] Sep, [facility] [address] [facility] [id number] [address] [place] [phone] Sep, Severe episode of recurrent major depressive disorder, without psychotic features F33.2 [place] [address] [address] Sep, Skin disorder L98.9 and BMI 50.0-59.9, adult Z68.43 [place] [address] [address] Sep, Benign hypertension I10 ; Ab scess L02.91 ; Gout M10.9 ; Mixed hyperlipidemia E78.2 and BMI 50.0-59.9, adult Z68.43 [place] [address] [address] Aug, Severe episode of recurrent major depressive disorder, without psychotic features F33.2 ; BELLA (generalized anxiety disorder) F41.1 and BMI 50.0-59.9, adult Z68.43 [place] [address] [address] Jul, BMI 50.0-59.9, adult Z68.43 ; BELLA (generalized anxiety disorder) F41.1 and Severe episode of recurrent major depressive disorder, without psychotic features F33.2 [place] [address] [address] June, [place] [address] [phone] June, Blood in the stool K92.1 and BMI 50.0-59.9, adult Z68.43 [place] [address] [place] [id number] [place] [phone] May, [place] [address] [address] Apr, Chronic depression F32.9 ; B enign hypertension I10 ; Mixed hyperlipidemia E78.2 ; Gout M10.9 and BMI 50.0-59.9, adult Z68.43 [place] [address] [place] [id number] [place] [phone] Mar, Mixed hyperlipidemia E78.2 ; Benign hypertension I10 and Gout M10.9 [place] [address] [address] Mar, Mixed hyperlipidemia E78.2 ; Gout M10.9 and Benign hypertension I10 [facility] [address] [address] Jan, Acute left-sided low back pa in with left-sided sciatica M54.42 and BMI 50.0-59.9, adult Z68.43 [facility] [address] [address] 22 Oct, 2016 Acute midline low back pain with left-sided sciatica M54.42 [place] [address] [address] Oct, [place] [address] [address] 13 Oct, 2016 Chronic depression F32.9 ; B enign hypertension I10 ; Mixed hyperlipidemia E78.2 and Gout M10.9 [place] [address] [address] Sep, Chronic depression F32.9 ; B enign hypertension I10 ; Mixed hyperlipidemia E78.2 and Gout M10.9 [place] [address] [address] June, Chronic depression F32.9 ; G out M10.9 ; Benign hypertension I10 ; Obsessive-compulsive disorders F42.9 and Mixed hyperlipidemia E78.2 [place] [address] [address] May, Gout M10.9 ; Mixed hyperlipi demia E78.2 and Benign hypertension I10 [place] [address] [address] Apr, Chronic depression F32.9 ; G out M10.9 ; Benign hypertension I10 ; Obsessive-compulsive disorders F42.9 ; Abnormal results of thyroid function studies R94.6 and Mixed hyperlipidemia E78.2 [facility] [address] [facility] [id number] [address] [place] [phone] Apr, [facility] [address] [facility] [id number] [address] [place] [phone] Apr, [facility] [address] [facility] [id number] [address] [place] [phone] Jan, [facility] [address] [id number] [address] [place] [phone] Dec, [facility] [address] [facility] [id number] [address] [place] [phone] Oct, [facility] [address] [facility] [id number] [address] [place] [phone] Sep, Anxiety state, unspecified 3 00.00 and Major depressive disorder, single episode, mild 296.21 [facility] [address] [facility] [id number] [address] [place] [phone] Sep, [facility] [address] [facility] [id number] [address] [place] [phone] Aug, [facility] [address] [facility] [id number] [address] [place] [phone] Jul, [facility] [address] [facility] [id number] [address] [place] [phone] June, Anxiety state, unspecified 3 00.00 and Depressive disorder, not elsewhere classified 311 [facility] [address] [facility] [id number] [address] [place] [phone] June, [facility] [address] [facility] [id number] [address] [place] [address] June, Abnormal thyroid blood test 794.5 [facility] [address] [facility] [id number] [address] [place] [phone] May, [facility] [address] [id number] [address] [place] [address], [place] [address] 13 May, 2014 [facility] [address] [id number] [address] [place] [address], [place] [address] 24 Apr, 2014 [facility] [address] [id number] [address] [place] [address], [place] [address] 24 Apr, 2014 [facility] [address] [id number] [address] [place] [address], [place] [address] Apr, [facility] [address] [id number] [address] [place] [address], [place] [address] Apr, [facility] [address] [id number] [address] [place] [address], [place] [address] Apr, [facility] [address] [id number] [address] [place] [address], [place] [address] Apr, [facility] [address] [id number] [address] [place] [address], [place] [address] Apr, [facility] [address] [id number] [address] [place] [address], [place] [address] Apr, [facility] [address] [id number] [address] [place] [address], [place] [address] Apr, [facility] [address] [id number] [address] [place] [address], [place] [address] Apr, [facility] [address] [id number] [address] [place] [address], [place] [address] Apr, [facility] [address] [id number] [address] [place] [address], [place] [address] Apr, [facility] [address] [id number] [address] [place] [address], [place] [address] Apr, [facility] [address] [id number] [address] [place] [address], [place] [address] Apr, [facility] [address] [id number] [address] [place] [phone] Apr, [facility] [address] [id number] [address] [place] [phone] Apr, [facility] [address] [id number] [address] [place] [address] Mar, [facility] [address] [id number] [address] [place] [phone] Mar, [facility] [address] [id number] [address] [place] [phone] Mar, [facility] [address] [id number] [address] [place] [address] Mar, [facility] [address] [id number] [address] [place] [address] Mar, [facility] [address] [id number] [address] [place] [address] Mar, [facility] [address] [id number] [address] [place] [address] Mar, [facility] [address] [id number] [address] [place] [address] Mar, [facility] [address] [id number] [address] [place] [phone] Nov, [facility] [address] [id number] [address] [place] [address] Nov, [facility] [address] [id number] [address] [place] [phone] Nov, [facility] [address] [id number] [address] [place] [phone] Nov, [facility] [address] [id number] [address] [place] [address] Nov, IMMUNIZATIONS No Known Immunizations SOCIAL HISTORY Never Assessed REASON FOR VISIT PLAN OF CARE VITAL SIGNS Height 78 in 2014-05-23 Weight 278.6 lbs 2014-05-23 Temperature 97.3 degrees Fahrenheit 2014-05-23 Heart Rate 60 bpm 2014-05-23 Respiratory Rate 18 2014-05-23 Blood pressure systolic 110 mmHg 2014-05-23 Blood pressure diastolic 80 mmHg 2014-05-23 MEDICATIONS Unknown Medications RESULTS No Results PROCEDURES No Known procedures INSTRUCTIONS MEDICATIONS ADMINISTERED No Known Medications MEDICAL (GENERAL) HISTORY Type Description Date Medical History hypertension 2006 Medical History hyperlipidemia 2006 Medical History obesity Medical History chronic pain 2007 Medical History [id number] Medical History depression Medical History Bipolar disorder, unspecified Medical History Bipolar disorder, unspecified Medical History sleep apnea Surgical History Birthmark removed from right side of nos e Hospitalization History depression 03/2014 Hospitalization History depression 04/2014
--- OUTSIDE RECORDS SUMMARY | 2019-03-01 00:25 | XMS REPORT ---
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 Active 53807562 Problem Abnormal results of thyroid function studies R94.6 Active 710776146 Problem Mixed hyperlipidemia E78.2 Active 542339312 Problem Acute midline low back pain with left-sided sciatica M54.42 Active 677458704 Problem Lumbago with sciatica, right side M54.41 Active 959237153 Problem Gout M10.9 Active 50478040 Problem Other chronic pain G89.29 Active 8 4058803 Problem Benign hypertension I10 Active 73742205 Problem Acute left-sided low back pain with left-sided sciatica M54.42 Active 938890872 Problem Severe episode of recurrent major depressive disorder, without psychotic features F33.2 Active 13294772 Problem BELLA (generalized anxiety disorder) F41.1 Active 17095804 Problem Hypersomnolence G47.10 Active 7769 2006 ALLERGIES No Information ENCOUNTERS Encounter Location Date Diagnosis [facility] [address] [facility] [id number] [address] [place] [phone] Sep, [facility] [address] [facility] [id number] [address] [place] [id number] Aug, [facility] [address] [facility] [id number] [address] [place] [phone] Jul, BELLA (generalized anxiety dis order) F41.1 ; Severe episode of recurrent major depressive disorder, without psychotic features F33.2 and Morbid obesity E66.01 [facility] [address] [id number] [address] [place] [phone] Jul, BELLA (generalized anxiety dis order) F41.1 and Severe episode of recurrent major depressive disorder, without psychotic features F33.2 [facility] [address] [id number] [address] [place] [phone] June, BELLA (generalized anxiety dis order) F41.1 ; Severe episode of recurrent major depressive disorder, without psychotic features F33.2 and Morbid obesity E66.01 [facility] [address] [id number] [address] [place] [phone] June, Benign hypertension I10 [facility] [address] [id number] [address] [place] [phone] May, [facility] [address] [id number] [address] [place] [phone] May, BELLA (generalized anxiety dis order) F41.1 ; Severe episode of recurrent major depressive disorder, without psychotic features F33.2 and Morbid obesity E66.01 [facility] [address] [id number] [address] [place] [phone] Apr, [facility] [address] [id number] [address] [place] [phone] Mar, [facility] [address] [id number] [address] [place] [phone] Mar, Severe episode of recurrent major depressive disorder, without psychotic features F33.2 ; BELLA (generalized anxiety disorder) F41.1 and BMI 50.0-59.9, adult Z68.43 [facility] [address] [id number] [address] [place] [phone] Mar, [facility] [address] [id number] [address] [place] [phone] Mar, Benign hypertension I10 [facility] [address] [id number] [address] [place] [phone] Mar, [facility] [address] [id number] [address] [place] [phone] Mar, [facility] [address] [id number] [address] [place] [phone] Jan, [facility] [address] [id number] [address] [place] [id number] Jan, [facility] [address] [id number] [address] [place] [id number] Jan, Hypersomnolence G47.10 [facility] [address] [id number] [address] [place] [phone] Jan, Lumbago with sciatica, right side M54.41 ; Other chronic pain G89.29 and BMI 50.0-59.9, adult Z68.43 [facility] [address] [facility] [id number] [address] [place] [phone] Jan, [facility] [address] [id number] [address] [place] [phone] Dec, Severe episode of recurrent major depressive disorder, without psychotic features F33.2 ; BELLA (generalized anxiety disorder) F41.1 ; Hypersomnolence G47.10 and BMI 50.0-59.9, adult Z68.43 [facility] [address] [id number] [address] [place] [id number] Oct, [facility] [address] [facility] [id number] [address] [place] [phone] Sep, Severe episode of recurrent major depressive disorder, without psychotic features F33.2 ; BELLA (generalized anxiety disorder) F41.1 and BMI 50.0-59.9, adult Z68.43 [facility] [address] [id number] [address] [place] [phone] Sep, [facility] [address] [facility] [id number] [address] [place] [phone] Sep, Severe episode of recurrent major depressive disorder, without psychotic features F33.2 [place] [address] [address] Sep, Skin disorder L98.9 and BMI 50.0-59.9, adult Z68.43 [place] [address] [address] Sep, Benign hypertension I10 ; Ab scess L02.91 ; Gout M10.9 ; Mixed hyperlipidemia E78.2 and BMI 50.0-59.9, adult Z68.43 [place] [address] [address] Aug, Severe episode of recurrent major depressive disorder, without psychotic features F33.2 ; BELLA (generalized anxiety disorder) F41.1 and BMI 50.0-59.9, adult Z68.43 [place] [address] [address] Jul, BMI 50.0-59.9, adult Z68.43 ; BELLA (generalized anxiety disorder) F41.1 and Severe episode of recurrent major depressive disorder, without psychotic features F33.2 [place] [address] [address] June, [place] [address] [address] June, Blood in the stool K92.1 and BMI 50.0-59.9, adult Z68.43 [place] [address] [place] [id number] [place] [phone] May, [place] [address] [address] Apr, Chronic depression F32.9 ; B enign hypertension I10 ; Mixed hyperlipidemia E78.2 ; Gout M10.9 and BMI 50.0-59.9, adult Z68.43 [place] [address] [place] [id number] [place] [phone] Mar, Mixed hyperlipidemia E78.2 ; Benign hypertension I10 and Gout M10.9 [place] [address] [address] Mar, Mixed hyperlipidemia E78.2 ; Gout M10.9 and Benign hypertension I10 [facility] [address] [address] Jan, Acute left-sided low back pa in with left-sided sciatica M54.42 and BMI 50.0-59.9, adult Z68.43 [facility] [address] [id number] 22 Oct, 2016 Acute midline low back pain with left-sided sciatica M54.42 [place] [address] [address] Oct, [place] [address] [address] 13 Oct, 2016 Chronic depression F32.9 ; B enign hypertension I10 ; Mixed hyperlipidemia E78.2 and Gout M10.9 [place] [address] [address] Sep, Chronic depression F32.9 ; B enign hypertension I10 ; Mixed hyperlipidemia E78.2 and Gout M10.9 [place] [address] [address] June, Chronic depression F32.9 ; G out M10.9 ; Benign hypertension I10 ; Obsessive-compulsive disorders F42.9 and Mixed hyperlipidemia E78.2 [place] [address] [address] May, Gout M10.9 ; Mixed hyperlipi demia E78.2 and Benign hypertension I10 [place] [address] [address] Apr, Chronic depression F32.9 ; G out M10.9 ; Benign hypertension I10 ; Obsessive-compulsive disorders F42.9 ; Abnormal results of thyroid function studies R94.6 and Mixed hyperlipidemia E78.2 [facility] [address] [facility] [id number] [address] [place] [id number] Apr, [facility] [address] [facility] [id number] [address] [place] [phone] Apr, [facility] [address] [facility] [id number] [address] [place] [phone] Jan, [facility] [address] [id number] [address] [place] [phone] Dec, [facility] [address] [facility] [id number] [address] [place] [phone] Oct, [facility] [address] [facility] [id number] [address] [place] [address] Sep, Anxiety state, unspecified 3 00.00 and Major depressive disorder, single episode, mild 296.21 [facility] [address] [facility] [id number] [address] [place] [id number] Sep, [facility] [address] [facility] [id number] [address] [place] [id number] Aug, [facility] [address] [facility] [id number] [address] [place] [phone] Jul, [facility] [address] [facility] [id number] [address] [place] [phone] June, Anxiety state, unspecified 3 00.00 and Depressive disorder, not elsewhere classified 311 [facility] [address] [facility] [id number] [address] [place] [phone] June, [facility] [address] [facility] [id number] [address] [place] [phone] June, Abnormal thyroid blood test 794.5 [facility] [address] [facility] [id number] [address] [place] [phone] May, [facility] [address] [id number] [address] [place] [address], [place] [id number] 13 May, 2014 [facility] [address] [id number] [address] [place] [address], [place] [address] 24 Apr, 2014 [facility] [address] [id number] [address] [place] [address], [place] [id number] 24 Apr, 2014 [facility] [address] [id number] [address] [place] [address], [place] [address] Apr, [facility] [address] [id number] [address] [place] [address], [place] [address] Apr, [facility] [address] [id number] [address] [place] [address], [place] [address] Apr, [facility] [address] [id number] [address] [place] [address], [place] [address] Apr, [facility] [address] [id number] [address] [place] [address], [place] [address] Apr, [facility] [address] [id number] [address] [place] [address], [place] [address] Apr, [facility] [address] [id number] [address] [place] [address], [place] [address] Apr, [facility] [address] [id number] [address] [place] [address], [place] [address] Apr, [facility] [address] [id number] [address] [place] [address], [place] [address] Apr, [facility] [address] [id number] [address] [place] [address], [place] [address] Apr, [facility] [address] [id number] [address] [place] [address], [place] [address] Apr, [facility] [address] [id number] [address] [place] [address], [place] [address] Apr, [facility] [address] [id number] [address] [place] [phone] Apr, [facility] [address] [id number] [address] [place] [phone] Apr, [facility] [address] [id number] [address] [place] [phone] Mar, [facility] [address] [id number] [address] [place] [phone] Mar, [facility] [address] [id number] [address] [place] [phone] Mar, [facility] [address] [id number] [address] [place] [id number] Mar, [facility] [address] [id number] [address] [place] [phone] Mar, [facility] [address] [id number] [address] [place] [phone] Mar, [facility] [address] [id number] [address] [place] [phone] Mar, [facility] [address] [id number] [address] [place] [phone] Mar, [facility] [address] [id number] [address] [place] [phone] Nov, [facility] [address] [id number] [address] [place] [phone] Nov, [facility] [address] [id number] [address] [place] [phone] Nov, [facility] [address] [id number] [address] [place] [phone] Nov, [facility] [address] [id number] [address] [place] [phone] Nov, IMMUNIZATIONS No Known Immunizations SOCIAL HISTORY Never Assessed REASON FOR VISIT PLAN OF CARE VITAL SIGNS Height 78 in 2014-04-25 Weight 292.9 lbs 2014-04-25 Temperature 97.5 degrees Fahrenheit 2014-04-25 Heart Rate 78 bpm 2014-04-25 Respiratory Rate 18 2014-04-25 Blood pressure systolic 126 mmHg 2014-04-25 Blood pressure diastolic 80 mmHg 2014-04-25 MEDICATIONS Unknown Medications RESULTS No Results PROCEDURES Procedure Date Ordered Result Body Site PSYTX PT&/FAMILY 45 MINUTES Apr 25, 2014 INSTRUCTIONS MEDICATIONS ADMINISTERED No Known Medications MEDICAL (GENERAL) HISTORY Type Description Date Medical History hypertension 2006 Medical History hyperlipidemia 2006 Medical History obesity Medical History chronic pain 2007 Medical History [id number] Medical History depression Medical History Bipolar disorder, unspecified Medical History Bipolar disorder, unspecified Medical History sleep apnea Surgical History Birthmark removed from right side of nos e Hospitalization History depression 03/2014 Hospitalization History depression 04/2014
--- OUTSIDE RECORDS SUMMARY | 2019-03-01 00:25 | XMS REPORT ---
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 Active 40877984 Problem Abnormal results of thyroid function studies R94.6 Active 480943779 Problem Mixed hyperlipidemia E78.2 Active 472678525 Problem Acute midline low back pain with left-sided sciatica M54.42 Active 953782506 Problem Lumbago with sciatica, right side M54.41 Active 125288334 Problem Gout M10.9 Active 15671719 Problem Other chronic pain G89.29 Active 8 1389992 Problem Benign hypertension I10 Active 36864678 Problem Acute left-sided low back pain with left-sided sciatica M54.42 Active 471875386 Problem Severe episode of recurrent major depressive disorder, without psychotic features F33.2 Active 18424868 Problem BELLA (generalized anxiety disorder) F41.1 Active 06962478 Problem Hypersomnolence G47.10 Active 7769 2006 ALLERGIES No Information ENCOUNTERS Encounter Location Date Diagnosis [facility] [address] [facility] [id number] [address] [place] [phone] Sep, [facility] [address] [facility] [id number] [address] [place] [phone] Aug, [facility] [address] [facility] [id number] [address] [place] [phone] Jul, BELLA (generalized anxiety dis order) F41.1 ; Severe episode of recurrent major depressive disorder, without psychotic features F33.2 and Morbid obesity E66.01 [facility] [address] [id number] [address] [place] [phone] Jul, BELLA (generalized anxiety dis order) F41.1 and Severe episode of recurrent major depressive disorder, without psychotic features F33.2 [facility] [address] [id number] [address] [place] [phone] June, BELLA (generalized anxiety dis order) F41.1 ; Severe episode of recurrent major depressive disorder, without psychotic features F33.2 and Morbid obesity E66.01 [facility] [address] [id number] [address] [place] [phone] June, Benign hypertension I10 [facility] [address] [id number] [address] [place] [phone] May, [facility] [address] [id number] [address] [place] [phone] May, BELLA (generalized anxiety dis order) F41.1 ; Severe episode of recurrent major depressive disorder, without psychotic features F33.2 and Morbid obesity E66.01 [facility] [address] [id number] [address] [place] [phone] Apr, [facility] [address] [id number] [address] [place] [phone] Mar, [facility] [address] [id number] [address] [place] [phone] Mar, Severe episode of recurrent major depressive disorder, without psychotic features F33.2 ; BELLA (generalized anxiety disorder) F41.1 and BMI 50.0-59.9, adult Z68.43 [facility] [address] [id number] [address] [place] [phone] Mar, [facility] [address] [id number] [address] [place] [phone] Mar, Benign hypertension I10 [facility] [address] [facility] [id number] [address] [place] [phone] Mar, [facility] [address] [id number] [address] [place] [phone] Mar, [facility] [address] [id number] [address] [place] [phone] Jan, [facility] [address] [id number] [address] [place] [phone] Jan, [facility] [address] [id number] [address] [place] [phone] Jan, Hypersomnolence G47.10 [facility] [address] [id number] [address] [place] [phone] Jan, Lumbago with sciatica, right side M54.41 ; Other chronic pain G89.29 and BMI 50.0-59.9, adult Z68.43 [facility] [address] [facility] [id number] [address] [place] [phone] Jan, [facility] [address] [id number] [address] [place] [phone] Dec, Severe episode of recurrent major depressive disorder, without psychotic features F33.2 ; BELLA (generalized anxiety disorder) F41.1 ; Hypersomnolence G47.10 and BMI 50.0-59.9, adult Z68.43 [facility] [address] [facility] [id number] [address] [place] [phone] Oct, [facility] [address] [facility] [id number] [address] [place] [phone] Sep, Severe episode of recurrent major depressive disorder, without psychotic features F33.2 ; BELLA (generalized anxiety disorder) F41.1 and BMI 50.0-59.9, adult Z68.43 [facility] [address] [id number] [address] [place] [phone] Sep, [facility] [address] [facility] [id number] [address] [place] [phone] Sep, Severe episode of recurrent major depressive disorder, without psychotic features F33.2 [place] [address] [place] [id number] [address] [place] [phone] Sep, Skin disorder L98.9 and BMI 50.0-59.9, adult Z68.43 [place] [address] [place] [id number] [place] [phone] Sep, Benign hypertension I10 ; Ab scess L02.91 ; Gout M10.9 ; Mixed hyperlipidemia E78.2 and BMI 50.0-59.9, adult Z68.43 [place] [address] [place] [id number] [place] [phone] Aug, Severe episode of recurrent major depressive disorder, without psychotic features F33.2 ; BELLA (generalized anxiety disorder) F41.1 and BMI 50.0-59.9, adult Z68.43 [place] [address] [address] Jul, BMI 50.0-59.9, adult Z68.43 ; BELLA (generalized anxiety disorder) F41.1 and Severe episode of recurrent major depressive disorder, without psychotic features F33.2 [place] [address] [place] [id number] [place] [phone] June, [place] [address] [place] [id number] [place] [phone] June, Blood in the stool K92.1 and BMI 50.0-59.9, adult Z68.43 [place] [address] [place] [id number] [address] [place] [phone] May, [place] [address] [place] [id number] [place] [phone] Apr, Chronic depression F32.9 ; B enign hypertension I10 ; Mixed hyperlipidemia E78.2 ; Gout M10.9 and BMI 50.0-59.9, adult Z68.43 [place] [address] [place] [id number] [place] [phone] Mar, Mixed hyperlipidemia E78.2 ; Benign hypertension I10 and Gout M10.9 [place] [id number] [id number] Mar, Mixed hyperlipidemia E78.2 ; Gout M10.9 and Benign hypertension I10 [facility] [address] [phone] Jan, Acute left-sided low back pa in with left-sided sciatica M54.42 and BMI 50.0-59.9, adult Z68.43 [facility] [address] [id number] 22 Oct, 2016 Acute midline low back pain with left-sided sciatica M54.42 [place] [address] [id number] Oct, [place] [address] [id number] Oct, Chronic depression F32.9 ; B enign hypertension I10 ; Mixed hyperlipidemia E78.2 and Gout M10.9 [place] [address] [id number] Sep, Chronic depression F32.9 ; B enign hypertension I10 ; Mixed hyperlipidemia E78.2 and Gout M10.9 [place] [address] [address] June, Chronic depression F32.9 ; G out M10.9 ; Benign hypertension I10 ; Obsessive-compulsive disorders F42.9 and Mixed hyperlipidemia E78.2 [place] [address] [phone] May, Gout M10.9 ; Mixed hyperlipi demia E78.2 and Benign hypertension I10 [place] [address] [id number] Apr, Chronic depression F32.9 ; G out M10.9 ; Benign hypertension I10 ; Obsessive-compulsive disorders F42.9 ; Abnormal results of thyroid function studies R94.6 and Mixed hyperlipidemia E78.2 [facility] [address] [facility] [id number] [address] [place] [phone] Apr, [facility] [address] [facility] [id number] [address] [place] [phone] Apr, [facility] [address] [facility] [id number] [address] [place] [phone] Jan, [facility] [address] [facility] [id number] [address] [place] [phone] Dec, [facility] [address] [facility] [id number] [address] [place] [phone] Oct, [facility] [address] [facility] [id number] [address] [place] [phone] Sep, Anxiety state, unspecified 3 00.00 and Major depressive disorder, single episode, mild 296.21 [facility] [address] [facility] [id number] [address] [place] [phone] Sep, [facility] [address] [facility] [id number] [address] [place] [phone] Aug, [facility] [address] [facility] [id number] [address] [place] [phone] Jul, [facility] [address] [facility] [id number] [address] [place] [phone] June, Anxiety state, unspecified 3 00.00 and Depressive disorder, not elsewhere classified 311 [facility] [address] [facility] [id number] [address] [place] [phone] June, [facility] [address] [facility] [id number] [address] [place] [phone] June, Abnormal thyroid blood test 794.5 [facility] [address] [facility] [id number] [address] [place] [phone] May, [facility] [address] [id number] [address] [place] [address], [place] [address] 13 May, 2014 [facility] [address] [id number] [address] [place] [address], [place] [address] 24 Apr, 2014 [facility] [address] [id number] [address] [place] [address], [place] [address] 24 Apr, 2014 [facility] [address] [id number] [address] [place] [address], [place] [address] Apr, [facility] [address] [id number] [address] [place] [address], [place] [address] Apr, [facility] [address] [id number] [address] [place] [address], [place] [address] Apr, [facility] [address] [id number] [address] [place] [address], [place] [address] Apr, [facility] [address] [id number] [address] [place] [address], [place] [address] Apr, [facility] [address] [id number] [address] [place] [address], [place] [address] Apr, [facility] [address] [id number] [address] [place] [address], [place] [address] Apr, [facility] [address] [id number] [address] [place] [address], [place] [address] Apr, [facility] [address] [id number] [address] [place] [phone] Apr, [facility] [address] [id number] [address] [place] [address], [place] [address] Apr, [facility] [address] [id number] [address] [place] [address], [place] [address] Apr, [facility] [address] [id number] [address] [place] [address], [place] [address] Apr, [facility] [address] [id number] [address] [place] [phone] Apr, [facility] [address] [id number] [address] [place] [phone] Apr, [facility] [address] [id number] [address] [place] [phone] Mar, [facility] [address] [id number] [address] [place] [id number] Mar, [facility] [address] [id number] [address] [place] [phone] Mar, [facility] [address] [id number] [address] [place] [phone] Mar, [facility] [address] [id number] [address] [place] [phone] Mar, [facility] [address] [id number] [address] [place] [phone] Mar, [facility] [address] [id number] [address] [place] [phone] Mar, [facility] [address] [id number] [address] [place] [phone] Mar, [facility] [address] [id number] [address] [place] [phone] Nov, [facility] [address] [id number] [address] [place] [phone] Nov, [facility] [address] [id number] [address] [place] [phone] Nov, [facility] [address] [id number] [address] [place] [phone] Nov, [facility] [address] [id number] [address] [place] [phone] Nov, IMMUNIZATIONS No Known Immunizations SOCIAL HISTORY Never Assessed REASON FOR VISIT PLAN OF CARE VITAL SIGNS MEDICATIONS Unknown Medications RESULTS No Results PROCEDURES No Known procedures INSTRUCTIONS MEDICATIONS ADMINISTERED No Known Medications MEDICAL (GENERAL) HISTORY Type Description Date Medical History hypertension 2007 Medical History hyperlipidemia 2006 Medical History obesity Medical History chronic pain 2007 Medical History [id number] Medical History depression Medical History Bipolar disorder, unspecified Medical History Bipolar disorder, unspecified Medical History sleep apnea Surgical History Birthmark removed from right side of nos e Hospitalization History depression 03/2014 Hospitalization History depression 04/2014
--- OUTSIDE RECORDS SUMMARY | 2019-03-01 00:25 | XMS REPORT ---
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 Active 52260947 Problem Gout M10.9 Active 44304098 Problem Benign hypertension I10 Active 88828171 Problem Chronic depression F32.9 Active 1 34787561 Problem Obsessive-compulsive disorders F42.9 Active 223816704 Problem BELLA (generalized anxiety disorder) F41.1 Active 07489923 Problem Severe episode of recurrent major depressive disorder, without psychotic features F33.2 Active 93874632 Problem Mixed hyperlipidemia E78.2 Active 027956072 Problem Abnormal results of thyroid function studies R94.6 Active 070515173 Problem Acute left-sided low back pain with left-sided sciatica M54.42 Active 597891071 Problem Acute midline low back pain with left-sided sciatica M54.42 Active 358960366 ALLERGIES Substance Reaction Event Type Date Status Azithromycin nausea Drug Allergy Sep, Active ENCOUNTERS Encounter Location Date Diagnosis [facility] [address] [facility] [id number] [address] [place] [phone] Oct, [facility] [address] [place] [id number] [address] [place] [id number] Sep, Severe episode of recurrent major depressive disorder, without psychotic features F33.2 ; BELLA (generalized anxiety disorder) F41.1 and BMI 50.0-59.9, adult Z68.43 [facility] [address] [facility] [id number] [address] [place] [phone] Sep, [facility] [address] [facility] [id number] [address] [place] [address] Sep, Severe episode of recurrent major depressive disorder, without psychotic features F33.2 [place] [address] [address] Sep, Skin disorder L98.9 and BMI 50.0-59.9, adult Z68.43 [place] [address] [address] Sep, Benign hypertension I10 ; Ab scess L02.91 ; Gout M10.9 ; Mixed hyperlipidemia E78.2 and BMI 50.0-59.9, adult Z68.43 [place] [address] [address] Aug, Severe episode of recurrent major depressive disorder, without psychotic features F33.2 ; BELLA (generalized anxiety disorder) F41.1 and BMI 50.0-59.9, adult Z68.43 [place] [address] [address] Jul, BMI 50.0-59.9, adult Z68.43 ; BELLA (generalized anxiety disorder) F41.1 and Severe episode of recurrent major depressive disorder, without psychotic features F33.2 [place] [address] [address] June, [place] [address] [address] June, Blood in the stool K92.1 and BMI 50.0-59.9, adult Z68.43 [place] [address] [place] [id number] [address] [place] [phone] May, [place] [address] [address] Apr, Chronic depression F32.9 ; B enign hypertension I10 ; Mixed hyperlipidemia E78.2 ; Gout M10.9 and BMI 50.0-59.9, adult Z68.43 [place] [address] [address] Mar, Mixed hyperlipidemia E78.2 ; Benign hypertension I10 and Gout M10.9 [place] [address] [address] Mar, Mixed hyperlipidemia E78.2 ; Gout M10.9 and Benign hypertension I10 [facility] [address] [address] Jan, Acute left-sided low back pa in with left-sided sciatica M54.42 and BMI 50.0-59.9, adult Z68.43 [facility] [address] [address] Oct, Acute midline low back pain with left-sided sciatica M54.42 [place] [address] [address] Oct, [place] [address] [address] Oct, Chronic depression F32.9 ; B enign hypertension I10 ; Mixed hyperlipidemia E78.2 and Gout M10.9 [place] [address] [address] Sep, Chronic depression F32.9 ; B enign hypertension I10 ; Mixed hyperlipidemia E78.2 and Gout M10.9 [place] [address] [address] June, Chronic depression F32.9 ; G out M10.9 ; Benign hypertension I10 ; Obsessive-compulsive disorders F42.9 and Mixed hyperlipidemia E78.2 [place] [address] [address] May, Gout M10.9 ; Mixed hyperlipi demia E78.2 and Benign hypertension I10 [place] [address] [address] Apr, Chronic depression F32.9 ; G out M10.9 ; Benign hypertension I10 ; Obsessive-compulsive disorders F42.9 ; Abnormal results of thyroid function studies R94.6 and Mixed hyperlipidemia E78.2 [facility] [address] [place] [id number] [address] [place] [phone] Apr, [facility] [address] [facility] [id number] [address] [place] [phone] Apr, [facility] [address] [place] [id number] [address] [place] [phone] Jan, [facility] [address] [place] [id number] [address] [place] [phone] Dec, [facility] [address] [place] [id number] [address] [place] [phone] Oct, [facility] [address] [place] [id number] [address] [place] [phone] Sep, Anxiety state, unspecified 3 00.00 and Major depressive disorder, single episode, mild 296.21 [facility] [address] [place] [id number] [address] [place] [phone] Sep, [facility] [address] [place] [id number] [address] [place] [phone] Aug, [facility] [address] [place] [id number] [address] [place] [id number] Jul, [facility] [address] [place] [id number] [address] [place] [phone] June, Anxiety state, unspecified 3 00.00 and Depressive disorder, not elsewhere classified 311 [facility] [address] [facility] [id number] [address] [place] [phone] June, [facility] [address] [place] [id number] [address] [place] [phone] June, Abnormal thyroid blood test 794.5 [facility] [address] [facility] [id number] [address] [place] [phone] May, [facility] [address] [id number] [address] [place] [address], [place] [address] 13 May, 2014 [facility] [address] [id number] [address] [place] [address], [place] [id number] 24 Apr, 2014 [facility] [address] [id number] [address] [place] [address], [place] [id number] 24 Apr, 2014 [facility] [address] [id number] [address] [place] [address], [place] [address] Apr, [facility] [address] [id number] [address] [place] [address], [place] [address] 23 Apr, 2014 [facility] [address] [id number] [address] [place] [address], [place] [address] Apr, [facility] [address] [id number] [address] [place] [address], [place] [address] Apr, [facility] [address] [id number] [address] [place] [address], [place] [address] Apr, [facility] [address] [id number] [address] [place] [address], [place] [address] Apr, [facility] [address] [id number] [address] [place] [address], [place] [address] Apr, [facility] [address] [id number] [address] [place] [address], [place] [address] Apr, [facility] [address] [id number] [address] [place] [address], [place] [address] Apr, [facility] [address] [id number] [address] [place] [address], [place] [address] Apr, [facility] [address] [id number] [address] [place] [address], [place] [address] Apr, [facility] [address] [id number] [address] [place] [address], [place] [address] Apr, [facility] [address] [id number] [address] [place] [phone] Apr, [facility] [address] [id number] [address] [place] [phone] Apr, [facility] [address] [id number] [address] [place] [phone] Mar, [facility] [address] [id number] [address] [place] [phone] Mar, [facility] [address] [id number] [address] [place] [phone] Mar, [facility] [address] [id number] [address] [place] [phone] Mar, [facility] [address] [id number] [address] [place] [phone] Mar, [facility] [address] [id number] [address] [place] [phone] Mar, [facility] [address] [id number] [address] [place] [phone] Mar, [facility] [address] [id number] [address] [place] [phone] Mar, [facility] [address] [id number] [address] [place] [phone] Nov, [facility] [address] [id number] [address] [place] [phone] Nov, [facility] [address] [id number] [address] [place] [phone] Nov, [facility] [address] [id number] [address] [place] [phone] Nov, [facility] [address] [id number] [address] [place] [phone] Nov, IMMUNIZATIONS No Known Immunizations SOCIAL HISTORY Never Assessed REASON FOR VISIT f/vernon Fagan MA PLAN OF CARE Activity Details Follow Up January Reason: VITAL SIGNS Height 78 in 2017-10-29 Weight 435.2 lbs 2017-10-29 Heart Rate 123 bpm 2017-10-29 Respiratory Rate 20 2017-10-29 Oximetry 96 % 2017-10-29 BMI 50.29 kg/m2 2017-10-29 Blood pressure systolic 133 mmHg 2017-10-29 Blood pressure diastolic 80 mmHg 2017-10-29 MEDICATIONS Medication Instructions Dosage Frequency Start Date End Date Duration S tatus Lisinopril 20 mg Orally Once a day take tablet by Oral route 1 time per day 24h Active Wellbutrin XL 300 MG Orally Once a day 1 tablet in the morning 24h Aug, 30 days Active Paxil 40 MG Orally Once a day 1 tablet 24h 30 days A ctive Atorvastatin Calcium 80MG TAKE ONE-HALF TABLET BY MOUTH ONCE BETZY LY Active Allopurinol 300MG Orally Once a day-appt needed for additional r efills 1 tablet Active Aleve 220 MG Orally every 12 hrs 1 capsule with food or milk as needed 12h Active Zyrtec Allergy 10 MG Orally Once a day 1 tablet 24h Active Tylenol 1 tab Active RESULTS No Results PROCEDURES No Known procedures INSTRUCTIONS MEDICATIONS ADMINISTERED No Known Medications MEDICAL (GENERAL) HISTORY Type Description Date Medical History hypertension 2006 Medical History hyperlipidemia 2006 Medical History obesity Medical History chronic pain 2007 Medical History [id number] Medical History depression Medical History Bipolar disorder, unspecified Medical History Bipolar disorder, unspecified Surgical History Birthmark removed from right side of nos e Hospitalization History depression 03/2014 Hospitalization History depression 04/2014
--- OUTSIDE RECORDS SUMMARY | 2019-03-01 00:25 | XMS REPORT ---
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 Active 90224613 Problem Abnormal results of thyroid function studies R94.6 Active 114044101 Problem Mixed hyperlipidemia E78.2 Active 125544621 Problem Acute midline low back pain with left-sided sciatica M54.42 Active 052037046 Problem Lumbago with sciatica, right side M54.41 Active 612173201 Problem Gout M10.9 Active 47005526 Problem Other chronic pain G89.29 Active 8 0658871 Problem Benign hypertension I10 Active 99817261 Problem Acute left-sided low back pain with left-sided sciatica M54.42 Active 760171095 Problem Severe episode of recurrent major depressive disorder, without psychotic features F33.2 Active 09449136 Problem BELLA (generalized anxiety disorder) F41.1 Active 95715316 Problem Hypersomnolence G47.10 Active 7769 2006 ALLERGIES No Information ENCOUNTERS Encounter Location Date Diagnosis [facility] [address] [facility] [id number] [address] [place] [phone] June, [facility] [address] [facility] [id number] [address] [place] [address] June, Benign hypertension I10 [facility] [address] [facility] [id number] [address] [place] [phone] May, [facility] [address] [facility] [id number] [address] [place] [phone] May, BELLA (generalized anxiety dis order) F41.1 ; Severe episode of recurrent major depressive disorder, without psychotic features F33.2 and Morbid obesity E66.01 [facility] [address] [id number] [address] [place] [phone] Apr, [facility] [address] [facility] [id number] [address] [place] [phone] Mar, [facility] [address] [facility] [id number] [address] [place] [address] Mar, Severe episode of recurrent major depressive disorder, without psychotic features F33.2 ; BELLA (generalized anxiety disorder) F41.1 and BMI 50.0-59.9, adult Z68.43 [facility] [address] [facility] [id number] [address] [place] [phone] Mar, [facility] [address] [facility] [id number] [address] [place] [phone] Mar, Benign hypertension I10 [facility] [address] [facility] [id number] [address] [place] [phone] Mar, [facility] [address] [id number] [address] [place] [phone] Mar, [facility] [address] [facility] [id number] [address] [place] [phone] Jan, [facility] [address] [facility] [id number] [address] [place] [address] Jan, [facility] [address] [facility] [id number] [address] [place] [address] Jan, Hypersomnolence G47.10 [facility] [address] [facility] [id number] [address] [place] [address] Jan, Lumbago with sciatica, right side M54.41 ; Other chronic pain G89.29 and BMI 50.0-59.9, adult Z68.43 [facility] [address] [facility] [id number] [address] [place] [phone] Jan, [facility] [address] [place] [id number] [place] [phone] Dec, Severe episode of recurrent major depressive disorder, without psychotic features F33.2 ; BELLA (generalized anxiety disorder) F41.1 ; Hypersomnolence G47.10 and BMI 50.0-59.9, adult Z68.43 [place] [address] [place] [id number] [address] [place] [phone] Oct, [place] [address] [place] [id number] [place] [phone] Sep, Severe episode of recurrent major depressive disorder, without psychotic features F33.2 ; BELLA (generalized anxiety disorder) F41.1 and BMI 50.0-59.9, adult Z68.43 [place] [address] [place] [id number] [place] [phone] Sep, [place] [address] [address] Sep, Severe episode of recurrent major depressive disorder, without psychotic features F33.2 [place] [address] [place] [id number] [place] [address] Sep, Skin disorder L98.9 and BMI 50.0-59.9, adult Z68.43 [place] [address] [place] [id number] [place] [phone] Sep, Benign hypertension I10 ; Ab scess L02.91 ; Gout M10.9 ; Mixed hyperlipidemia E78.2 and BMI 50.0-59.9, adult Z68.43 [place] [address] [place] [id number] [place] [address] Aug, Severe episode of recurrent major depressive disorder, without psychotic features F33.2 ; BELLA (generalized anxiety disorder) F41.1 and BMI 50.0-59.9, adult Z68.43 [place] [address] [place] [id number] [place] [address] Jul, BMI 50.0-59.9, adult Z68.43 ; BELLA (generalized anxiety disorder) F41.1 and Severe episode of recurrent major depressive disorder, without psychotic features F33.2 [place] [address] [address] June, [place] [address] [place] [id number] [place] [phone] June, Blood in the stool K92.1 and BMI 50.0-59.9, adult Z68.43 [place] [address] [place] [id number] [place] [address] May, [place] [address] [address] Apr, Chronic depression F32.9 ; B enign hypertension I10 ; Mixed hyperlipidemia E78.2 ; Gout M10.9 and BMI 50.0-59.9, adult Z68.43 [place] [address] [address] Mar, Mixed hyperlipidemia E78.2 ; Benign hypertension I10 and Gout M10.9 [place] [address] [address] Mar, Mixed hyperlipidemia E78.2 ; Gout M10.9 and Benign hypertension I10 [facility] [address] [place] [id number] [place] [address] Jan, Acute left-sided low back pa in with left-sided sciatica M54.42 and BMI 50.0-59.9, adult Z68.43 [facility] [address] [place] [id number] [address] [place] [address] Oct, Acute midline low back pain with left-sided sciatica M54.42 [facility] [address] [place] [id number] [address] [place] [address] 20 Oct, 2016 [place] [address] [place] [id number] [place] [phone] 13 Oct, 2016 Chronic depression F32.9 ; B enign hypertension I10 ; Mixed hyperlipidemia E78.2 and Gout M10.9 [place] [address] [address] Sep, Chronic depression F32.9 ; B enign hypertension I10 ; Mixed hyperlipidemia E78.2 and Gout M10.9 [place] [address] [address] June, Chronic depression F32.9 ; G out M10.9 ; Benign hypertension I10 ; Obsessive-compulsive disorders F42.9 and Mixed hyperlipidemia E78.2 [place] [address] [address] May, Gout M10.9 ; Mixed hyperlipi demia E78.2 and Benign hypertension I10 [place] [address] [address] Apr, Chronic depression F32.9 ; G out M10.9 ; Benign hypertension I10 ; Obsessive-compulsive disorders F42.9 ; Abnormal results of thyroid function studies R94.6 and Mixed hyperlipidemia E78.2 [place] [address] [address] Apr, [place] [address] [address] Apr, [place] [address] [address] Jan, [place] [address] [address] Dec, [place] [address] [address] Oct, [place] [address] [address] Sep, Anxiety state, unspecified 3 00.00 and Major depressive disorder, single episode, mild 296.21 [place] [address] [place] [id number] [place] [address] Sep, [facility] [address] [id number] [address] [place] [address] Aug, [facility] [address] [id number] [address] [place] [address] Jul, [facility] [address] [id number] [address] [place] [address] June, Anxiety state, unspecified 3 00.00 and Depressive disorder, not elsewhere classified 311 [facility] [address] [id number] [address] [place] [address] June, [facility] [address] [id number] [address] [place] [address] June, Abnormal thyroid blood test 794.5 [facility] [address] [id number] [address] [place] [phone] May, [facility] [address] [id number] [address] [place] [address] May, [facility] [address] [id number] [address] [place] [address] Apr, [facility] [address] [id number] [address] [place] [address] Apr, [facility] [address] [id number] [address] [place] [address] Apr, [facility] [address] [id number] [address] [place] [phone] Apr, [facility] [address] [id number] [address] [place] [phone] Apr, [facility] [address] [id number] [address] [place] [address] Apr, [facility] [address] [id number] [address] [place] [address] Apr, [facility] [address] [id number] [address] [place] [address], [place] [address] Apr, [facility] [address] [id number] [address] [place] [address], [place] [address] Apr, [facility] [address] [id number] [address] [place] [address], [place] [address] Apr, [facility] [address] [id number] [address] [place] [address], [place] [address] Apr, [facility] [address] [id number] [address] [place] [address], [place] [address] Apr, [facility] [address] [id number] [address] [place] [address], [place] [address] Apr, [facility] [address] [id number] [address] [place] [address], [place] [address] Apr, [facility] [address] [id number] [address] [place] [address], [place] [address] Apr, [facility] [address] [id number] [address] [place] [address], [place] [address] Apr, [facility] [address] [id number] [address] [place] [address], [place] [address] Mar, [facility] [address] [id number] [address] [place] [address], [place] [address] Mar, [facility] [address] [id number] [address] [place] [address] Mar, [facility] [address] [id number] [address] [place] [address], [place] [address] Mar, [facility] [address] [id number] [address] [place] [address], [place] [address] Mar, [facility] [address] [id number] [address] [place] [address], [place] [address] Mar, [facility] [address] [id number] [address] [place] [address] Mar, [facility] [address] [facility] [id number] [address] [place] [phone] Mar, [facility] [address] [facility] [id number] [address] [place] [address] Nov, [facility] [address] [facility] [id number] [address] [place] [address] Nov, [facility] [address] [facility] [id number] [address] [place] [address] Nov, [facility] [address] [facility] [id number] [address] [place] [phone] Nov, [facility] [address] [facility] [id number] [address] [place] [phone] Nov, IMMUNIZATIONS No Known Immunizations SOCIAL HISTORY Never Assessed REASON FOR VISIT [facility] [place] VITAL SIGNS MEDICATIONS Unknown Medications RESULTS No Results PROCEDURES No Known procedures INSTRUCTIONS MEDICATIONS ADMINISTERED No Known Medications MEDICAL (GENERAL) HISTORY Type Description Date Medical History hypertension 2007 Medical History hyperlipidemia 2006 Medical History obesity Medical History chronic pain 2007 Medical History [id number] Medical History depression Medical History Bipolar disorder, unspecified Medical History Bipolar disorder, unspecified Medical History sleep apnea Surgical History Birthmark removed from right side of nos e Hospitalization History depression 03/2014 Hospitalization History depression 04/2014
--- OUTSIDE RECORDS SUMMARY | 2019-03-01 00:25 | XMS REPORT ---
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 Active 73266836 Problem Gout M10.9 Active 77364894 Problem Benign hypertension I10 Active 93936716 Problem Chronic depression F32.9 Active 1 86769319 Problem Obsessive-compulsive disorders F42.9 Active 592118101 Problem BELLA (generalized anxiety disorder) F41.1 Active 38410255 Problem Severe episode of recurrent major depressive disorder, without psychotic features F33.2 Active 01723016 Problem Mixed hyperlipidemia E78.2 Active 724800535 Problem Abnormal results of thyroid function studies R94.6 Active 107778799 Problem Acute left-sided low back pain with left-sided sciatica M54.42 Active 723084166 Problem Acute midline low back pain with left-sided sciatica M54.42 Active 661951439 ALLERGIES No Information ENCOUNTERS Encounter Location Date Diagnosis [place] [id number] [facility] [id number] [address] [place] [phone] Oct, [place] [address] [place] [id number] [address] [place] [phone] Sep, Severe episode of recurrent major depressive disorder, without psychotic features F33.2 ; BELLA (generalized anxiety disorder) F41.1 and BMI 50.0-59.9, adult Z68.43 [facility] [address] [place] [id number] [address] [place] [phone] Sep, [facility] [address] [facility] [id number] [address] [place] [phone] Sep, Severe episode of recurrent major depressive disorder, without psychotic features F33.2 [place] [address] [place] [id number] [place] [address] Sep, Skin disorder L98.9 and BMI 50.0-59.9, adult Z68.43 [place] [address] [place] [id number] [place] [phone] Sep, Benign hypertension I10 ; Ab scess L02.91 ; Gout M10.9 ; Mixed hyperlipidemia E78.2 and BMI 50.0-59.9, adult Z68.43 [place] [address] [address] Aug, Severe episode of recurrent major depressive disorder, without psychotic features F33.2 ; BELLA (generalized anxiety disorder) F41.1 and BMI 50.0-59.9, adult Z68.43 [place] [address] [address] Jul, BMI 50.0-59.9, adult Z68.43 ; BELLA (generalized anxiety disorder) F41.1 and Severe episode of recurrent major depressive disorder, without psychotic features F33.2 [place] [address] [address] June, [place] [address] [place] [id number] [place] [phone] June, Blood in the stool K92.1 and BMI 50.0-59.9, adult Z68.43 [place] [address] [place] [id number] [place] [phone] May, [place] [address] [place] [id number] [place] [address] Apr, Chronic depression F32.9 ; B enign hypertension I10 ; Mixed hyperlipidemia E78.2 ; Gout M10.9 and BMI 50.0-59.9, adult Z68.43 [place] [address] [place] [id number] [place] [phone] Mar, Mixed hyperlipidemia E78.2 ; Benign hypertension I10 and Gout M10.9 [facility] [id number] [place] [address] Mar, Mixed hyperlipidemia E78.2 ; Gout M10.9 and Benign hypertension I10 [facility] [address] [place] [id number] [address] [place] [phone] Jan, Acute left-sided low back pa in with left-sided sciatica M54.42 and BMI 50.0-59.9, adult Z68.43 [facility] [address] [place] [id number] [place] [phone] 22 Oct, 2016 Acute midline low back pain with left-sided sciatica M54.42 [place] [address] [place] [id number] [place] [phone] 20 Oct, 2016 [place] [address] [address] 13 Oct, 2016 Chronic depression F32.9 ; B enign hypertension I10 ; Mixed hyperlipidemia E78.2 and Gout M10.9 [place] [address] [address] Sep, Chronic depression F32.9 ; B enign hypertension I10 ; Mixed hyperlipidemia E78.2 and Gout M10.9 [place] [address] [address] June, Chronic depression F32.9 ; G out M10.9 ; Benign hypertension I10 ; Obsessive-compulsive disorders F42.9 and Mixed hyperlipidemia E78.2 [place] [address] [place] [id number] [address] [place] [phone] May, Gout M10.9 ; Mixed hyperlipi demia E78.2 and Benign hypertension I10 [place] [address] [place] [id number] [address] [place] [address] Apr, Chronic depression F32.9 ; G out M10.9 ; Benign hypertension I10 ; Obsessive-compulsive disorders F42.9 ; Abnormal results of thyroid function studies R94.6 and Mixed hyperlipidemia E78.2 [facility] [address] [facility] [id number] [address] [place] [address] Apr, [facility] [address] [id number] [address] [place] [phone] Apr, [facility] [address] [id number] [address] [place] [phone] Jan, [facility] [address] [id number] [address] [place] [phone] Dec, [facility] [address] [facility] [id number] [address] [place] [phone] Oct, [facility] [address] [facility] [id number] [address] [place] [address] Sep, Anxiety state, unspecified 3 00.00 and Major depressive disorder, single episode, mild 296.21 [facility] [address] [id number] [address] [place] [address] Sep, [facility] [address] [facility] [id number] [address] [place] [phone] Aug, [facility] [address] [facility] [id number] [address] [place] [address] Jul, [facility] [address] [facility] [id number] [address] [place] [address] June, Anxiety state, unspecified 3 00.00 and Depressive disorder, not elsewhere classified 311 [facility] [address] [id number] [address] [place] [phone] June, [facility] [address] [facility] [id number] [address] [place] [address] June, Abnormal thyroid blood test 794.5 [facility] [address] [facility] [id number] [address] [place] [phone] May, [facility] [address] [id number] [address] [place] [address], [place] [address] 13 May, 2014 [facility] [address] [id number] [address] [place] [address], [place] [id number] 24 Apr, 2014 [facility] [address] [id number] [address] [place] [address], [place] [id number] 24 Apr, 2014 [facility] [address] [id number] [address] [place] [address], [place] [id number] 23 Apr, 2014 [facility] [address] [id number] [address] [place] [address], [place] [id number] 23 Apr, 2014 [facility] [address] [id number] [address] [place] [address], [place] [address] Apr, [facility] [address] [id number] [address] [place] [address], [place] [phone] Apr, [facility] [address] [id number] [address] [place] [address], [place] [id number] 17 Apr, 2014 [facility] [address] [id number] [address] [place] [address], [place] [id number] 17 Apr, 2014 [facility] [address] [id number] [address] [place] [address], [place] [id number] 24 Apr, 2014 [facility] [address] [id number] [address] [place] [address], [place] [id number] 24 Apr, 2014 [facility] [address] [id number] [address] [place] [address], [place] [id number] 24 Apr, 2014 [facility] [address] [id number] [address] [place] [address], [place] [id number] 24 Apr, 2014 [facility] [address] [id number] [address] [place] [address], [place] [id number] 04 Apr, 2014 [facility] [address] [id number] [address] [place] [address], [place] [id number] 04 Apr, 2014 [facility] [address] [id number] [address] [place] [address], [place] [address] Apr, [facility] [address] [id number] [address] [place] [phone] Apr, [facility] [address] [id number] [address] [place] [phone] Mar, [facility] [address] [id number] [address] [place] [phone] Mar, [facility] [address] [id number] [address] [place] [address] Mar, [facility] [address] [id number] [address] [place] [phone] Mar, [facility] [address] [id number] [address] [place] [phone] Mar, [facility] [address] [id number] [address] [place] [phone] Mar, [facility] [address] [id number] [address] [place] [phone] Mar, [facility] [address] [id number] [address] [place] [phone] Mar, [facility] [address] [id number] [address] [place] [phone] Nov, [facility] [address] [id number] [address] [place] [phone] Nov, [facility] [address] [id number] [address] [place] [phone] Nov, [facility] [address] [id number] [address] [place] [phone] Nov, [facility] [address] [id number] [address] [place] [phone] Nov, IMMUNIZATIONS No Known Immunizations SOCIAL HISTORY Never Assessed REASON FOR VISIT Requests return call PLAN OF CARE VITAL SIGNS MEDICATIONS Unknown Medications RESULTS No Results PROCEDURES No Known procedures INSTRUCTIONS MEDICATIONS ADMINISTERED No Known Medications MEDICAL (GENERAL) HISTORY Type Description Date Medical History hypertension 2006 Medical History hyperlipidemia 2007 Medical History obesity Medical History chronic pain 2007 Medical History [id number] Medical History depression Medical History Bipolar disorder, unspecified Medical History Bipolar disorder, unspecified Surgical History Birthmark removed from right side of nos e Hospitalization History depression 03/2014 Hospitalization History depression 04/2014
--- OUTSIDE RECORDS SUMMARY | 2019-03-01 00:25 | XMS REPORT ---
Author Author Mansoor AL Organization 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 Name Role Phone GRACE AL Unavailable PROBLEMS Type Condition ICD9-CM Code TQZ95-DI Code Onset Dates Condition S tatus SNOMED Code Problem Abnormal results of thyroid function studies R94.6 Active 511214396 Problem Acute midline low back pain with left-sided sciatica M54.42 Active 748727165 Problem Mixed hyperlipidemia E78.2 Active 458183682 Problem Other chronic pain G89.29 Active 8 6236977 Problem Lumbago with sciatica, right side M54.41 Active 305303430 Problem BELLA (generalized anxiety disorder) F41.1 Active 40650735 Problem Acute left-sided low back pain with left-sided sciatica M54.42 Active 414022978 Problem Hypersomnolence G47.10 Active 7769 2006 Problem Severe episode of recurrent major depressive disorder, without psychotic features F33.2 Active 05236270 Problem 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 [address] [facility] [id number] [address] [place] [phone] Mar, [facility] [address] [facility] [id number] [address] [place] [phone] Jan, Hypersomnolence G47.10 [facility] [address] [facility] [id number] [address] [place] [phone] Jan, Lumbago with sciatica, right side M54.41 and Other chronic pain G89.29 [place] [address] [address] Jan, [place] [address] [address] Dec, Severe episode of recurrent major depressive disorder, without psychotic features F33.2 ; BELLA (generalized anxiety disorder) F41.1 ; Hypersomnolence G47.10 and BMI 50.0-59.9, adult Z68.43 [place] [address] [address] Oct, [place] [address] [address] Sep, Severe episode of recurrent major depressive disorder, without psychotic features F33.2 ; BELLA (generalized anxiety disorder) F41.1 and BMI 50.0-59.9, adult Z68.43 [place] [address] [address] Sep, [place] [address] [address] Sep, Severe episode of recurrent major depressive disorder, without psychotic features F33.2 [place] [address] [address] Sep, Skin disorder L98.9 and BMI 50.0-59.9, adult Z68.43 [place] [address] [address] Sep, Benign hypertension I10 ; Ab scess L02.91 ; Gout M10.9 ; Mixed hyperlipidemia E78.2 and BMI 50.0-59.9, adult Z68.43 [place] [address] [address] Aug, Severe episode of recurrent major depressive disorder, without psychotic features F33.2 ; BELLA (generalized anxiety disorder) F41.1 and BMI 50.0-59.9, adult Z68.43 [place] [address] [address] Jul, BMI 50.0-59.9, adult Z68.43 ; BELLA (generalized anxiety disorder) F41.1 and Severe episode of recurrent major depressive disorder, without psychotic features F33.2 [place] [address] [address] June, [place] [address] [address] June, Blood in the stool K92.1 and BMI 50.0-59.9, adult Z68.43 [place] [address] [address] May, [place] [address] [address] Apr, Chronic depression F32.9 ; B enign hypertension I10 ; Mixed hyperlipidemia E78.2 ; Gout M10.9 and BMI 50.0-59.9, adult Z68.43 [place] [address] [address] Mar, Mixed hyperlipidemia E78.2 ; Benign hypertension I10 and Gout M10.9 [place] [address] [address] Mar, Mixed hyperlipidemia E78.2 ; Gout M10.9 and Benign hypertension I10 [facility] [address] [address] Jan, Acute left-sided low back pa in with left-sided sciatica M54.42 and BMI 50.0-59.9, adult Z68.43 [facility] [address] [address] Oct, Acute midline low back pain with left-sided sciatica M54.42 [place] [address] [address] Oct, [place] [address] [address] Oct, Chronic depression F32.9 ; B enign hypertension I10 ; Mixed hyperlipidemia E78.2 and Gout M10.9 [place] [address] [address] Sep, Chronic depression F32.9 ; B enign hypertension I10 ; Mixed hyperlipidemia E78.2 and Gout M10.9 [place] [address] [address] June, Chronic depression F32.9 ; G out M10.9 ; Benign hypertension I10 ; Obsessive-compulsive disorders F42.9 and Mixed hyperlipidemia E78.2 [place] [address] [address] May, Gout M10.9 ; Mixed hyperlipi demia E78.2 and Benign hypertension I10 [place] [address] [address] Apr, Chronic depression F32.9 ; G out M10.9 ; Benign hypertension I10 ; Obsessive-compulsive disorders F42.9 ; Abnormal results of thyroid function studies R94.6 and Mixed hyperlipidemia E78.2 [place] [address] [address] Apr, [place] [address] [address] Apr, [place] [address] [address] Jan, [place] [address] [address] Dec, [place] [address] [address] Oct, [place] [address] [address] Sep, Anxiety state, unspecified 3 00.00 and Major depressive disorder, single episode, mild 296.21 [facility] [address] [id number] [address] [place] [address] Sep, [facility] [address] [id number] [address] [place] [address] Aug, [facility] [address] [id number] [address] [place] [address] Jul, [facility] [address] [id number] [address] [place] [address] June, Anxiety state, unspecified 3 00.00 and Depressive disorder, not elsewhere classified 311 [facility] [address] [id number] [address] [place] [address] June, [facility] [address] [id number] [address] [place] [address] June, Abnormal thyroid blood test 794.5 [facility] [address] [id number] [address] [place] [address] May, [facility] [address] [id number] [address] [place] [phone] May, [facility] [address] [id number] [address] [place] [address] Apr, [facility] [address] [id number] [address] [place] [phone] Apr, [facility] [address] [id number] [address] [place] [address] Apr, [facility] [address] [id number] [address] [place] [phone] Apr, [facility] [address] [id number] [address] [place] [phone] Apr, [facility] [address] [id number] [address] [place] [phone] Apr, [facility] [address] [id number] [address] [place] [address], [place] [address] Apr, [facility] [address] [id number] [address] [place] [address], [place] [address] Apr, [facility] [address] [id number] [address] [place] [address], [place] [address] Apr, [facility] [address] [id number] [address] [place] [address], [place] [address] Apr, [facility] [address] [id number] [address] [place] [address], [place] [address] Apr, [facility] [address] [id number] [address] [place] [address], [place] [address] Apr, [facility] [address] [id number] [address] [place] [address], [place] [address] Apr, [facility] [address] [id number] [address] [place] [address], [place] [address] Apr, [facility] [address] [id number] [address] [place] [address], [place] [address] Apr, [facility] [address] [id number] [address] [place] [address], [place] [address] Apr, [facility] [address] [id number] [address] [place] [address], [place] [address] Mar, [facility] [address] [id number] [address] [place] [address], [place] [address] Mar, [facility] [address] [id number] [address] [place] [address], [place] [address] Mar, [facility] [address] [id number] [address] [place] [address], [place] [address] Mar, [facility] [address] [id number] [address] [place] [address], [place] [address] Mar, [facility] [address] [id number] [address] [place] [phone] Mar, [facility] [address] [id number] [address] [place] [phone] Mar, [facility] [address] [id number] [address] [place] [phone] Mar, [facility] [address] [id number] [address] [place] [phone] Nov, [facility] [address] [id number] [address] [place] [phone] Nov, [facility] [address] [id number] [address] [place] [phone] Nov, [facility] [address] [id number] [address] [place] [phone] Nov, [facility] [address] [facility] [id number] [address] [place] [phone] Nov, IMMUNIZATIONS No Known Immunizations SOCIAL HISTORY Never Assessed REASON FOR VISIT PLAN OF CARE VITAL SIGNS MEDICATIONS Unknown Medications RESULTS No Results PROCEDURES No Known procedures INSTRUCTIONS MEDICATIONS ADMINISTERED No Known Medications MEDICAL (GENERAL) HISTORY Type Description Date Medical History hypertension 2006 Medical History hyperlipidemia 2006 Medical History obesity Medical History chronic pain 2007 Medical History [id number] Medical History depression Medical History Bipolar disorder, unspecified Medical History Bipolar disorder, unspecified Surgical History Birthmark removed from right side of nos e Hospitalization History depression 03/2014 Hospitalization History depression 04/2014
--- OUTSIDE RECORDS SUMMARY | 2019-03-01 00:25 | XMS REPORT ---
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 Active 07486313 Problem Abnormal results of thyroid function studies R94.6 Active 772587457 Problem Mixed hyperlipidemia E78.2 Active 702238319 Problem Acute midline low back pain with left-sided sciatica M54.42 Active 504823892 Problem Lumbago with sciatica, right side M54.41 Active 416314991 Problem Gout M10.9 Active 64508164 Problem Other chronic pain G89.29 Active 8 3367093 Problem Benign hypertension I10 Active 89562382 Problem Acute left-sided low back pain with left-sided sciatica M54.42 Active 524049962 Problem Severe episode of recurrent major depressive disorder, without psychotic features F33.2 Active 27814286 Problem BELLA (generalized anxiety disorder) F41.1 Active 38321002 Problem Hypersomnolence G47.10 Active 7769 2006 ALLERGIES No Information ENCOUNTERS Encounter Location Date Diagnosis [facility] [address] [facility] [id number] [address] [place] [id number] Sep, [facility] [address] [facility] [id number] [address] [place] [id number] Aug, [facility] [address] [facility] [id number] [address] [place] [address] Jul, BELLA (generalized anxiety dis order) F41.1 ; Severe episode of recurrent major depressive disorder, without psychotic features F33.2 and Morbid obesity E66.01 [facility] [address] [id number] [address] [place] [address] Jul, BELLA (generalized anxiety dis order) F41.1 and Severe episode of recurrent major depressive disorder, without psychotic features F33.2 [facility] [address] [id number] [address] [place] [id number] June, BELLA (generalized anxiety dis order) F41.1 ; Severe episode of recurrent major depressive disorder, without psychotic features F33.2 and Morbid obesity E66.01 [facility] [address] [id number] [address] [place] [address] June, Benign hypertension I10 [facility] [address] [id number] [address] [place] [address] May, [facility] [address] [id number] [address] [place] [address] May, BELLA (generalized anxiety dis order) F41.1 ; Severe episode of recurrent major depressive disorder, without psychotic features F33.2 and Morbid obesity E66.01 [facility] [address] [id number] [address] [place] [id number] Apr, [facility] [address] [id number] [address] [place] [address] Mar, [facility] [address] [id number] [address] [place] [phone] Mar, Severe episode of recurrent major depressive disorder, without psychotic features F33.2 ; BELLA (generalized anxiety disorder) F41.1 and BMI 50.0-59.9, adult Z68.43 [facility] [address] [id number] [address] [place] [id number] Mar, [facility] [address] [id number] [address] [place] [id number] Mar, Benign hypertension I10 [facility] [address] [id number] [address] [place] [address] Mar, [facility] [address] [id number] [address] [place] [id number] Mar, [facility] [address] [id number] [address] [place] [phone] Jan, [facility] [address] [id number] [address] [place] [address] Jan, [facility] [address] [id number] [address] [place] [id number] Jan, Hypersomnolence G47.10 [facility] [address] [id number] [address] [place] [address] Jan, Lumbago with sciatica, right side M54.41 ; Other chronic pain G89.29 and BMI 50.0-59.9, adult Z68.43 [facility] [address] [facility] [id number] [address] [place] [address] Jan, [facility] [address] [id number] [address] [place] [address] Dec, Severe episode of recurrent major depressive disorder, without psychotic features F33.2 ; BELLA (generalized anxiety disorder) F41.1 ; Hypersomnolence G47.10 and BMI 50.0-59.9, adult Z68.43 [facility] [address] [id number] [address] [place] [address] Oct, [facility] [address] [facility] [id number] [address] [place] [address] Sep, Severe episode of recurrent major depressive disorder, without psychotic features F33.2 ; BELLA (generalized anxiety disorder) F41.1 and BMI 50.0-59.9, adult Z68.43 [facility] [address] [id number] [address] [place] [phone] Sep, [facility] [address] [facility] [id number] [address] [place] [address] Sep, Severe episode of recurrent major depressive disorder, without psychotic features F33.2 [place] [address] [address] Sep, Skin disorder L98.9 and BMI 50.0-59.9, adult Z68.43 [place] [address] [address] Sep, Benign hypertension I10 ; Ab scess L02.91 ; Gout M10.9 ; Mixed hyperlipidemia E78.2 and BMI 50.0-59.9, adult Z68.43 [place] [address] [address] Aug, Severe episode of recurrent major depressive disorder, without psychotic features F33.2 ; BELLA (generalized anxiety disorder) F41.1 and BMI 50.0-59.9, adult Z68.43 [place] [address] [address] Jul, BMI 50.0-59.9, adult Z68.43 ; BELLA (generalized anxiety disorder) F41.1 and Severe episode of recurrent major depressive disorder, without psychotic features F33.2 [place] [address] [address] June, [place] [address] [address] June, Blood in the stool K92.1 and BMI 50.0-59.9, adult Z68.43 [place] [address] [place] [id number] [place] [phone] May, [place] [address] [address] Apr, Chronic depression F32.9 ; B enign hypertension I10 ; Mixed hyperlipidemia E78.2 ; Gout M10.9 and BMI 50.0-59.9, adult Z68.43 [place] [address] [place] [id number] [place] [address] Mar, Mixed hyperlipidemia E78.2 ; Benign hypertension I10 and Gout M10.9 [place] [address] [address] Mar, Mixed hyperlipidemia E78.2 ; Gout M10.9 and Benign hypertension I10 [facility] [address] [address] Jan, Acute left-sided low back pa in with left-sided sciatica M54.42 and BMI 50.0-59.9, adult Z68.43 [facility] [address] [id number] 22 Oct, 2016 Acute midline low back pain with left-sided sciatica M54.42 [place] [address] [address] Oct, [place] [address] [address] 13 Oct, 2016 Chronic depression F32.9 ; B enign hypertension I10 ; Mixed hyperlipidemia E78.2 and Gout M10.9 [place] [address] [address] Sep, Chronic depression F32.9 ; B enign hypertension I10 ; Mixed hyperlipidemia E78.2 and Gout M10.9 [place] [address] [address] June, Chronic depression F32.9 ; G out M10.9 ; Benign hypertension I10 ; Obsessive-compulsive disorders F42.9 and Mixed hyperlipidemia E78.2 [place] [address] [address] May, Gout M10.9 ; Mixed hyperlipi demia E78.2 and Benign hypertension I10 [place] [address] [address] Apr, Chronic depression F32.9 ; G out M10.9 ; Benign hypertension I10 ; Obsessive-compulsive disorders F42.9 ; Abnormal results of thyroid function studies R94.6 and Mixed hyperlipidemia E78.2 [facility] [address] [facility] [id number] [address] [place] [phone] Apr, [facility] [address] [facility] [id number] [address] [place] [address] Apr, [facility] [address] [facility] [id number] [address] [place] [id number] Jan, [facility] [address] [id number] [address] [place] [id number] Dec, [facility] [address] [facility] [id number] [address] [place] [address] Oct, [facility] [address] [facility] [id number] [address] [place] [address] Sep, Anxiety state, unspecified 3 00.00 and Major depressive disorder, single episode, mild 296.21 [facility] [address] [facility] [id number] [address] [place] [address] Sep, [facility] [address] [facility] [id number] [address] [place] [phone] Aug, [facility] [address] [facility] [id number] [address] [place] [id number] Jul, [facility] [address] [facility] [id number] [address] [place] [address] June, Anxiety state, unspecified 3 00.00 and Depressive disorder, not elsewhere classified 311 [facility] [address] [facility] [id number] [address] [place] [address] June, [facility] [address] [facility] [id number] [address] [place] [address] June, Abnormal thyroid blood test 794.5 [facility] [address] [facility] [id number] [address] [place] [address] May, [facility] [address] [id number] [address] [place] [address], [place] [address] 13 May, 2014 [facility] [address] [id number] [address] [place] [address], [place] [address] 24 Apr, 2014 [facility] [address] [id number] [address] [place] [address], [place] [address] 24 Apr, 2014 [facility] [address] [id number] [address] [place] [address], [place] [address] Apr, [facility] [address] [id number] [address] [place] [address], [place] [address] Apr, [facility] [address] [id number] [address] [place] [address], [place] [address] Apr, [facility] [address] [id number] [address] [place] [address], [place] [address] Apr, [facility] [address] [id number] [address] [place] [address], [place] [address] Apr, [facility] [address] [id number] [address] [place] [address], [place] [address] Apr, [facility] [address] [id number] [address] [place] [address], [place] [address] Apr, [facility] [address] [id number] [address] [place] [address], [place] [address] Apr, [facility] [address] [id number] [address] [place] [address], [place] [address] Apr, [facility] [address] [id number] [address] [place] [address], [place] [address] Apr, [facility] [address] [id number] [address] [place] [address], [place] [address] Apr, [facility] [address] [id number] [address] [place] [address], [place] [address] Apr, [facility] [address] [id number] [address] [place] [address] Apr, [facility] [address] [id number] [address] [phone] Apr, [facility] [address] [id number] [address] [place] [address] Mar, [facility] [address] [id number] [address] [place] [phone] Mar, [facility] [address] [id number] [address] [place] [address] Mar, [facility] [address] [id number] [address] [place] [phone] Mar, [facility] [address] [id number] [address] [place] [id number] Mar, [facility] [address] [id number] [address] [place] [phone] Mar, [facility] [address] [id number] [address] [place] [phone] Mar, [facility] [address] [id number] [address] [place] [id number] Mar, [facility] [address] [id number] [address] [place] [address] Nov, [facility] [address] [id number] [address] [place] [phone] Nov, [facility] [address] [id number] [address] [place] [id number] Nov, [facility] [address] [id number] [address] [place] [address] Nov, [facility] [address] [id number] [address] [place] [id number] Nov, IMMUNIZATIONS No Known Immunizations SOCIAL HISTORY Never Assessed REASON FOR VISIT PLAN OF CARE VITAL SIGNS Height 78 in 2014-04-04 Weight 304.09 lbs 2014-04-04 Temperature 98.4 degrees Fahrenheit 2014-04-04 Heart Rate 100 bpm 2014-04-04 Respiratory Rate 22 2014-04-04 Blood pressure systolic 128 mmHg 2014-04-04 Blood pressure diastolic 76 mmHg 2014-04-04 MEDICATIONS Unknown Medications RESULTS No Results PROCEDURES No Known procedures INSTRUCTIONS MEDICATIONS ADMINISTERED No Known Medications MEDICAL (GENERAL) HISTORY Type Description Date Medical History hypertension 2006 Medical History hyperlipidemia 2006 Medical History obesity Medical History chronic pain 2007 Medical History [id number] Medical History depression Medical History Bipolar disorder, unspecified Medical History Bipolar disorder, unspecified Medical History sleep apnea Surgical History Birthmark removed from right side of nos e Hospitalization History depression 03/2014 Hospitalization History depression 04/2014
--- OUTSIDE RECORDS SUMMARY | 2019-03-01 00:25 | XMS REPORT ---
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 Active 39438677 Problem Abnormal results of thyroid function studies R94.6 Active 648641721 Problem Mixed hyperlipidemia E78.2 Active 275685047 Problem Acute midline low back pain with left-sided sciatica M54.42 Active 454053487 Problem Lumbago with sciatica, right side M54.41 Active 143738770 Problem Gout M10.9 Active 67358365 Problem Other chronic pain G89.29 Active 8 6486456 Problem Benign hypertension I10 Active 15008697 Problem Acute left-sided low back pain with left-sided sciatica M54.42 Active 677889754 Problem Severe episode of recurrent major depressive disorder, without psychotic features F33.2 Active 42693424 Problem BELLA (generalized anxiety disorder) F41.1 Active 81382247 Problem Hypersomnolence G47.10 Active 7769 2006 ALLERGIES No Information ENCOUNTERS Encounter Location Date Diagnosis [facility] [place] [address] [facility] [id number] [address] [place] [address] Sep, [facility] [place] [address] [facility] [id number] [address] [place] [address] Aug, [facility] [place] [address] [facility] [id number] [address] [place] [phone] Jul, BELLA (generalized anxiety dis order) F41.1 ; Severe episode of recurrent major depressive disorder, without psychotic features F33.2 and Morbid obesity E66.01 [facility] [place] [address] [id number] [address] [place] [address] Jul, BELLA (generalized anxiety dis order) F41.1 and Severe episode of recurrent major depressive disorder, without psychotic features F33.2 [facility] [place] [address] [id number] [address] [place] [address] June, BELLA (generalized anxiety dis order) F41.1 ; Severe episode of recurrent major depressive disorder, without psychotic features F33.2 and Morbid obesity E66.01 [facility] [place] [address] [id number] [address] [place] [address] June, Benign hypertension I10 [facility] [place] [address] [id number] [address] [place] [address] May, [facility] [place] [address] [id number] [address] [place] [address] May, BELLA (generalized anxiety dis order) F41.1 ; Severe episode of recurrent major depressive disorder, without psychotic features F33.2 and Morbid obesity E66.01 [facility] [place] [address] [id number] [address] [place] [address] Apr, [facility] [place] [address] [id number] [address] [place] [address] Mar, [facility] [place] [address] [id number] [address] [place] [address] Mar, Severe episode of recurrent major depressive disorder, without psychotic features F33.2 ; BELLA (generalized anxiety disorder) F41.1 and BMI 50.0-59.9, adult Z68.43 [facility] [place] [address] [id number] [address] [place] [phone] Mar, [facility] [place] [address] [id number] [address] [place] [phone] Mar, Benign hypertension I10 [facility] [place] [address] [facility] [id number] [address] [place] [address] Mar, [facility] [place] [address] [id number] [address] [place] [phone] Mar, [facility] [place] [address] [id number] [address] [place] [address] Jan, [facility] [place] [address] [id number] [address] [place] [address] Jan, [facility] [place] [address] [id number] [address] [place] [phone] Jan, Hypersomnolence G47.10 [facility] [place] [address] [id number] [address] [place] [address] Jan, Lumbago with sciatica, right side M54.41 ; Other chronic pain G89.29 and BMI 50.0-59.9, adult Z68.43 [facility] [place] [address] [facility] [id number] [address] [place] [address] Jan, [facility] [place] [address] [id number] [address] [place] [address] Dec, Severe episode of recurrent major depressive disorder, without psychotic features F33.2 ; BELLA (generalized anxiety disorder) F41.1 ; Hypersomnolence G47.10 and BMI 50.0-59.9, adult Z68.43 [facility] [place] [address] [facility] [id number] [address] [place] [address] Oct, [facility] [place] [address] [facility] [id number] [address] [place] [address] Sep, Severe episode of recurrent major depressive disorder, without psychotic features F33.2 ; BELLA (generalized anxiety disorder) F41.1 and BMI 50.0-59.9, adult Z68.43 [facility] [place] [address] [id number] [address] [place] [address] Sep, [facility] [place] [address] [facility] [id number] [address] [place] [address] Sep, Severe episode of recurrent major depressive disorder, without psychotic features F33.2 [place] [address] [place] [id number] [address] [place] [address] Sep, Skin disorder L98.9 and BMI 50.0-59.9, adult Z68.43 [place] [address] [place] [id number] [place] [address] Sep, Benign hypertension I10 ; Ab scess L02.91 ; Gout M10.9 ; Mixed hyperlipidemia E78.2 and BMI 50.0-59.9, adult Z68.43 [place] [address] [place] [id number] [place] [address] Aug, Severe episode of recurrent major depressive disorder, without psychotic features F33.2 ; BELLA (generalized anxiety disorder) F41.1 and BMI 50.0-59.9, adult Z68.43 [place] [address] [id number] Jul, BMI 50.0-59.9, adult Z68.43 ; BELLA (generalized anxiety disorder) F41.1 and Severe episode of recurrent major depressive disorder, without psychotic features F33.2 [place] [address] [place] [id number] [place] [address] June, [place] [address] [place] [id number] [place] [address] June, Blood in the stool K92.1 and BMI 50.0-59.9, adult Z68.43 [place] [address] [place] [id number] [address] [place] [address] May, [place] [address] [place] [id number] [place] [address] Apr, Chronic depression F32.9 ; B enign hypertension I10 ; Mixed hyperlipidemia E78.2 ; Gout M10.9 and BMI 50.0-59.9, adult Z68.43 [place] [address] [place] [id number] [place] [address] Mar, Mixed hyperlipidemia E78.2 ; Benign hypertension I10 and Gout M10.9 [place] [id number] [address] Mar, Mixed hyperlipidemia E78.2 ; Gout M10.9 and Benign hypertension I10 [facility] [address] [address] Jan, Acute left-sided low back pa in with left-sided sciatica M54.42 and BMI 50.0-59.9, adult Z68.43 [facility] [address] [address] 22 Oct, 2016 Acute midline low back pain with left-sided sciatica M54.42 [place] [address] [address] Oct, [place] [address] [address] Oct, Chronic depression F32.9 ; B enign hypertension I10 ; Mixed hyperlipidemia E78.2 and Gout M10.9 [place] [address] [address] Sep, Chronic depression F32.9 ; B enign hypertension I10 ; Mixed hyperlipidemia E78.2 and Gout M10.9 [place] [address] [phone] June, Chronic depression F32.9 ; G out M10.9 ; Benign hypertension I10 ; Obsessive-compulsive disorders F42.9 and Mixed hyperlipidemia E78.2 [place] [address] [address] May, Gout M10.9 ; Mixed hyperlipi demia E78.2 and Benign hypertension I10 [place] [address] [address] Apr, Chronic depression F32.9 ; G out M10.9 ; Benign hypertension I10 ; Obsessive-compulsive disorders F42.9 ; Abnormal results of thyroid function studies R94.6 and Mixed hyperlipidemia E78.2 [facility] [place] [address] [facility] [id number] [address] [place] [address] Apr, [facility] [place] [address] [facility] [id number] [address] [place] [address] Apr, [facility] [place] [address] [facility] [id number] [address] [place] [address] Jan, [facility] [place] [address] [facility] [id number] [address] [place] [address] Dec, [facility] [place] [address] [facility] [id number] [address] [place] [address] Oct, [facility] [place] [address] [facility] [id number] [address] [place] [address] Sep, Anxiety state, unspecified 3 00.00 and Major depressive disorder, single episode, mild 296.21 [facility] [place] [address] [facility] [id number] [address] [place] [address] Sep, [facility] [place] [address] [facility] [id number] [address] [place] [address] Aug, [facility] [place] [address] [facility] [id number] [address] [place] [address] Jul, [facility] [place] [address] [facility] [id number] [address] [place] [address] June, Anxiety state, unspecified 3 00.00 and Depressive disorder, not elsewhere classified 311 [facility] [place] [address] [facility] [id number] [address] [place] [address] June, [facility] [place] [address] [facility] [id number] [address] [place] [address] June, Abnormal thyroid blood test 794.5 [facility] [place] [address] [facility] [id number] [address] [place] [address] May, [facility] [address] [id number] [address] [place] [address], [place] [address] 13 May, 2014 [facility] [address] [id number] [address] [place] [address], [place] [address] 24 Apr, 2014 [facility] [address] [id number] [address] [place] [address], [place] [address] 24 Apr, 2014 [facility] [address] [id number] [address] [place] [address], [place] [address] Apr, [facility] [address] [id number] [address] [place] [address], [place] [address] Apr, [facility] [address] [id number] [address] [place] [address], [place] [address] Apr, [facility] [address] [id number] [address] [place] [address], [place] [address] Apr, [facility] [address] [id number] [address] [place] [address], [place] [address] Apr, [facility] [address] [id number] [address] [place] [address], [place] [address] Apr, [facility] [address] [id number] [address] [place] [address], [place] [address] Apr, [facility] [address] [id number] [address] [place] [address], [place] [address] Apr, [facility] [address] [id number] [address] [place] [address] Apr, [facility] [address] [id number] [address] [place] [address], [place] [address] Apr, [facility] [address] [id number] [address] [place] [address], [place] [address] Apr, [facility] [address] [id number] [address] [place] [address], [place] [address] Apr, [facility] [address] [id number] [address] [place] [address] Apr, [facility] [place] [address] [id number] [address] [place] [address] Apr, [facility] [place] [address] [id number] [address] [place] [address] Mar, [facility] [place] [address] [id number] [address] [place] [address] Mar, [facility] [place] [address] [id number] [address] [place] [address] Mar, [facility] [place] [address] [id number] [address] [place] [address] Mar, [facility] [place] [address] [id number] [address] [place] [address] Mar, [facility] [place] [address] [id number] [address] [place] [address] Mar, [facility] [place] [address] [id number] [address] [place] [address] Mar, [facility] [place] [address] [id number] [address] [place] [address] Mar, [facility] [place] [address] [id number] [address] [place] [address] Nov, [facility] [place] [address] [id number] [address] [place] [address] Nov, [facility] [place] [address] [id number] [address] [place] [address] Nov, [facility] [place] [address] [id number] [address] [place] [address] Nov, [facility] [place] [address] [id number] [address] [place] [address] Nov, IMMUNIZATIONS No Known Immunizations SOCIAL HISTORY Never Assessed REASON FOR VISIT PLAN OF CARE VITAL SIGNS MEDICATIONS Unknown Medications RESULTS No Results PROCEDURES No Known procedures INSTRUCTIONS MEDICATIONS ADMINISTERED No Known Medications MEDICAL (GENERAL) HISTORY Type Description Date Medical History hypertension 2007 Medical History hyperlipidemia 2006 Medical History obesity Medical History chronic pain 2007 Medical History [id number] Medical History depression Medical History Bipolar disorder, unspecified Medical History Bipolar disorder, unspecified Medical History sleep apnea Surgical History Birthmark removed from right side of nos e Hospitalization History depression 03/2014 Hospitalization History depression 04/2014
--- OUTSIDE RECORDS SUMMARY | 2019-03-01 00:25 | XMS REPORT ---
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 Active 73434854 Problem Chronic depression F32.9 Active 1 09512406 Problem Hypersomnolence G47.10 Active 7769 2005 Problem Severe episode of recurrent major depressive disorder, without psychotic features F33.2 Active 47867915 Problem Acute midline low back pain with left-sided sciatica M54.42 Active 232150784 Problem Mixed hyperlipidemia E78.2 Active 312746521 Problem BELLA (generalized anxiety disorder) F41.1 Active 91307731 Problem Acute left-sided low back pain with left-sided sciatica M54.42 Active 535373380 ALLERGIES No Information ENCOUNTERS Encounter Location Date Diagnosis [place] [id number] [facility] [id number] [address] [place] [phone] Mar, [facility] [address] [place] [id number] [address] [place] [phone] Jan, [facility] [address] [place] [id number] [address] [place] [address] Dec, Severe episode of recurrent major depressive disorder, without psychotic features F33.2 ; BELLA (generalized anxiety disorder) F41.1 ; Hypersomnolence G47.10 and BMI 50.0-59.9, adult Z68.43 [facility] [address] [place] [id number] [address] [place] [address] Oct, [place] [address] [address] Sep, Severe episode of recurrent major depressive disorder, without psychotic features F33.2 ; BELLA (generalized anxiety disorder) F41.1 and BMI 50.0-59.9, adult Z68.43 [place] [address] [address] Sep, [place] [address] [address] Sep, Severe episode of recurrent major depressive disorder, without psychotic features F33.2 [place] [address] [address] Sep, Skin disorder L98.9 and BMI 50.0-59.9, adult Z68.[address] [address] Sep, Benign hypertension I10 ; Ab scess L02.91 ; Gout M10.9 ; Mixed hyperlipidemia E78.2 and BMI 50.0-59.9, adult Z68.43 [place] [address] [address] Aug, Severe episode of recurrent major depressive disorder, without psychotic features F33.2 ; BELLA (generalized anxiety disorder) F41.1 and BMI 50.0-59.9, adult Z68.43 [place] [address] [address] Jul, BMI 50.0-59.9, adult Z68.43 ; BELLA (generalized anxiety disorder) F41.1 and Severe episode of recurrent major depressive disorder, without psychotic features F33.2 [place] [address] [place] [id number] [place] [address] June, [place] [address] [address] June, Blood in the stool K92.1 and BMI 50.0-59.9, adult Z68.43 [place] [address] [address] May, [place] [address] [address] Apr, Chronic depression F32.9 ; B enign hypertension I10 ; Mixed hyperlipidemia E78.2 ; Gout M10.9 and BMI 50.0-59.9, adult Z68.43 [place] [address] [address] Mar, Mixed hyperlipidemia E78.2 ; Benign hypertension I10 and Gout M10.9 [place] [address] [address] Mar, Mixed hyperlipidemia E78.2 ; Gout M10.9 and Benign hypertension I10 [facility] [address] [address] Jan, Acute left-sided low back pa in with left-sided sciatica M54.42 and BMI 50.0-59.9, adult Z68.43 [facility] [place] [address] [address] 22 Oct, 2016 Acute midline low back pain with left-sided sciatica M54.42 [place] [address] [address] Oct, [place] [address] [address] 13 Oct, 2016 Chronic depression F32.9 ; B enign hypertension I10 ; Mixed hyperlipidemia E78.2 and Gout M10.9 [place] [address] [address] Sep, Chronic depression F32.9 ; B enign hypertension I10 ; Mixed hyperlipidemia E78.2 and Gout M10.9 [place] [address] [address] June, Chronic depression F32.9 ; G out M10.9 ; Benign hypertension I10 ; Obsessive-compulsive disorders F42.9 and Mixed hyperlipidemia E78.2 [facility] [address] [address] May, Gout M10.9 ; Mixed hyperlipi demia E78.2 and Benign hypertension I10 [facility] [address] [address] Apr, Chronic depression F32.9 ; G out M10.9 ; Benign hypertension I10 ; Obsessive-compulsive disorders F42.9 ; Abnormal results of thyroid function studies R94.6 and Mixed hyperlipidemia E78.2 [facility] [address] [address] Apr, [facility] [address] [address] Apr, [facility] [address] [address] Jan, [facility] [address] [address] Dec, [facility] [address] [address] Oct, [facility] [address] [address] Sep, Anxiety state, unspecified 3 00.00 and Major depressive disorder, single episode, mild 296.21 [facility] [address] [address] Sep, [facility] [address] [address] Aug, [facility] [address] [address] Jul, [facility] [address] [id number] [address] [place] [address] June, Anxiety state, unspecified 3 00.00 and Depressive disorder, not elsewhere classified 311 [facility] [address] [id number] [address] [place] [address], [place] [address] June, [facility] [address] [id number] [address] [place] [address] June, Abnormal thyroid blood test 794.5 [facility] [address] [id number] [address] [place] [address], [place] [address] May, [facility] [address] [id number] [address] [place] [phone] May, [facility] [address] [id number] [address] [place] [address] Apr, [facility] [address] [id number] [address] [place] [address] Apr, [facility] [address] [id number] [address] [place] [phone] Apr, [facility] [address] [id number] [address] [place] [address], [place] [address] Apr, [facility] [address] [id number] [address] [place] [phone] Apr, [facility] [address] [id number] [address] [place] [phone] Apr, [facility] [address] [id number] [address] [place] [phone] Apr, [facility] [address] [id number] [address] [place] [address] Apr, [facility] [address] [id number] [address] [place] [phone] Apr, [facility] [address] [id number] [address] [place] [address] Apr, [facility] [address] [id number] [address] [place] [address], [place] [address] Apr, [facility] [address] [id number] [address] [place] [address], [place] [address] Apr, [facility] [address] [id number] [address] [place] [address], [place] [address] Apr, [facility] [address] [id number] [address] [place] [address], [place] [address] Apr, [facility] [address] [id number] [address] [place] [address], [place] [address] Apr, [facility] [address] [id number] [address] [place] [address], [place] [address] Apr, [facility] [address] [id number] [address] [place] [address], [place] [address] Mar, [facility] [address] [id number] [address] [place] [address], [place] [address] Mar, [facility] [address] [id number] [address] [place] [address], [place] [address] Mar, [facility] [address] [id number] [address] [place] [address], [place] [address] Mar, [facility] [address] [id number] [address] [place] [address], [place] [address] Mar, [facility] [address] [id number] [address] [place] [phone] Mar, [facility] [address] [id number] [address] [place] [address], [place] [address] Mar, [facility] [address] [id number] [address] [place] [address], [place] [address] Mar, [facility] [address] [id number] [address] [place] [address], [place] [address] Nov, [facility] [address] [id number] [address] [place] [phone] 15 Nov, 2013 [facility] [address] [facility] [id number] [address] [place] [phone] Nov, [facility] [address] [facility] [id number] [address] [place] [phone] Nov, [facility] [address] [facility] [id number] [address] [place] [phone] Nov, IMMUNIZATIONS No Known Immunizations SOCIAL HISTORY Never Assessed REASON FOR VISIT f/u [facility] PLAN OF CARE Activity Details Follow Up 2 Months Reason: VITAL SIGNS Height 78 in 2018-01-27 Weight 463.4 lbs 2018-01-27 Heart Rate 99 bpm 2018-01-27 Respiratory Rate 20 2018-01-27 BMI 53.55 kg/m2 2018-01-27 Blood pressure systolic 130 mmHg 2018-01-27 Blood pressure diastolic 78 mmHg 2018-01-27 MEDICATIONS Medication Instructions Dosage Frequency Start Date End Date Duration S tatus Paxil 40 MG Orally Once a day 1 tablet 24h A ctive Atorvastatin Calcium 80MG TAKE ONE-HALF TABLET BY MOUTH ONCE BETZY LY 30 Active Allopurinol 300MG Orally Once a day-appt needed for additional r efills 1 tablet Active Lisinopril 20 mg Orally Once a day take tablet by Oral route 1 time per day 24h Active Zyrtec Allergy 10 MG Orally Once a day 1 tablet 24h Active Tylenol 1 tab Active Aleve 220 MG Orally every 12 hrs 1 capsule with food or milk as needed 12h Active Wellbutrin XL 300 MG Orally Once a day 1 tablet in the morning 24h Aug, Active RESULTS No Results PROCEDURES No Known procedures INSTRUCTIONS MEDICATIONS ADMINISTERED No Known Medications MEDICAL (GENERAL) HISTORY Type Description Date Medical History hypertension 2007 Medical History hyperlipidemia 2006 Medical History obesity Medical History chronic pain 2007 Medical History [id number] Medical History depression Medical History Bipolar disorder, unspecified Medical History Bipolar disorder, unspecified Surgical History Birthmark removed from right side of nos e Hospitalization History depression 03/2014 Hospitalization History depression 04/2014
--- OUTSIDE RECORDS SUMMARY | 2019-03-01 00:26 | XMS REPORT ---
Author Author Mansoor DEVINE Organization [facility] Address [address] [place] [address] Care Team Providers Care Coil Winder Name Role Phone NILSON GRACE Unavailable PROBLEMS Type Condition ICD9-CM Code VSM01-HJ Code Onset Dates Condition S tatus SNOMED Code Problem Obsessive-compulsive disorders F42.9 Active 388070115 Problem Gout M10.9 Active 17553312 Problem Benign hypertension I10 Active 10606511 Problem Chronic depression F32.9 Active 1 57191096 Problem BELLA (generalized anxiety disorder) F41.1 Active 80330902 Problem Severe episode of recurrent major depressive disorder, without psychotic features F33.2 Active 10930233 Problem Mixed hyperlipidemia E78.2 Active 997047552 Problem Abnormal results of thyroid function studies R94.6 Active 493237220 Problem Acute left-sided low back pain with left-sided sciatica M54.42 Active 603809577 Problem Acute midline low back pain with left-sided sciatica M54.42 Active 737028060 ALLERGIES Substance Reaction Event Type Date Status Azithromycin nausea Drug Allergy Aug, Active ENCOUNTERS Encounter Location Date Diagnosis [facility] [address] [facility] [id number] [address] [place] [phone] Oct, [facility] [address] [place] [id number] [address] [place] [address] Sep, Severe episode of recurrent major depressive disorder, without psychotic features F33.2 ; BELLA (generalized anxiety disorder) F41.1 and BMI 50.0-59.9, adult Z68.43 [facility] [address] [facility] [id number] [address] [place] [phone] Sep, [facility] [address] [facility] [id number] [address] [place] [address] Sep, Severe episode of recurrent major depressive disorder, without psychotic features F33.2 [place] [address] [address] Sep, Skin disorder L98.9 and BMI 50.0-59.9, adult Z68.43 [place] [address] [place] [id number] [place] [address] Sep, Benign hypertension I10 ; Ab scess L02.91 ; Gout M10.9 ; Mixed hyperlipidemia E78.2 and BMI 50.0-59.9, adult Z68.43 [place] [address] [address] Aug, Severe episode of recurrent major depressive disorder, without psychotic features F33.2 ; BELLA (generalized anxiety disorder) F41.1 and BMI 50.0-59.9, adult Z68.43 [place] [address] [address] Jul, BMI 50.0-59.9, adult Z68.43 ; BELLA (generalized anxiety disorder) F41.1 and Severe episode of recurrent major depressive disorder, without psychotic features F33.2 [place] [address] [address] June, [place] [address] [place] [id number] [place] [address] June, Blood in the stool K92.1 and BMI 50.0-59.9, adult Z68.43 [place] [address] [address] May, [place] [address] [place] [id number] [place] [address] Apr, Chronic depression F32.9 ; B enign hypertension I10 ; Mixed hyperlipidemia E78.2 ; Gout M10.9 and BMI 50.0-59.9, adult Z68.43 [place] [address] [address] Mar, Mixed hyperlipidemia E78.2 ; Benign hypertension I10 and Gout M10.9 [facility] [address] [facility] [id number] [address] [place] [address] Mar, Mixed hyperlipidemia E78.2 ; Gout M10.9 and Benign hypertension I10 [facility] [address] [facility] [id number] [address] [place] [address] Jan, Acute left-sided low back pa in with left-sided sciatica M54.42 and BMI 50.0-59.9, adult Z68.43 [facility] [address] [facility] [id number] [address] [place] [address] 22 Oct, 2016 Acute midline low back pain with left-sided sciatica M54.42 [place] [address] [place] [id number] [address] [place] [address] 20 Oct, 2016 [place] [address] [address] 13 Oct, 2016 Chronic depression F32.9 ; B enign hypertension I10 ; Mixed hyperlipidemia E78.2 and Gout M10.9 [place] [address] [address] Sep, Chronic depression F32.9 ; B enign hypertension I10 ; Mixed hyperlipidemia E78.2 and Gout M10.9 [place] [address] [place] [id number] [address] [place] [address] June, Chronic depression F32.9 ; G out M10.9 ; Benign hypertension I10 ; Obsessive-compulsive disorders F42.9 and Mixed hyperlipidemia E78.2 [place] [address] [facility] [id number] [address] [place] [phone] May, Gout M10.9 ; Mixed hyperlipi demia E78.2 and Benign hypertension I10 [place] [address] [facility] [id number] [address] [place] [address] Apr, Chronic depression F32.9 ; G out M10.9 ; Benign hypertension I10 ; Obsessive-compulsive disorders F42.9 ; Abnormal results of thyroid function studies R94.6 and Mixed hyperlipidemia E78.2 [facility] [address] [id number] [address] [place] [address] Apr, [facility] [address] [id number] [address] [place] [address] Apr, [facility] [address] [id number] [address] [place] [address] Jan, [facility] [address] [id number] [address] [place] [address] Dec, [facility] [address] [id number] [address] [place] [address] Oct, [facility] [address] [facility] [id number] [address] [place] [address] Sep, Anxiety state, unspecified 3 00.00 and Major depressive disorder, single episode, mild 296.21 [facility] [address] [id number] [address] [place] [address] Sep, [facility] [address] [id number] [address] [place] [address] Aug, [facility] [address] [facility] [id number] [address] [place] [address] Jul, [facility] [address] [id number] [address] [place] [address] June, Anxiety state, unspecified 3 00.00 and Depressive disorder, not elsewhere classified 311 [facility] [address] [id number] [address] [place] [address] June, [facility] [address] [facility] [id number] [address] [place] [address] June, Abnormal thyroid blood test 794.5 [facility] [address] [facility] [id number] [address] [place] [phone] May, [facility] [address] [id number] [address] [place] [address], [place] [address] 13 May, 2014 [facility] [address] [id number] [address] [place] [address], [place] [address] 24 Apr, 2014 [facility] [address] [id number] [address] [place] [address], [place] [address] 24 Apr, 2014 [facility] [address] [id number] [address] [place] [address], [place] [address] 23 Apr, 2014 [facility] [address] [id number] [address] [place] [address], [place] [address] 23 Apr, 2014 [facility] [address] [id number] [address] [place] [address], [place] [address] 19 Apr, 2014 [facility] [address] [id number] [address] [place] [address], [place] [address] 19 Apr, 2014 [facility] [address] [id number] [address] [place] [address], [place] [address] 17 Apr, 2014 [facility] [address] [id number] [address] [place] [address], [place] [address] 17 Apr, 2014 [facility] [address] [id number] [address] [place] [address], [place] [address] 24 Apr, 2014 [facility] [address] [id number] [address] [place] [address], [place] [address] Apr, 2014 [facility] [address] [id number] [address] [place] [address], [place] [address] 24 Apr, 2014 [facility] [address] [id number] [address] [place] [address], [place] [address] 24 Apr, 2014 [facility] [address] [id number] [address] [place] [address], [place] [address] 04 Apr, 2014 [facility] [address] [id number] [address] [place] [address], [place] [address] 04 Apr, 2014 [facility] [address] [id number] [address] [place] [address], [place] [address] Apr, [facility] [address] [id number] [address] [place] [address] Apr, [facility] [address] [id number] [address] [place] [phone] Mar, [facility] [address] [id number] [address] [place] [phone] Mar, [facility] [address] [id number] [address] [place] [phone] Mar, [facility] [address] [id number] [address] [place] [phone] Mar, [facility] [address] [id number] [address] [place] [phone] Mar, [facility] [address] [id number] [address] [place] [phone] Mar, [facility] [address] [id number] [address] [place] [phone] Mar, [facility] [address] [id number] [address] [place] [id number] Mar, [facility] [address] [id number] [address] [place] [phone] Nov, [facility] [address] [id number] [address] [place] [id number] Nov, [facility] [address] [id number] [address] [place] [phone] Nov, [facility] [address] [id number] [address] [place] [id number] Nov, [facility] [address] [id number] [address] [place] [id number] Nov, IMMUNIZATIONS No Known Immunizations SOCIAL HISTORY Never Assessed REASON FOR VISIT nga/vernon Fagan MA PLAN OF CARE Activity Details Follow Up 6 Weeks Reason: VITAL SIGNS Height 78 in 2017-09-17 Weight 457.1 lbs 2017-09-17 Heart Rate 106 bpm 2017-09-17 Respiratory Rate 20 2017-09-17 Oximetry 96 % 2017-09-17 BMI 52.82 kg/m2 2017-09-17 Blood pressure systolic 132 mmHg 2017-09-17 Blood pressure diastolic 80 mmHg 2017-09-17 MEDICATIONS Medication Instructions Dosage Frequency Start Date End Date Duration S tatus Paxil 40 MG Orally Once a day 1 tablet 24h A ctive Wellbutrin XL 150 MG Orally Once a day 1 tablet every morn ing for one week then take 2 tablets every morning 24h Aug, 30 day(s) Active Lisinopril 20 mg Orally Once a day take tablet by Oral route 1 time per day 24h Active Atorvastatin Calcium 80MG TAKE ONE-HALF TABLET BY MOUTH ONCE BETZY LY Active Zyrtec Allergy 10 MG Orally Once a day 1 tablet 24h Active Tylenol 1 tab Active Aleve 220 MG Orally every 12 hrs 1 capsule with food or milk as needed 12h Active Allopurinol 300MG Orally Once a day-appt needed for additional r efills 1 tablet Active RESULTS No Results PROCEDURES No Known procedures INSTRUCTIONS MEDICATIONS ADMINISTERED No Known Medications MEDICAL (GENERAL) HISTORY Type Description Date Medical History hypertension 2006 Medical History hyperlipidemia 2006 Medical History obesity Medical History chronic pain 2007 Medical History [id number] Medical History depression Medical History Bipolar disorder, unspecified Medical History Bipolar disorder, unspecified Surgical History Birthmark removed from right side of nos e Hospitalization History depression 03/2014 Hospitalization History depression 04/2014
--- OUTSIDE RECORDS SUMMARY | 2019-03-01 00:26 | XMS REPORT ---
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 Active 76572577 Problem Gout M10.9 Active 61033652 Problem Benign hypertension I10 Active 16477789 Problem Chronic depression F32.9 Active 1 64027756 Problem Obsessive-compulsive disorders F42.9 Active 970950532 Problem BELLA (generalized anxiety disorder) F41.1 Active 17675911 Problem Severe episode of recurrent major depressive disorder, without psychotic features F33.2 Active 52280416 Problem Mixed hyperlipidemia E78.2 Active 345571813 Problem Abnormal results of thyroid function studies R94.6 Active 212345407 Problem Acute left-sided low back pain with left-sided sciatica M54.42 Active 383642194 Problem Acute midline low back pain with left-sided sciatica M54.42 Active 222123928 ALLERGIES No Information ENCOUNTERS Encounter Location Date Diagnosis [place] [id number] [facility] [id number] [address] [place] [phone] Oct, [facility] [address] [place] [id number] [address] [place] [phone] Sep, Severe episode of recurrent major depressive disorder, without psychotic features F33.2 ; BELLA (generalized anxiety disorder) F41.1 and BMI 50.0-59.9, adult Z68.43 [facility] [address] [facility] [id number] [address] [place] [phone] Sep, [facility] [address] [facility] [id number] [address] [place] [address] Sep, Severe episode of recurrent major depressive disorder, without psychotic features F33.2 [place] [address] [place] [id number] [place] [address] Sep, Skin disorder L98.9 and BMI 50.0-59.9, adult Z68.43 [place] [address] [place] [id number] [place] [address] Sep, Benign hypertension I10 ; Ab scess L02.91 ; Gout M10.9 ; Mixed hyperlipidemia E78.2 and BMI 50.0-59.9, adult Z68.43 [place] [address] [address] Aug, Severe episode of recurrent major depressive disorder, without psychotic features F33.2 ; BELLA (generalized anxiety disorder) F41.1 and BMI 50.0-59.9, adult Z68.43 [place] [address] [address] Jul, BMI 50.0-59.9, adult Z68.43 ; BELLA (generalized anxiety disorder) F41.1 and Severe episode of recurrent major depressive disorder, without psychotic features F33.2 [place] [address] [address] June, [place] [address] [place] [id number] [place] [address] June, Blood in the stool K92.1 and BMI 50.0-59.9, adult Z68.43 [place] [address] [place] [id number] [place] [address] May, [place] [address] [place] [id number] [place] [address] Apr, Chronic depression F32.9 ; B enign hypertension I10 ; Mixed hyperlipidemia E78.2 ; Gout M10.9 and BMI 50.0-59.9, adult Z68.43 [place] [address] [place] [id number] [place] [address] Mar, Mixed hyperlipidemia E78.2 ; Benign hypertension I10 and Gout M10.9 [facility] [id number] [place] [address] Mar, Mixed hyperlipidemia E78.2 ; Gout M10.9 and Benign hypertension I10 [facility] [address] [place] [id number] [address] [place] [phone] Jan, Acute left-sided low back pa in with left-sided sciatica M54.42 and BMI 50.0-59.9, adult Z68.43 [facility] [address] [place] [id number] [place] [phone] 22 Oct, 2016 Acute midline low back pain with left-sided sciatica M54.42 [place] [address] [place] [id number] [place] [phone] 20 Oct, 2016 [place] [address] [address] 13 Oct, 2016 Chronic depression F32.9 ; B enign hypertension I10 ; Mixed hyperlipidemia E78.2 and Gout M10.9 [place] [address] [address] Sep, Chronic depression F32.9 ; B enign hypertension I10 ; Mixed hyperlipidemia E78.2 and Gout M10.9 [place] [address] [address] June, Chronic depression F32.9 ; G out M10.9 ; Benign hypertension I10 ; Obsessive-compulsive disorders F42.9 and Mixed hyperlipidemia E78.2 [place] [address] [place] [id number] [address] [place] [phone] May, Gout M10.9 ; Mixed hyperlipi demia E78.2 and Benign hypertension I10 [place] [address] [place] [id number] [place] [address] Apr, Chronic depression F32.9 ; G out M10.9 ; Benign hypertension I10 ; Obsessive-compulsive disorders F42.9 ; Abnormal results of thyroid function studies R94.6 and Mixed hyperlipidemia E78.2 [facility] [address] [facility] [id number] [address] [place] [phone] Apr, [facility] [address] [id number] [address] [place] [phone] Apr, [facility] [address] [id number] [address] [place] [phone] Jan, [facility] [address] [id number] [address] [place] [phone] Dec, [facility] [address] [facility] [id number] [address] [place] [phone] Oct, [facility] [address] [facility] [id number] [address] [place] [address] Sep, Anxiety state, unspecified 3 00.00 and Major depressive disorder, single episode, mild 296.21 [facility] [address] [id number] [address] [place] [phone] Sep, [facility] [address] [facility] [id number] [address] [place] [phone] Aug, [facility] [address] [facility] [id number] [address] [place] [address] Jul, [facility] [address] [facility] [id number] [address] [place] [phone] June, Anxiety state, unspecified 3 00.00 and Depressive disorder, not elsewhere classified 311 [facility] [address] [id number] [address] [place] [phone] June, [facility] [address] [facility] [id number] [address] [place] [phone] June, Abnormal thyroid blood test 794.5 [facility] [address] [facility] [id number] [address] [place] [phone] May, [facility] [address] [id number] [address] [place] [address], [place] [address] 13 May, 2014 [facility] [address] [id number] [address] [place] [address], [place] [phone] 24 Apr, 2014 [facility] [address] [id number] [address] [place] [address], [place] [id number] 24 Apr, 2014 [facility] [address] [id number] [address] [place] [address], [place] [id number] 23 Apr, 2014 [facility] [address] [id number] [address] [place] [address], [place] [address] 23 Apr, 2014 [facility] [address] [id number] [address] [place] [address], [place] [address] Apr, [facility] [address] [id number] [address] [place] [address], [place] [address] Apr, [facility] [address] [id number] [address] [place] [address], [place] [address] 17 Apr, 2014 [facility] [address] [id number] [address] [place] [address], [place] [address] 17 Apr, 2014 [facility] [address] [id number] [address] [place] [address], [place] [address] 24 Apr, 2014 [facility] [address] [id number] [address] [place] [address], [place] [address] 24 Apr, 2014 [facility] [address] [id number] [address] [place] [address], [place] [address] 24 Apr, 2014 [facility] [address] [id number] [address] [place] [address], [place] [id number] 24 Apr, 2014 [facility] [address] [id number] [address] [place] [address], [place] [id number] 04 Apr, 2014 [facility] [address] [id number] [address] [place] [address], [place] [id number] 04 Apr, 2014 [facility] [address] [id number] [address] [place] [address], [place] [phone] Apr, [facility] [address] [id number] [address] [place] [phone] Apr, [facility] [address] [id number] [address] [place] [phone] Mar, [facility] [address] [id number] [address] [place] [phone] Mar, [facility] [address] [id number] [address] [place] [phone] Mar, [facility] [address] [id number] [address] [place] [phone] Mar, [facility] [address] [id number] [address] [place] [phone] Mar, [facility] [address] [id number] [address] [place] [phone] Mar, [facility] [address] [id number] [address] [place] [phone] Mar, [facility] [address] [id number] [address] [place] [phone] Mar, [facility] [address] [id number] [address] [place] [phone] Nov, [facility] [address] [id number] [address] [place] [phone] Nov, [facility] [address] [id number] [address] [place] [phone] Nov, [facility] [address] [id number] [address] [place] [phone] Nov, [facility] [address] [id number] [address] [place] [phone] Nov, IMMUNIZATIONS No Known Immunizations SOCIAL HISTORY Never Assessed REASON FOR VISIT Suture removal- Dick Roman RN PLAN OF CARE VITAL SIGNS MEDICATIONS Unknown Medications RESULTS No Results PROCEDURES No Known procedures INSTRUCTIONS MEDICATIONS ADMINISTERED No Known Medications MEDICAL (GENERAL) HISTORY Type Description Date Medical History hypertension 2007 Medical History hyperlipidemia 2006 Medical History obesity Medical History chronic pain 2007 Medical History [id number] Medical History depression Medical History Bipolar disorder, unspecified Medical History Bipolar disorder, unspecified Surgical History Birthmark removed from right side of nos e Hospitalization History depression 03/2014 Hospitalization History depression 04/2014
--- OUTSIDE RECORDS SUMMARY | 2019-03-01 00:26 | XMS REPORT ---
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 Active 76509976 Problem Gout M10.9 Active 46165555 Problem Benign hypertension I10 Active 48458360 Problem Chronic depression F32.9 Active 1 26415806 Problem Obsessive-compulsive disorders F42.9 Active 315097071 Problem BELLA (generalized anxiety disorder) F41.1 Active 09260348 Problem Severe episode of recurrent major depressive disorder, without psychotic features F33.2 Active 33879621 Problem Mixed hyperlipidemia E78.2 Active 453252460 Problem Abnormal results of thyroid function studies R94.6 Active 608655359 Problem Acute left-sided low back pain with left-sided sciatica M54.42 Active 477404159 Problem Acute midline low back pain with left-sided sciatica M54.42 Active 585183428 ALLERGIES Substance Reaction Event Type Date Status Azithromycin nausea Drug Allergy Sep, Active ENCOUNTERS Encounter Location Date Diagnosis [facility] [address] [facility] [id number] [address] [place] [phone] Oct, [facility] [address] [place] [id number] [address] [place] [phone] Sep, Severe episode of recurrent major depressive disorder, without psychotic features F33.2 ; BELLA (generalized anxiety disorder) F41.1 and BMI 50.0-59.9, adult Z68.43 [facility] [address] [facility] [id number] [address] [place] [phone] Sep, [facility] [address] [place] [id number] [address] [place] [phone] Sep, Severe episode of recurrent major depressive disorder, without psychotic features F33.2 [place] [address] [address] Sep, Skin disorder L98.9 and BMI 50.0-59.9, adult Z68.43 [place] [address] [address] Sep, Benign hypertension I10 ; Ab scess L02.91 ; Gout M10.9 ; Mixed hyperlipidemia E78.2 and BMI 50.0-59.9, adult Z68.43 [place] [address] [address] Aug, Severe episode of recurrent major depressive disorder, without psychotic features F33.2 ; BELLA (generalized anxiety disorder) F41.1 and BMI 50.0-59.9, adult Z68.43 [place] [address] [address] Jul, BMI 50.0-59.9, adult Z68.43 ; BELLA (generalized anxiety disorder) F41.1 and Severe episode of recurrent major depressive disorder, without psychotic features F33.2 [place] [address] [address] June, [place] [address] [address] June, Blood in the stool K92.1 and BMI 50.0-59.9, adult Z68.43 [place] [address] [address] May, [place] [address] [address] Apr, Chronic depression F32.9 ; B enign hypertension I10 ; Mixed hyperlipidemia E78.2 ; Gout M10.9 and BMI 50.0-59.9, adult Z68.43 [place] [address] [address] Mar, Mixed hyperlipidemia E78.2 ; Benign hypertension I10 and Gout M10.9 [place] [address] [address] Mar, Mixed hyperlipidemia E78.2 ; Gout M10.9 and Benign hypertension I10 [facility] [address] [address] Jan, Acute left-sided low back pa in with left-sided sciatica M54.42 and BMI 50.0-59.9, adult Z68.43 [facility] [place] [address] [address] 22 Oct, 2016 Acute midline low back pain with left-sided sciatica M54.42 [place] [address] [address] Oct, [place] [address] [address] Oct, Chronic depression F32.9 ; B enign hypertension I10 ; Mixed hyperlipidemia E78.2 and Gout M10.9 [place] [address] [address] Sep, Chronic depression F32.9 ; B enign hypertension I10 ; Mixed hyperlipidemia E78.2 and Gout M10.9 [place] [address] [address] June, Chronic depression F32.9 ; G out M10.9 ; Benign hypertension I10 ; Obsessive-compulsive disorders F42.9 and Mixed hyperlipidemia E78.2 [place] [address] [address] May, Gout M10.9 ; Mixed hyperlipi demia E78.2 and Benign hypertension I10 [place] [address] [address] Apr, Chronic depression F32.9 ; G out M10.9 ; Benign hypertension I10 ; Obsessive-compulsive disorders F42.9 ; Abnormal results of thyroid function studies R94.6 and Mixed hyperlipidemia E78.2 [facility] [address] [facility] [id number] [address] [place] [phone] Apr, [facility] [address] [facility] [id number] [address] [place] [phone] Apr, [facility] [address] [facility] [id number] [address] [place] [phone] Jan, [facility] [address] [facility] [id number] [address] [place] [phone] Dec, [facility] [address] [place] [id number] [address] [place] [address] Oct, [facility] [address] [place] [id number] [address] [place] [address] Sep, Anxiety state, unspecified 3 00.00 and Major depressive disorder, single episode, mild 296.21 [facility] [address] [facility] [id number] [address] [place] [phone] Sep, [facility] [address] [facility] [id number] [address] [place] [address] Aug, [facility] [address] [facility] [id number] [address] [place] [address] Jul, [facility] [address] [facility] [id number] [address] [place] [address] June, Anxiety state, unspecified 3 00.00 and Depressive disorder, not elsewhere classified 311 [facility] [address] [facility] [id number] [address] [place] [address] June, [facility] [address] [facility] [id number] [address] [place] [address] June, Abnormal thyroid blood test 794.5 [facility] [address] [facility] [id number] [address] [place] [phone] May, [facility] [address] [id number] [address] [place] [address], [place] [address] 13 May, 2014 [facility] [address] [id number] [address] [place] [address], [place] [address] 24 Apr, 2014 [facility] [address] [id number] [address] [place] [address], [place] [address] 24 Apr, 2014 [facility] [address] [id number] [address] [place] [address], [place] [address] Apr, [facility] [address] [id number] [address] [place] [address], [place] [address] Apr, [facility] [address] [id number] [address] [place] [address], [place] [address] Apr, [facility] [address] [id number] [address] [place] [address], [place] [address] Apr, [facility] [address] [id number] [address] [place] [address], [place] [address] Apr, [facility] [address] [id number] [address] [place] [address], [place] [address] Apr, [facility] [address] [id number] [address] [place] [address], [place] [address] Apr, [facility] [address] [id number] [address] [place] [address], [place] [address] Apr, [facility] [address] [id number] [address] [place] [phone] Apr, [facility] [address] [id number] [address] [place] [address], [place] [address] Apr, [facility] [address] [id number] [address] [place] [address], [place] [address] Apr, [facility] [address] [id number] [address] [place] [address], [place] [address] Apr, [facility] [address] [id number] [address] [place] [phone] Apr, [facility] [address] [id number] [address] [place] [phone] Apr, [facility] [address] [id number] [address] [place] [phone] Mar, [facility] [address] [id number] [address] [place] [phone] Mar, [facility] [address] [id number] [address] [place] [phone] Mar, [facility] [address] [id number] [address] [place] [phone] Mar, [facility] [address] [id number] [address] [place] [phone] Mar, [facility] [address] [id number] [address] [place] [phone] Mar, [facility] [address] [id number] [address] [place] [phone] Mar, [facility] [address] [id number] [address] [place] [phone] Mar, [facility] [address] [id number] [address] [place] [phone] Nov, [facility] [address] [id number] [address] [place] [phone] Nov, [facility] [address] [id number] [address] [place] [phone] Nov, [facility] [address] [id number] [address] [place] [phone] Nov, [facility] [address] [id number] [address] [place] [phone] Nov, IMMUNIZATIONS No Known Immunizations SOCIAL HISTORY Never Assessed REASON FOR VISIT 2w f/u----DBennettRN PLAN OF CARE Activity Details Follow Up 10 day suture removal Reason : Future/Pending Procedure EXC BENIGN LEISON 1.1-2 cm ( specify location) VITAL SIGNS Height 78 in 2017-10-14 Weight 460 lbs 2017-10-14 Temperature 98.9 degrees Fahrenheit 2017-10-14 Heart Rate 60 bpm 2017-10-14 Respiratory Rate 20 2017-10-14 BMI 53.15 kg/m2 2017-10-14 Blood pressure systolic 132 mmHg 2017-10-14 Blood pressure diastolic 90 mmHg 2017-10-14 MEDICATIONS Medication Instructions Dosage Frequency Start Date End Date Duration S tatus Zyrtec Allergy 10 MG Orally Once a day 1 tablet 24h Active Tylenol 1 tab Active Aleve 220 MG Orally every 12 hrs 1 capsule with food or milk as needed 12h Active Atorvastatin Calcium 80MG TAKE ONE-HALF TABLET BY MOUTH ONCE BETZY LY Active Wellbutrin XL 150 MG Orally Once a day 2 tablets 24h Aug, Active Paxil 40 MG Orally Once a day 1 tablet 24h A ctive Allopurinol 300MG Orally Once a day-appt needed for additional r efills 1 tablet Active Lisinopril 20 mg Orally Once a day take tablet by Oral route 1 time per day 24h Active RESULTS No Results PROCEDURES Procedure Date Ordered Result Body Site EXC TR-EXT B9 RUBIA 1.1-2 CM Oct 14, 2017 INSTRUCTIONS MEDICATIONS ADMINISTERED No Known Medications MEDICAL (GENERAL) HISTORY Type Description Date Medical History hypertension 2006 Medical History hyperlipidemia 2006 Medical History obesity Medical History chronic pain 2007 Medical History [id number] Medical History depression Medical History Bipolar disorder, unspecified Medical History Bipolar disorder, unspecified Surgical History Birthmark removed from right side of nos e Hospitalization History depression 03/2014 Hospitalization History depression 04/2014
--- OUTSIDE RECORDS SUMMARY | 2019-03-01 00:26 | XMS REPORT ---
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 Active 52011562 Problem Gout M10.9 Active 02711008 Problem Benign hypertension I10 Active 45163039 Problem Chronic depression F32.9 Active 1 48159826 Problem Obsessive-compulsive disorders F42.9 Active 847393789 Problem BELLA (generalized anxiety disorder) F41.1 Active 66983056 Problem Severe episode of recurrent major depressive disorder, without psychotic features F33.2 Active 33396336 Problem Mixed hyperlipidemia E78.2 Active 120629437 Problem Abnormal results of thyroid function studies R94.6 Active 555668442 Problem Acute left-sided low back pain with left-sided sciatica M54.42 Active 437326619 Problem Acute midline low back pain with left-sided sciatica M54.42 Active 882106291 ALLERGIES No Information ENCOUNTERS Encounter Location Date Diagnosis [place] [id number] [facility] [id number] [address] [place] [address] Oct, [place] [place] [id number] [address] [place] [address] Sep, Severe episode of recurrent major depressive disorder, without psychotic features F33.2 ; BELLA (generalized anxiety disorder) F41.1 and BMI 50.0-59.9, adult Z68.43 [facility] [address] [place] [id number] [address] [place] [address] Sep, [facility] [address] [place] [id number] [address] [place] [address] Sep, Severe episode of recurrent major depressive disorder, without psychotic features F33.2 [place] [address] [address] Sep, Skin disorder L98.9 and BMI 50.0-59.9, adult Z68.43 [place] [address] [place] [id number] [place] [address] Sep, Benign hypertension I10 ; Ab scess L02.91 ; Gout M10.9 ; Mixed hyperlipidemia E78.2 and BMI 50.0-59.9, adult Z68.43 [place] [address] [address] Aug, Severe episode of recurrent major depressive disorder, without psychotic features F33.2 ; BELLA (generalized anxiety disorder) F41.1 and BMI 50.0-59.9, adult Z68.43 [place] [address] [address] Jul, BMI 50.0-59.9, adult Z68.43 ; BELLA (generalized anxiety disorder) F41.1 and Severe episode of recurrent major depressive disorder, without psychotic features F33.2 [place] [address] [address] June, [place] [address] [place] [id number] [place] [address] June, Blood in the stool K92.1 and BMI 50.0-59.9, adult Z68.43 [place] [address] [address] May, [place] [address] [place] [id number] [place] [address] Apr, Chronic depression F32.9 ; B enign hypertension I10 ; Mixed hyperlipidemia E78.2 ; Gout M10.9 and BMI 50.0-59.9, adult Z68.43 [place] [address] [address] Mar, Mixed hyperlipidemia E78.2 ; Benign hypertension I10 and Gout M10.9 [facility] [address] [facility] [id number] [address] [place] [address] Mar, Mixed hyperlipidemia E78.2 ; Gout M10.9 and Benign hypertension I10 [facility] [address] [facility] [id number] [address] [place] [address] Jan, Acute left-sided low back pa in with left-sided sciatica M54.42 and BMI 50.0-59.9, adult Z68.43 [facility] [address] [facility] [id number] [address] [place] [address] 22 Oct, 2016 Acute midline low back pain with left-sided sciatica M54.42 [place] [address] [place] [id number] [address] [place] [address] 20 Oct, 2016 [place] [address] [address] 13 Oct, 2016 Chronic depression F32.9 ; B enign hypertension I10 ; Mixed hyperlipidemia E78.2 and Gout M10.9 [place] [address] [address] Sep, Chronic depression F32.9 ; B enign hypertension I10 ; Mixed hyperlipidemia E78.2 and Gout M10.9 [place] [address] [place] [id number] [address] [place] [address] June, Chronic depression F32.9 ; G out M10.9 ; Benign hypertension I10 ; Obsessive-compulsive disorders F42.9 and Mixed hyperlipidemia E78.2 [place] [address] [facility] [id number] [address] [place] [address] May, Gout M10.9 ; Mixed hyperlipi demia E78.2 and Benign hypertension I10 [place] [address] [facility] [id number] [address] [place] [address] Apr, Chronic depression F32.9 ; G out M10.9 ; Benign hypertension I10 ; Obsessive-compulsive disorders F42.9 ; Abnormal results of thyroid function studies R94.6 and Mixed hyperlipidemia E78.2 [facility] [address] [id number] [address] [place] [address] Apr, [facility] [address] [id number] [address] [place] [address] Apr, [facility] [address] [id number] [address] [place] [address] Jan, [facility] [address] [id number] [address] [place] [address] Dec, [facility] [address] [id number] [address] [place] [address] Oct, [facility] [address] [facility] [id number] [address] [place] [address] Sep, Anxiety state, unspecified 3 00.00 and Major depressive disorder, single episode, mild 296.21 [facility] [address] [id number] [address] [place] [address] Sep, [facility] [address] [id number] [address] [place] [address] Aug, [facility] [address] [facility] [id number] [address] [place] [address] Jul, [facility] [address] [id number] [address] [place] [address] June, Anxiety state, unspecified 3 00.00 and Depressive disorder, not elsewhere classified 311 [facility] [address] [id number] [address] [place] [address] June, [facility] [address] [facility] [id number] [address] [place] [address] June, Abnormal thyroid blood test 794.5 [facility] [address] [facility] [id number] [address] [place] [address] May, [facility] [address] [id number] [address] [place] [address], [place] [address] 13 May, 2014 [facility] [address] [id number] [address] [place] [address], [place] [address] 24 Apr, 2014 [facility] [address] [id number] [address] [place] [address], [place] [address] 24 Apr, 2014 [facility] [address] [id number] [address] [place] [address], [place] [address] 23 Apr, 2014 [facility] [address] [id number] [address] [place] [address], [place] [address] 23 Apr, 2014 [facility] [address] [id number] [address] [place] [address], [place] [address] 19 Apr, 2014 [facility] [address] [id number] [address] [place] [address], [place] [address] 19 Apr, 2014 [facility] [address] [id number] [address] [place] [address], [place] [address] 17 Apr, 2014 [facility] [address] [id number] [address] [place] [address], [place] [address] 17 Apr, 2014 [facility] [address] [id number] [address] [place] [address], [place] [address] 24 Apr, 2014 [facility] [address] [id number] [address] [place] [address], [place] [address] Apr, 2014 [facility] [address] [id number] [address] [place] [address], [place] [address] 24 Apr, 2014 [facility] [address] [id number] [address] [place] [address], [place] [address] 24 Apr, 2014 [facility] [address] [id number] [address] [place] [address], [place] [address] 04 Apr, 2014 [facility] [address] [id number] [address] [place] [address], [place] [address] 04 Apr, 2014 [facility] [address] [id number] [address] [place] [address], [place] [address] Apr, [facility] [address] [id number] [address] [place] [address] Apr, [facility] [address] [id number] [address] [place] [address] Mar, [facility] [address] [id number] [address] [place] [address] Mar, [facility] [address] [id number] [address] [place] [address] Mar, [facility] [address] [id number] [address] [place] [address] Mar, [facility] [address] [id number] [address] [place] [address] Mar, [facility] [address] [id number] [address] [place] [address] Mar, [facility] [address] [id number] [address] [place] [address] Mar, [facility] [address] [id number] [address] [place] [address] Mar, [facility] [address] [id number] [address] [place] [address] Nov, [facility] [address] [id number] [address] [place] [address] Nov, [facility] [address] [id number] [address] [place] [address] Nov, [facility] [address] [id number] [address] [place] [address] Nov, [facility] [address] [id number] [address] [place] [address] Nov, IMMUNIZATIONS No Known Immunizations SOCIAL HISTORY Never Assessed REASON FOR VISIT wellbutrin xl refills PLAN OF CARE VITAL SIGNS MEDICATIONS Medication Instructions Dosage Frequency Start Date End Date Duration S nasreenus Wellbutrin XL 150 MG Orally Once a day 2 tablets 24h Aug, 30 days Active RESULTS No Results PROCEDURES No Known procedures INSTRUCTIONS MEDICATIONS ADMINISTERED No Known Medications MEDICAL (GENERAL) HISTORY Type Description Date Medical History hypertension 2006 Medical History hyperlipidemia 2006 Medical History obesity Medical History chronic pain 2007 Medical History [id number] Medical History depression Medical History Bipolar disorder, unspecified Medical History Bipolar disorder, unspecified Surgical History Birthmark removed from right side of nos e Hospitalization History depression 03/2014 Hospitalization History depression 04/2014
--- OUTSIDE RECORDS SUMMARY | 2019-03-01 00:26 | XMS REPORT ---
Author Author Mansoor SALAS Organization [facility] Address [address] [place] [address] Care Team Providers Care Control Area Operator Name Role Phone JORDAN SALAS Unavailable PROBLEMS Type Condition ICD9-CM Code CFU13-LI Code Onset Dates Condition S tatus SNOMED Code Problem Obsessive-compulsive disorders F42.9 Active 346240572 Problem Gout M10.9 Active 03364770 Problem Benign hypertension I10 Active 70021374 Problem Chronic depression F32.9 Active 1 92486678 Problem BELLA (generalized anxiety disorder) F41.1 Active 69866009 Problem Severe episode of recurrent major depressive disorder, without psychotic features F33.2 Active 07544176 Problem Mixed hyperlipidemia E78.2 Active 964178730 Problem Abnormal results of thyroid function studies R94.6 Active 847470043 Problem Acute left-sided low back pain with left-sided sciatica M54.42 Active 180926849 Problem Acute midline low back pain with left-sided sciatica M54.42 Active 612551102 ALLERGIES No Information ENCOUNTERS Encounter Location Date Diagnosis [facility] [address] [facility] [id number] [address] [place] [address] Sep, [facility] [address] [place] [id number] [address] [place] [address] Sep, [facility] [address] [facility] [id number] [address] [place] [address] Aug, Severe episode of recurrent major depressive disorder, without psychotic features F33.2 ; BELLA (generalized anxiety disorder) F41.1 and BMI 50.0-59.9, adult Z68.43 [facility] [address] [facility] [id number] [address] [place] [address] Jul, BMI 50.0-59.9, adult Z68.43 ; BELLA (generalized anxiety disorder) F41.1 and Severe episode of recurrent major depressive disorder, without psychotic features F33.2 [place] [address] [address] June, [place] [address] [place] [id number] [place] [address] June, Blood in the stool K92.1 and BMI 50.0-59.9, adult Z68.43 [place] [address] [address] May, [place] [address] [place] [id number] [place] [address] Apr, Chronic depression F32.9 ; B enign hypertension I10 ; Mixed hyperlipidemia E78.2 ; Gout M10.9 and BMI 50.0-59.9, adult Z68.43 [place] [address] [address] Mar, Mixed hyperlipidemia E78.2 ; Benign hypertension I10 and Gout M10.9 [place] [address] [place] [id number] [place] [address] Mar, Mixed hyperlipidemia E78.2 ; Gout M10.9 and Benign hypertension I10 [facility] [address] [place] [id number] [place] [address] Jan, Acute left-sided low back pa in with left-sided sciatica M54.42 and BMI 50.0-59.9, adult Z68.43 [facility] [address] [place] [id number] [address] [place] [address] Oct, Acute midline low back pain with left-sided sciatica M54.42 [place] [address] [place] [id number] [place] [address] 20 Oct, 2016 [place] [address] [place] [id number] [place] [address] 13 Oct, 2016 Chronic depression F32.9 ; B enign hypertension I10 ; Mixed hyperlipidemia E78.2 and Gout M10.9 [place] [address] [place] [id number] [address] [place] [address] Sep, Chronic depression F32.9 ; B enign hypertension I10 ; Mixed hyperlipidemia E78.2 and Gout M10.9 [place] [address] [place] [id number] [place] [address] June, Chronic depression F32.9 ; G out M10.9 ; Benign hypertension I10 ; Obsessive-compulsive disorders F42.9 and Mixed hyperlipidemia E78.2 [place] [address] [address] May, Gout M10.9 ; Mixed hyperlipi demia E78.2 and Benign hypertension I10 [place] [address] [place] [id number] [place] [address] Apr, Chronic depression F32.9 ; G out M10.9 ; Benign hypertension I10 ; Obsessive-compulsive disorders F42.9 ; Abnormal results of thyroid function studies R94.6 and Mixed hyperlipidemia E78.2 [place] [address] [place] [id number] [address] [place] [address] Apr, [place] [address] [place] [id number] [place] [address] Apr, [place] [address] [place] [id number] [address] [place] [address] Jan, [place] [address] [place] [id number] [address] [place] [address] Dec, [place] [address] [place] [id number] [address] [place] [address] Oct, [place] [address] [place] [id number] [place] [address] Sep, Anxiety state, unspecified 3 00.00 and Major depressive disorder, single episode, mild 296.21 [place] [address] [place] [id number] [place] [address] Sep, [facility] [address] [id number] [address] [place] [address] Aug, [facility] [address] [id number] [address] [place] [address] Jul, [facility] [address] [id number] [address] [place] [address] June, Anxiety state, unspecified 3 00.00 and Depressive disorder, not elsewhere classified 311 [facility] [address] [id number] [address] [place] [address] June, [facility] [address] [id number] [address] [place] [address] June, Abnormal thyroid blood test 794.5 [facility] [address] [id number] [address] [place] [address] May, [facility] [address] [id number] [address] [place] [address] May, [facility] [address] [id number] [address] [place] [address] Apr, [facility] [address] [id number] [address] [place] [address] Apr, [facility] [address] [id number] [address] [place] [address] Apr, [facility] [address] [id number] [address] [place] [address] Apr, [facility] [address] [id number] [address] [place] [address] Apr, [facility] [address] [id number] [address] [place] [address] Apr, [facility] [address] [id number] [address] [place] [address] Apr, [facility] [address] [id number] [address] [place] [address], [place] [address] Apr, [facility] [address] [id number] [address] [place] [address], [place] [address] Apr, 2014 [facility] [address] [id number] [address] [place] [address], [place] [address] Apr, 2014 [facility] [address] [id number] [address] [place] [address], [place] [address] Apr, 2014 [facility] [address] [id number] [address] [place] [address], [place] [address] Apr, [facility] [address] [id number] [address] [place] [address], [place] [address] Apr, [facility] [address] [id number] [address] [place] [address], [place] [address] Apr, [facility] [address] [id number] [address] [place] [address], [place] [address] Apr, [facility] [address] [id number] [address] [place] [address], [place] [address] Apr, [facility] [address] [id number] [address] [place] [address], [place] [address] Mar, [facility] [address] [id number] [address] [place] [address], [place] [address] Mar, [facility] [address] [id number] [address] [place] [address], [place] [address] Mar, [facility] [address] [id number] [address] [place] [address], [place] [address] Mar, [facility] [address] [id number] [address] [place] [address], [place] [address] Mar, [facility] [address] [id number] [address] [place] [address], [place] [address] Mar, [facility] [address] [id number] [address] [place] [address], [place] [address] Mar, [facility] [address] [facility] [id number] [address] [place] [address] Mar, [facility] [address] [facility] [id number] [address] [place] [address] Nov, [facility] [address] [facility] [id number] [address] [place] [address] Nov, [facility] [address] [facility] [id number] [address] [place] [address] Nov, [facility] [address] [facility] [id number] [address] [place] [address] Nov, [facility] [address] [facility] [id number] [address] [place] [address] Nov, IMMUNIZATIONS No Known Immunizations SOCIAL HISTORY Never Assessed REASON FOR VISIT requesting return call. PLAN OF CARE VITAL SIGNS MEDICATIONS Unknown Medications RESULTS No Results PROCEDURES No Known procedures INSTRUCTIONS MEDICATIONS ADMINISTERED No Known Medications MEDICAL (GENERAL) HISTORY Type Description Date Medical History hypertension 2007 Medical History hyperlipidemia 2007 Medical History obesity Medical History chronic pain 2007 Medical History [id number] Medical History depression Medical History Bipolar disorder, unspecified Medical History Bipolar disorder, unspecified Surgical History Birthmark removed from right side of nos e Hospitalization History depression 03/2014 Hospitalization History depression 04/2014
--- OUTSIDE RECORDS SUMMARY | 2019-03-01 00:26 | XMS REPORT ---
Author Author Mansoor Obrien Organization [facility] Address [address] [address] Care Team Providers Care Area Attendant Name Role Phone RICHARD Obrien Unavailable PROBLEMS Type Condition ICD9-CM Code [id number] Code Onset Dates Condition S tatus SNOMED Code Problem Obsessive-compulsive disorders F42.9 Active 445308005 Problem Gout M10.9 Active 90967320 Problem Benign hypertension I10 Active 83740973 Problem Chronic depression F32.9 Active 1 11346967 Problem BELLA (generalized anxiety disorder) F41.1 Active 18630970 Problem Severe episode of recurrent major depressive disorder, without psychotic features F33.2 Active 53250960 Problem Mixed hyperlipidemia E78.2 Active 518355792 Problem Abnormal results of thyroid function studies R94.6 Active 274868388 Problem Acute left-sided low back pain with left-sided sciatica M54.42 Active 298540402 Problem Acute midline low back pain with left-sided sciatica M54.42 Active 726113707 ALLERGIES Substance Reaction Event Type Date Status Azithromycin nausea Drug Allergy June, Active ENCOUNTERS Encounter Location Date Diagnosis [facility] [address] [facility] [id number] [address] [place] [address] Sep, [facility] [address] [place] [id number] [address] [place] [address] Sep, [facility] [address] [place] [id number] [address] [place] [address] Sep, Benign hypertension I10 ; Ab scess L02.91 ; Gout M10.9 ; Mixed hyperlipidemia E78.2 and BMI 50.0-59.9, adult Z68.43 [facility] [address] [facility] [id number] [address] [place] [address] Aug, Severe episode of recurrent major depressive disorder, without psychotic features F33.2 ; BELLA (generalized anxiety disorder) F41.1 and BMI 50.0-59.9, adult Z68.43 [place] [address] [address] Jul, BMI 50.0-59.9, adult Z68.43 ; BELLA (generalized anxiety disorder) F41.1 and Severe episode of recurrent major depressive disorder, without psychotic features F33.2 [place] [address] [address] June, [place] [address] [address] June, Blood in the stool K92.1 and BMI 50.0-59.9, adult Z68.43 [place] [address] [address] May, [place] [address] [address] Apr, Chronic depression F32.9 ; B enign hypertension I10 ; Mixed hyperlipidemia E78.2 ; Gout M10.9 and BMI 50.0-59.9, adult Z68.43 [place] [address] [address] Mar, Mixed hyperlipidemia E78.2 ; Benign hypertension I10 and Gout M10.9 [place] [address] [address] Mar, Mixed hyperlipidemia E78.2 ; Gout M10.9 and Benign hypertension I10 [facility] [address] [address] Jan, Acute left-sided low back pa in with left-sided sciatica M54.42 and BMI 50.0-59.9, adult Z68.43 [facility] [address] [address] 22 Oct, 2016 Acute midline low back pain with left-sided sciatica M54.42 [place] [address] [address] 20 Oct, 2016 [place] [address] [address] 13 Oct, 2016 Chronic depression F32.9 ; B enign hypertension I10 ; Mixed hyperlipidemia E78.2 and Gout M10.9 [place] [address] [address] Sep, Chronic depression F32.9 ; B enign hypertension I10 ; Mixed hyperlipidemia E78.2 and Gout M10.9 [place] [address] [address] June, Chronic depression F32.9 ; G out M10.9 ; Benign hypertension I10 ; Obsessive-compulsive disorders F42.9 and Mixed hyperlipidemia E78.2 [place] [address] [address] May, Gout M10.9 ; Mixed hyperlipi demia E78.2 and Benign hypertension I10 [place] [address] [address] Apr, Chronic depression F32.9 ; G out M10.9 ; Benign hypertension I10 ; Obsessive-compulsive disorders F42.9 ; Abnormal results of thyroid function studies R94.6 and Mixed hyperlipidemia E78.2 [place] [address] [address] Apr, [place] [address] [address] Apr, [place] [address] [address] Jan, [place] [address] [address] Dec, [place] [address] [id number] [address] [place] [address] Oct, [facility] [address] [id number] [address] [place] [address] Sep, Anxiety state, unspecified 3 00.00 and Major depressive disorder, single episode, mild 296.21 [facility] [address] [id number] [address] [place] [address] Sep, [facility] [address] [id number] [address] [place] [address] Aug, [facility] [address] [id number] [address] [place] [address] Jul, [facility] [address] [id number] [address] [place] [address] June, Anxiety state, unspecified 3 00.00 and Depressive disorder, not elsewhere classified 311 [facility] [address] [id number] [address] [place] [address] June, [facility] [address] [id number] [address] [place] [address] June, Abnormal thyroid blood test 794.5 [facility] [address] [id number] [address] [place] [address] May, [facility] [address] [id number] [address] [place] [address] May, [facility] [address] [id number] [address] [place] [address] Apr, [facility] [address] [id number] [address] [place] [address] Apr, [facility] [address] [id number] [address] [place] [address] Apr, [facility] [address] [id number] [address] [place] [address] Apr, [facility] [address] [id number] [address] [place] [address], [place] [address] Apr, [facility] [address] [id number] [address] [place] [address], [place] [address] Apr, [facility] [address] [id number] [address] [place] [address], [place] [address] Apr, [facility] [address] [id number] [address] [place] [address], [place] [address] Apr, [facility] [address] [id number] [address] [place] [address], [place] [address] Apr, [facility] [address] [id number] [address] [place] [address], [place] [address] Apr, [facility] [address] [id number] [address] [place] [address], [place] [address] Apr, [facility] [address] [id number] [address] [place] [address], [place] [address] Apr, [facility] [address] [id number] [address] [place] [address], [place] [address] Apr, [facility] [address] [id number] [address] [place] [address], [place] [address] Apr, [facility] [address] [id number] [address] [place] [address], [place] [address] Apr, [facility] [address] [id number] [address] [place] [address], [place] [address] Apr, [facility] [address] [id number] [address] [place] [address], [place] [address] Mar, [facility] [address] [id number] [address] [place] [address], [place] [address] Mar, [facility] [address] [id number] [address] [place] [address], [place] [address] Mar, [facility] [address] [id number] [address] [place] [address], [place] [address] Mar, [facility] [address] [id number] [address] [place] [address] Mar, [facility] [address] [id number] [address] [place] [address] Mar, [facility] [address] [id number] [address] [place] [address] Mar, [facility] [address] [id number] [address] [place] [address] Mar, [facility] [address] [id number] [address] [place] [address] Nov, [facility] [address] [id number] [address] [place] [address] Nov, [facility] [address] [id number] [address] [place] [address] Nov, [facility] [address] [id number] [address] [place] [address] Nov, [facility] [address] [id number] [address] [place] [address] Nov, IMMUNIZATIONS No Known Immunizations SOCIAL HISTORY Never Assessed REASON FOR VISIT Blood in stool x 1 week -- marlena ruelas PLAN OF CARE Activity Details Follow Up prn Reason: VITAL SIGNS Height 78 in 2017-06-30 Weight 464.0 lbs 2017-06-30 Temperature 97.0 degrees Fahrenheit 2017-06-30 BMI 53.61 kg/m2 2017-06-30 Blood pressure systolic 138 mmHg 2017-06-30 Blood pressure diastolic 98 mmHg 2017-06-30 MEDICATIONS Medication Instructions Dosage Frequency Start Date End Date Duration S tatus Paxil 20 MG Orally Once a day 1 tablet in the morning 24h 30 day(s) Active Rectacaine 0.25-3-14-71.9 % Rectal 2 times a day 1 application as n eeded 12h June, June, 07 days Active Allopurinol 300MG Orally Once a day-appt needed for additional r efills 1 tablet 30 Active Atorvastatin Calcium 80 mg Orally Once a day 1/2 tablet 24h 30 Active Lisinopril 20 mg Orally Once a day take tablet by Oral route 1 time per day 24h Active RESULTS No Results PROCEDURES No Known procedures INSTRUCTIONS MEDICATIONS ADMINISTERED No Known Medications MEDICAL (GENERAL) HISTORY Type Description Date Medical History hypertension 2006 Medical History hyperlipidemia 2006 Medical History obesity Medical History chronic pain 2007 Medical History [id number] Medical History depression Medical History Bipolar disorder, unspecified Medical History Bipolar disorder, unspecified Surgical History Birthmark removed from right side of nos e Hospitalization History depression 03/2014 Hospitalization History depression 04/2014
--- OUTSIDE RECORDS SUMMARY | 2019-03-01 00:26 | XMS REPORT ---
Author Author Mansoor SALAS Organization [facility] Address [address] [place] [address] Care Team Providers Care Shipfitters Supervisor Name Role Phone JORDAN SALAS Unavailable PROBLEMS Type Condition ICD9-CM Code [id number] Code Onset Dates Condition S tatus SNOMED Code Problem Obsessive-compulsive disorders F42.9 Active 483219291 Problem Gout M10.9 Active 57110831 Problem Benign hypertension I10 Active 73900149 Problem Chronic depression F32.9 Active 1 20372330 Problem BELLA (generalized anxiety disorder) F41.1 Active 58172093 Problem Severe episode of recurrent major depressive disorder, without psychotic features F33.2 Active 74412148 Problem Mixed hyperlipidemia E78.2 Active 599644585 Problem Abnormal results of thyroid function studies R94.6 Active 262368382 Problem Acute left-sided low back pain with left-sided sciatica M54.42 Active 205806808 Problem Acute midline low back pain with left-sided sciatica M54.42 Active 954719694 ALLERGIES Substance Reaction Event Type Date Status Azithromycin nausea Drug Allergy Apr, Active ENCOUNTERS Encounter Location Date Diagnosis [place] [address] [facility] [id number] [address] [place] [address] Aug, [place] [address] [address] [facility] [id number] [address] [place] [address] Jul, BMI 50.0-59.9, adult Z68.43 ; BELLA (generalized anxiety disorder) F41.1 and Severe episode of recurrent major depressive disorder, without psychotic features F33.2 [facility] [address] [facility] [id number] [address] [place] [address] June, [facility] [address] [facility] [id number] [address] [place] [address] June, Blood in the stool K92.1 and BMI 50.0-59.9, adult Z68.43 [place] [address] [address] May, [place] [address] [address] Apr, Chronic depression F32.9 ; B enign hypertension I10 ; Mixed hyperlipidemia E78.2 ; Gout M10.9 and BMI 50.0-59.9, adult Z68.43 [place] [address] [address] Mar, Mixed hyperlipidemia E78.2 ; Benign hypertension I10 and Gout M10.9 [place] [address] [address] Mar, Mixed hyperlipidemia E78.2 ; Gout M10.9 and Benign hypertension I10 [facility] [place] [address] [address] Jan, Acute left-sided low back pa in with left-sided sciatica M54.42 and BMI 50.0-59.9, adult Z68.43 [facility] [place] [address] [address] 22 Oct, 2016 Acute midline low back pain with left-sided sciatica M54.42 [place] [address] [address] Oct, [place] [address] [address] 13 Oct, 2016 Chronic depression F32.9 ; B enign hypertension I10 ; Mixed hyperlipidemia E78.2 and Gout M10.9 [place] [address] [address] Sep, Chronic depression F32.9 ; B enign hypertension I10 ; Mixed hyperlipidemia E78.2 and Gout M10.9 [place] [address] [address] June, Chronic depression F32.9 ; G out M10.9 ; Benign hypertension I10 ; Obsessive-compulsive disorders F42.9 and Mixed hyperlipidemia E78.2 [facility] [address] [place] [id number] [place] [address] May, Gout M10.9 ; Mixed hyperlipi demia E78.2 and Benign hypertension I10 [facility] [address] [place] [id number] [place] [address] Apr, Chronic depression F32.9 ; G out M10.9 ; Benign hypertension I10 ; Obsessive-compulsive disorders F42.9 ; Abnormal results of thyroid function studies R94.6 and Mixed hyperlipidemia E78.2 [facility] [address] [place] [id number] [place] [address] Apr, [facility] [address] [address] Apr, [facility] [address] [place] [id number] [place] [address] Jan, [facility] [address] [address] Dec, [facility] [address] [place] [id number] [place] [address] Oct, [facility] [address] [place] [id number] [address] [place] [address] Sep, Anxiety state, unspecified 3 00.00 and Major depressive disorder, single episode, mild 296.21 [facility] [address] [place] [id number] [address] [place] [address] Sep, [facility] [address] [place] [id number] [address] [place] [address] Aug, [facility] [address] [place] [id number] [address] [place] [address] Jul, [facility] [address] [place] [id number] [place] [address] [place] [address] June, Anxiety state, unspecified 3 00.00 and Depressive disorder, not elsewhere classified 311 [facility] [address] [id number] [address] [place] [address] June, [facility] [address] [id number] [address] [place] [address] June, Abnormal thyroid blood test 794.5 [facility] [address] [id number] [address] [place] [address] May, [facility] [address] [id number] [address] [place] [address] May, [facility] [address] [id number] [address] [place] [address] Apr, [facility] [address] [id number] [address] [place] [address] Apr, [facility] [address] [id number] [address] [place] [address] Apr, [facility] [address] [id number] [address] [place] [address] Apr, [facility] [address] [id number] [address] [place] [address] Apr, [facility] [address] [id number] [address] [place] [address] Apr, [facility] [address] [id number] [address] [place] [address] Apr, [facility] [address] [id number] [address] [place] [address] Apr, [facility] [address] [id number] [address] [place] [address] Apr, [facility] [address] [id number] [address] [place] [address] Apr, [facility] [place] [facility] [address] [id number] [address] [place] [address], [place] [address] Apr, [facility] [address] [id number] [address] [place] [address], [place] [address] Apr, [facility] [address] [id number] [address] [place] [address], [place] [address] Apr, [facility] [address] [id number] [address] [place] [address], [place] [address] Apr, [facility] [address] [id number] [address] [place] [address], [place] [address] Apr, [facility] [address] [id number] [address] [place] [address], [place] [address] Apr, [facility] [address] [id number] [address] [place] [address], [place] [address] Mar, [facility] [address] [id number] [address] [place] [address], [place] [address] Mar, [facility] [address] [id number] [address] [place] [address], [place] [address] Mar, [facility] [address] [id number] [address] [place] [address], [place] [address] Mar, [facility] [address] [id number] [address] [place] [address], [place] [address] Mar, [facility] [address] [id number] [address] [place] [address], [place] [address] Mar, [facility] [address] [id number] [address] [place] [address], [place] [address] Mar, [facility] [place] [facility] [address] [id number] [address] [place] [address], [place] [address] Mar, [facility] [place] [facility] [address] [id number] [address] [place] [address], [place] [address] Nov, [facility] [place] [facility] [address] [id number] [address] [place] [address], [place] [address] Nov, [facility] [address] [facility] [id number] [address] [address] Nov, [facility] [address] [facility] [id number] [address] [place] [phone] Nov, [facility] [address] [facility] [id number] [address] [place] [address] Nov, IMMUNIZATIONS No Known Immunizations SOCIAL HISTORY Never Assessed REASON FOR VISIT Depression/HTN--tjanssenMA, --had a couple spells of trouble walking with her ne rves. , --wants general labs , --depression medications may not be working as we ll as he would like , --c/o weight gain and not sure how to stop it. PLAN OF CARE Activity Details Follow Up 6 Months, prn Reason:BP VITAL SIGNS Height 78 in 2017-05-05 Weight 465.8 lbs 2017-05-05 Temperature 98.4 degrees Fahrenheit 2017-05-05 Heart Rate 86 bpm 2017-05-05 Respiratory Rate 20 2017-05-05 BMI 53.82 kg/m2 2017-05-05 Blood pressure systolic 132 mmHg 2017-05-05 Blood pressure diastolic 84 mmHg 2017-05-05 MEDICATIONS Medication Instructions Dosage Frequency Start Date End Date Duration S tatus Atorvastatin Calcium 80 mg Orally Once a day 1/2 tablet 24h 30 Active Paxil 20 MG Orally Once a day 1 tablet in the morning 24h 30 day(s) Active Lisinopril 20 mg Orally Once a day take tablet by Oral route 1 time per day 24h 30 Active Allopurinol 300MG Orally Once a day-appt needed for additional r efills 1 tablet 30 Active RESULTS No Results PROCEDURES No Known procedures INSTRUCTIONS MEDICATIONS ADMINISTERED No Known Medications MEDICAL (GENERAL) HISTORY Type Description Date Medical History hypertension 2007 Medical History hyperlipidemia 2006 Medical History obesity Medical History chronic pain 2007 Medical History [id number] Medical History depression Medical History Bipolar disorder, unspecified Medical History Bipolar disorder, unspecified Surgical History Birthmark removed from right side of nos e Hospitalization History depression 03/2014 Hospitalization History depression 04/2014
--- OUTSIDE RECORDS SUMMARY | 2019-03-01 00:26 | XMS REPORT ---
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 Name Role Phone PANDA CARLOS Unavailable PROBLEMS Type Condition ICD9-CM Code ENG82-GG Code Onset Dates Condition S tatus SNOMED Code Problem Obsessive-compulsive disorders F42.9 Active 635988935 Problem Gout M10.9 Active 48439481 Problem Benign hypertension I10 Active 63521885 Problem Chronic depression F32.9 Active 1 80565571 Problem BELLA (generalized anxiety disorder) F41.1 Active 80032012 Problem Severe episode of recurrent major depressive disorder, without psychotic features F33.2 Active 68428533 Problem Mixed hyperlipidemia E78.2 Active 231874206 Problem Abnormal results of thyroid function studies R94.6 Active 489949791 Problem Acute left-sided low back pain with left-sided sciatica M54.42 Active 549371479 Problem Acute midline low back pain with left-sided sciatica M54.42 Active 151908078 ALLERGIES Substance Reaction Event Type Date Status Azithromycin nausea Drug Allergy Sep, Active ENCOUNTERS Encounter Location Date Diagnosis [facility] [address] [facility] [id number] [address] [place] [address] Oct, [facility] [address] [place] [id number] [address] [place] [address] Sep, Severe episode of recurrent major depressive disorder, without psychotic features F33.2 ; BELLA (generalized anxiety disorder) F41.1 and BMI 50.0-59.9, adult Z68.43 [facility] [address] [facility] [id number] [address] [place] [address] Sep, [facility] [address] [facility] [id number] [address] [place] [address] Sep, Severe episode of recurrent major depressive disorder, without psychotic features F33.2 [place] [address] [place] [id number] [place] [address] Sep, Skin disorder L98.9 and BMI 50.0-59.9, adult Z68.43 [place] [address] [place] [id number] [place] [address] Sep, Benign hypertension I10 ; Ab scess L02.91 ; Gout M10.9 ; Mixed hyperlipidemia E78.2 and BMI 50.0-59.9, adult Z68.43 [place] [address] [address] Aug, Severe episode of recurrent major depressive disorder, without psychotic features F33.2 ; BELLA (generalized anxiety disorder) F41.1 and BMI 50.0-59.9, adult Z68.43 [place] [address] [address] Jul, BMI 50.0-59.9, adult Z68.43 ; BELLA (generalized anxiety disorder) F41.1 and Severe episode of recurrent major depressive disorder, without psychotic features F33.2 [place] [address] [address] June, [place] [address] [place] [id number] [place] [address] June, Blood in the stool K92.1 and BMI 50.0-59.9, adult Z68.43 [place] [address] [place] [id number] [place] [address] May, [place] [address] [place] [id number] [place] [address] Apr, Chronic depression F32.9 ; B enign hypertension I10 ; Mixed hyperlipidemia E78.2 ; Gout M10.9 and BMI 50.0-59.9, adult Z68.43 [place] [address] [place] [id number] [place] [address] Mar, Mixed hyperlipidemia E78.2 ; Benign hypertension I10 and Gout M10.9 [facility] [address] [place] [address] Mar, Mixed hyperlipidemia E78.2 ; Gout M10.9 and Benign hypertension I10 [facility] [address] [place] [id number] [address] [place] [address] Jan, Acute left-sided low back pa in with left-sided sciatica M54.42 and BMI 50.0-59.9, adult Z68.43 [facility] [address] [place] [id number] [place] [address] 22 Oct, 2016 Acute midline low back pain with left-sided sciatica M54.42 [place] [address] [place] [id number] [place] [address] 20 Oct, 2016 [place] [address] [address] 13 Oct, 2016 Chronic depression F32.9 ; B enign hypertension I10 ; Mixed hyperlipidemia E78.2 and Gout M10.9 [place] [address] [address] Sep, Chronic depression F32.9 ; B enign hypertension I10 ; Mixed hyperlipidemia E78.2 and Gout M10.9 [place] [address] [address] June, Chronic depression F32.9 ; G out M10.9 ; Benign hypertension I10 ; Obsessive-compulsive disorders F42.9 and Mixed hyperlipidemia E78.2 [place] [address] [place] [id number] [address] [place] [address] May, Gout M10.9 ; Mixed hyperlipi demia E78.2 and Benign hypertension I10 [place] [address] [place] [id number] [address] [place] [address] Apr, Chronic depression F32.9 ; G out M10.9 ; Benign hypertension I10 ; Obsessive-compulsive disorders F42.9 ; Abnormal results of thyroid function studies R94.6 and Mixed hyperlipidemia E78.2 [facility] [address] [facility] [id number] [address] [place] [address] Apr, [facility] [address] [id number] [address] [place] [address] Apr, [facility] [address] [id number] [address] [place] [address] Jan, [facility] [address] [id number] [address] [place] [address] Dec, [facility] [address] [facility] [id number] [address] [place] [address] Oct, [facility] [address] [facility] [id number] [address] [place] [address] Sep, Anxiety state, unspecified 3 00.00 and Major depressive disorder, single episode, mild 296.21 [facility] [address] [id number] [address] [place] [address] Sep, [facility] [address] [facility] [id number] [address] [place] [address] Aug, [facility] [address] [facility] [id number] [address] [place] [address] Jul, [facility] [address] [facility] [id number] [address] [place] [address] June, Anxiety state, unspecified 3 00.00 and Depressive disorder, not elsewhere classified 311 [facility] [address] [id number] [address] [place] [address] June, [facility] [address] [facility] [id number] [address] [place] [address] June, Abnormal thyroid blood test 794.5 [facility] [address] [facility] [id number] [address] [place] [address] May, [facility] [address] [id number] [address] [place] [address], [place] [address] 13 May, 2014 [facility] [address] [id number] [address] [place] [address], [place] [address] 24 Apr, 2014 [facility] [address] [id number] [address] [place] [address], [place] [address] 24 Apr, 2014 [facility] [address] [id number] [address] [place] [address], [place] [address] 23 Apr, 2014 [facility] [address] [id number] [address] [place] [address], [place] [address] 23 Apr, 2014 [facility] [address] [id number] [address] [place] [address], [place] [address] Apr, [facility] [address] [id number] [address] [place] [address], [place] [address] Apr, [facility] [address] [id number] [address] [place] [address], [place] [address] 17 Apr, 2014 [facility] [address] [id number] [address] [place] [address], [place] [address] 17 Apr, 2014 [facility] [address] [id number] [address] [place] [address], [place] [address] 24 Apr, 2014 [facility] [address] [id number] [address] [place] [address], [place] [address] 24 Apr, 2014 [facility] [address] [id number] [address] [place] [address], [place] [address] 24 Apr, 2014 [facility] [address] [id number] [address] [place] [address], [place] [address] 24 Apr, 2014 [facility] [address] [id number] [address] [place] [address], [place] [address] 04 Apr, 2014 [facility] [address] [id number] [address] [place] [address], [place] [address] 04 Apr, 2014 [facility] [address] [id number] [address] [place] [address], [place] [address] Apr, [facility] [address] [id number] [address] [place] [address] Apr, [facility] [address] [id number] [address] [place] [address] Mar, [facility] [address] [id number] [address] [place] [address] Mar, [facility] [address] [id number] [address] [place] [address] Mar, [facility] [address] [id number] [address] [place] [address] Mar, [facility] [address] [id number] [address] [place] [address] Mar, [facility] [address] [id number] [address] [place] [address] Mar, [facility] [address] [id number] [address] [place] [address] Mar, [facility] [address] [id number] [address] [place] [address] Mar, [facility] [address] [id number] [address] [place] [address] Nov, [facility] [address] [id number] [address] [place] [address] Nov, [facility] [address] [id number] [address] [place] [address] Nov, [facility] [address] [id number] [address] [place] [address] Nov, [facility] [address] [id number] [address] [place] [address] Nov, IMMUNIZATIONS No Known Immunizations SOCIAL HISTORY Never Assessed REASON FOR VISIT Establish Care--tcuppettRN, Red raised knot on left shoulder that is tender to t ouch PLAN OF CARE Activity Details Follow Up 2 Weeks Reason:lesion Future/Pending Procedure I & D SIMPLE ABSCESS VITAL SIGNS Height 78 in 2017-09-30 Weight 458.7 lbs 2017-09-30 Temperature 98.1 degrees Fahrenheit 2017-09-30 Heart Rate 90 bpm 2017-09-30 Respiratory Rate 20 2017-09-30 BMI 53.00 kg/m2 2017-09-30 Blood pressure systolic 128 mmHg 2017-09-30 Blood pressure diastolic 82 mmHg 2017-09-30 MEDICATIONS Medication Instructions Dosage Frequency Start Date End Date Duration S tatus Lisinopril 20 mg Orally Once a day take tablet by Oral route 1 time per day 24h Active Paxil 40 MG Orally Once a day 1 tablet 24h A ctive Allopurinol 300MG Orally Once a day-appt needed for additional r efills 1 tablet Active Zyrtec Allergy 10 MG Orally Once a day 1 tablet 24h Active Wellbutrin XL 150 MG Orally Once a day 1 tablet every morn ing for one week then take 2 tablets every morning 24h Aug, 30 day(s) Active Cephalexin 500 mg Orally 3 times a day 1 capsule 8h Sep, 8 Sep, 05 days Active Atorvastatin Calcium 80MG TAKE ONE-HALF TABLET BY MOUTH ONCE BETZY LY Active Aleve 220 MG Orally every 12 hrs 1 capsule with food or milk as needed 12h Active Tylenol 1 tab Active RESULTS No Results PROCEDURES Procedure Date Ordered Result Body Site DRAINAGE OF SKIN ABSCESS Sep 30, 2017 INSTRUCTIONS MEDICATIONS ADMINISTERED No Known Medications MEDICAL (GENERAL) HISTORY Type Description Date Medical History hypertension 2007 Medical History hyperlipidemia 2006 Medical History obesity Medical History chronic pain 2007 Medical History [id number] Medical History depression Medical History Bipolar disorder, unspecified Medical History Bipolar disorder, unspecified Surgical History Birthmark removed from right side of nos e Hospitalization History depression 03/2014 Hospitalization History depression 04/2014
--- OUTSIDE RECORDS SUMMARY | 2019-03-01 00:26 | XMS REPORT ---
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 Name Role Phone GRACE DEVINE Unavailable PROBLEMS Type Condition ICD9-CM Code ELD89-HG Code Onset Dates Condition S tatus SNOMED Code Problem Obsessive-compulsive disorders F42.9 Active 450137920 Problem Gout M10.9 Active 11713697 Problem Benign hypertension I10 Active 00500198 Problem Chronic depression F32.9 Active 1 98734831 Problem BELLA (generalized anxiety disorder) F41.1 Active 28289734 Problem Severe episode of recurrent major depressive disorder, without psychotic features F33.2 Active 64594946 Problem Mixed hyperlipidemia E78.2 Active 831911413 Problem Abnormal results of thyroid function studies R94.6 Active 606792838 Problem Acute left-sided low back pain with left-sided sciatica M54.42 Active 840872644 Problem Acute midline low back pain with left-sided sciatica M54.42 Active 174449713 ALLERGIES Substance Reaction Event Type Date Status Azithromycin nausea Drug Allergy Jul, Active ENCOUNTERS Encounter Location Date Diagnosis [place] [address] [facility] [id number] [address] [place] [address] Oct, [facility] [address] [place] [id number] [address] [place] [address] Sep, Severe episode of recurrent major depressive disorder, without psychotic features F33.2 ; BELLA (generalized anxiety disorder) F41.1 and BMI 50.0-59.9, adult Z68.43 [facility] [address] [facility] [id number] [address] [place] [address] Sep, [facility] [address] [facility] [id number] [address] [place] [address] Sep, Severe episode of recurrent major depressive disorder, without psychotic features F33.2 [place] [address] [address] Sep, Skin disorder L98.9 and BMI 50.0-59.9, adult Z68.43 [place] [address] [place] [id number] [place] [address] Sep, Benign hypertension I10 ; Ab scess L02.91 ; Gout M10.9 ; Mixed hyperlipidemia E78.2 and BMI 50.0-59.9, adult Z68.43 [place] [address] [address] Aug, Severe episode of recurrent major depressive disorder, without psychotic features F33.2 ; BELLA (generalized anxiety disorder) F41.1 and BMI 50.0-59.9, adult Z68.43 [place] [address] [address] Jul, BMI 50.0-59.9, adult Z68.43 ; BELLA (generalized anxiety disorder) F41.1 and Severe episode of recurrent major depressive disorder, without psychotic features F33.2 [place] [address] [address] June, [place] [address] [place] [id number] [place] [address] June, Blood in the stool K92.1 and BMI 50.0-59.9, adult Z68.43 [place] [address] [address] May, [place] [address] [place] [id number] [place] [address] Apr, Chronic depression F32.9 ; B enign hypertension I10 ; Mixed hyperlipidemia E78.2 ; Gout M10.9 and BMI 50.0-59.9, adult Z68.43 [place] [address] [address] Mar, Mixed hyperlipidemia E78.2 ; Benign hypertension I10 and Gout M10.9 [facility] [address] [facility] [id number] [address] [place] [address] Mar, Mixed hyperlipidemia E78.2 ; Gout M10.9 and Benign hypertension I10 [facility] [address] [facility] [id number] [address] [place] [address] Jan, Acute left-sided low back pa in with left-sided sciatica M54.42 and BMI 50.0-59.9, adult Z68.43 [facility] [address] [facility] [id number] [address] [place] [address] 22 Oct, 2016 Acute midline low back pain with left-sided sciatica M54.42 [place] [address] [place] [id number] [address] [place] [address] 20 Oct, 2016 [place] [address] [address] 13 Oct, 2016 Chronic depression F32.9 ; B enign hypertension I10 ; Mixed hyperlipidemia E78.2 and Gout M10.9 [place] [address] [address] Sep, Chronic depression F32.9 ; B enign hypertension I10 ; Mixed hyperlipidemia E78.2 and Gout M10.9 [place] [address] [place] [id number] [address] [place] [address] June, Chronic depression F32.9 ; G out M10.9 ; Benign hypertension I10 ; Obsessive-compulsive disorders F42.9 and Mixed hyperlipidemia E78.2 [place] [address] [facility] [id number] [address] [place] [address] May, Gout M10.9 ; Mixed hyperlipi demia E78.2 and Benign hypertension I10 [place] [address] [facility] [id number] [address] [place] [address] Apr, Chronic depression F32.9 ; G out M10.9 ; Benign hypertension I10 ; Obsessive-compulsive disorders F42.9 ; Abnormal results of thyroid function studies R94.6 and Mixed hyperlipidemia E78.2 [facility] [address] [id number] [address] [place] [address] Apr, [facility] [address] [id number] [address] [place] [address] Apr, [facility] [address] [id number] [address] [place] [address] Jan, [facility] [address] [id number] [address] [place] [address] Dec, [facility] [address] [id number] [address] [place] [address] Oct, [facility] [address] [facility] [id number] [address] [place] [address] Sep, Anxiety state, unspecified 3 00.00 and Major depressive disorder, single episode, mild 296.21 [facility] [address] [id number] [address] [place] [address] Sep, [facility] [address] [id number] [address] [place] [address] Aug, [facility] [address] [facility] [id number] [address] [place] [address] Jul, [facility] [address] [id number] [address] [place] [address] June, Anxiety state, unspecified 3 00.00 and Depressive disorder, not elsewhere classified 311 [facility] [address] [id number] [address] [place] [address] June, [facility] [address] [facility] [id number] [address] [place] [address] June, Abnormal thyroid blood test 794.5 [facility] [address] [facility] [id number] [address] [place] [address] May, [facility] [address] [id number] [address] [place] [address], [place] [address] 13 May, 2014 [facility] [address] [id number] [address] [place] [address], [place] [address] 24 Apr, 2014 [facility] [address] [id number] [address] [place] [address], [place] [address] 24 Apr, 2014 [facility] [address] [id number] [address] [place] [address], [place] [address] 23 Apr, 2014 [facility] [address] [id number] [address] [place] [address], [place] [address] 23 Apr, 2014 [facility] [address] [id number] [address] [place] [address], [place] [address] 19 Apr, 2014 [facility] [address] [id number] [address] [place] [address], [place] [address] 19 Apr, 2014 [facility] [address] [id number] [address] [place] [address], [place] [address] 17 Apr, 2014 [facility] [address] [id number] [address] [place] [address], [place] [address] 17 Apr, 2014 [facility] [address] [id number] [address] [place] [address], [place] [address] 24 Apr, 2014 [facility] [address] [id number] [address] [place] [address], [place] [address] Apr, 2014 [facility] [address] [id number] [address] [place] [address], [place] [address] 24 Apr, 2014 [facility] [address] [id number] [address] [place] [address], [place] [address] 24 Apr, 2014 [facility] [address] [id number] [address] [place] [address], [place] [address] 04 Apr, 2014 [facility] [address] [id number] [address] [place] [address], [place] [address] 04 Apr, 2014 [facility] [address] [id number] [address] [place] [address], [place] [address] Apr, [facility] [address] [id number] [address] [place] [address] Apr, [facility] [address] [id number] [address] [place] [address] Mar, [facility] [address] [id number] [address] [place] [address] Mar, [facility] [address] [id number] [address] [place] [address] Mar, [facility] [address] [id number] [address] [place] [address] Mar, [facility] [address] [id number] [address] [place] [address] Mar, [facility] [address] [id number] [address] [place] [address] Mar, [facility] [address] [id number] [address] [place] [address] Mar, [facility] [address] [id number] [address] [place] [address] Mar, [facility] [address] [id number] [address] [place] [address] Nov, [facility] [address] [id number] [address] [place] [address] Nov, [facility] [address] [id number] [address] [place] [address] Nov, [facility] [address] [id number] [address] [place] [address] Nov, [facility] [address] [id number] [address] [place] [address] Nov, IMMUNIZATIONS No Known Immunizations SOCIAL HISTORY Never Assessed REASON FOR VISIT yaakov - Paloma LONDONO PLAN OF CARE Activity Details Follow Up 6 Weeks, prn Reason: VITAL SIGNS Height 78 in 2017-08-06 Weight 460 lbs 2017-08-06 Heart Rate 106 bpm 2017-08-06 Respiratory Rate 20 2017-08-06 Oximetry on room air:95 % 2017-08-06 BMI 53.15 kg/m2 2017-08-06 Blood pressure systolic 120 mmHg 2017-08-06 Blood pressure diastolic 90 mmHg 2017-08-06 MEDICATIONS Medication Instructions Dosage Frequency Start Date End Date Duration S tatus Atorvastatin Calcium 80 mg Orally Once a day 1/2 tablet 24h 30 Active Tylenol 1 tab Active Lisinopril 20 mg Orally Once a day take tablet by Oral route 1 time per day 24h Active Aleve 220 MG Orally every 12 hrs 1 capsule with food or milk as needed 12h Active Zyrtec Allergy 10 MG Orally Once a day 1 tablet 24h Active Paxil 40 MG Orally Once a day 1 tablet 24h 30 days A ctive Allopurinol 300MG Orally Once a day-appt needed for additional r efills 1 tablet 30 Active RESULTS No Results PROCEDURES No Known procedures INSTRUCTIONS MEDICATIONS ADMINISTERED No Known Medications MEDICAL (GENERAL) HISTORY Type Description Date Medical History hypertension 2006 Medical History hyperlipidemia 2006 Medical History obesity Medical History chronic pain 2007 Medical History [id number] Medical History depression Medical History Bipolar disorder, unspecified Medical History Bipolar disorder, unspecified Surgical History Birthmark removed from right side of nos e Hospitalization History depression 03/2014 Hospitalization History depression 04/2014
--- OUTSIDE RECORDS SUMMARY | 2019-03-01 00:26 | XMS REPORT ---
Author Author Mansoor Obrien Organization [facility] [place] Address [address] [address] Care Team Providers Care Wastewater Analyst Lab Analyst Name Role Phone RICHARD Obrien Unavailable PROBLEMS Type Condition ICD9-CM Code [id number] Code Onset Dates Condition S tatus SNOMED Code Problem Obsessive-compulsive disorders F42.9 Active 364367775 Problem Gout M10.9 Active 28094715 Problem Benign hypertension I10 Active 80424242 Problem Chronic depression F32.9 Active 1 21939123 Problem BELLA (generalized anxiety disorder) F41.1 Active 16638439 Problem Severe episode of recurrent major depressive disorder, without psychotic features F33.2 Active 76879018 Problem Mixed hyperlipidemia E78.2 Active 250736550 Problem Abnormal results of thyroid function studies R94.6 Active 824908169 Problem Acute left-sided low back pain with left-sided sciatica M54.42 Active 056139563 Problem Acute midline low back pain with left-sided sciatica M54.42 Active 849042536 ALLERGIES No Information ENCOUNTERS Encounter Location Date Diagnosis [place] [address] [facility]NOTE 3] [id number] [address] [place] [phone] Sep, [place] [address] [place] [id number] [address] [place] [phone] Sep, [place] [address] [facility]NOTE 3] [id number] [address] [place] [address] Sep, Benign hypertension I10 ; Ab scess L02.91 ; Gout M10.9 ; Mixed hyperlipidemia E78.2 and BMI 50.0-59.9, adult Z68.43 [place] [address] [facility]NOTE 3] [id number] [address] [place] [address] Aug, Severe episode of recurrent major depressive disorder, without psychotic features F33.2 ; BELLA (generalized anxiety disorder) F41.1 and BMI 50.0-59.9, adult Z68.43 [place] [address] [address] Jul, 2018 BMI 50.0-59.9, adult Z68.43 ; BELLA (generalized anxiety disorder) F41.1 and Severe episode of recurrent major depressive disorder, without psychotic features F33.2 [place] [address] [address] June, [place] [address] [address] June, Blood in the stool K92.1 and BMI 50.0-59.9, adult Z68.43 [place] [address] [address] May, [place] [address] [address] Apr, Chronic depression F32.9 ; B enign hypertension I10 ; Mixed hyperlipidemia E78.2 ; Gout M10.9 and BMI 50.0-59.9, adult Z68.43 [place] [address] [address] Mar, Mixed hyperlipidemia E78.2 ; Benign hypertension I10 and Gout M10.9 [place] [address] [address] Mar, Mixed hyperlipidemia E78.2 ; Gout M10.9 and Benign hypertension I10 [facility] [address] [place] [id number] [place] [address] Jan, Acute left-sided low back pa in with left-sided sciatica M54.42 and BMI 50.0-59.9, adult Z68.43 [facility] [address] [place] [id number] [place] [address] Oct, Acute midline low back pain with left-sided sciatica M54.42 [place] [address] [address] Oct, [place] [address] [address] Oct, Chronic depression F32.9 ; B enign hypertension I10 ; Mixed hyperlipidemia E78.2 and Gout M10.9 [place] [address] [address] Sep, Chronic depression F32.9 ; B enign hypertension I10 ; Mixed hyperlipidemia E78.2 and Gout M10.9 [place] [address] [address] June, Chronic depression F32.9 ; G out M10.9 ; Benign hypertension I10 ; Obsessive-compulsive disorders F42.9 and Mixed hyperlipidemia E78.2 [place] [address] [address] May, Gout M10.9 ; Mixed hyperlipi demia E78.2 and Benign hypertension I10 [place] [address] [address] Apr, Chronic depression F32.9 ; G out M10.9 ; Benign hypertension I10 ; Obsessive-compulsive disorders F42.9 ; Abnormal results of thyroid function studies R94.6 and Mixed hyperlipidemia E78.2 [place] [address] [address] Apr, [place] [address] [address] Apr, [place] [address] [address] Jan, [place] [address] [address] Dec, [place] [address] [address] Oct, [facility] [address] [id number] [address] [place] [address] Sep, Anxiety state, unspecified 3 00.00 and Major depressive disorder, single episode, mild 296.21 [facility] [address] [id number] [address] [place] [address] Sep, [facility] [address] [id number] [address] [place] [address] Aug, [facility] [address] [id number] [address] [place] [address] Jul, [facility] [address] [id number] [address] [place] [address] June, Anxiety state, unspecified 3 00.00 and Depressive disorder, not elsewhere classified 311 [facility] [address] [id number] [address] [place] [address] June, [facility] [address] [id number] [address] [place] [address] June, Abnormal thyroid blood test 794.5 [facility] [address] [id number] [address] [place] [address] May, [facility] [address] [id number] [address] [place] [address] May, [facility] [address] [id number] [address] [place] [address] Apr, [facility] [address] [id number] [address] [place] [phone] Apr, [facility] [address] [id number] [address] [place] [address] Apr, [facility] [address] [id number] [address] [place] [address] Apr, [facility] [address] [id number] [address] [place] [phone] Apr, [facility] [address] [id number] [address] [place] [address], [place] [address] Apr, [facility] [address] [id number] [address] [place] [address], [place] [address] Apr, [facility] [address] [id number] [address] [place] [address], [place] [address] Apr, [facility] [address] [id number] [address] [place] [address], [place] [address] Apr, [facility] [address] [id number] [address] [place] [address], [place] [address] Apr, [facility] [address] [id number] [address] [place] [address], [place] [address] Apr, [facility] [address] [id number] [address] [place] [address], [place] [address] Apr, [facility] [address] [id number] [address] [place] [address], [place] [address] Apr, [facility] [address] [id number] [address] [place] [address], [place] [address] Apr, [facility] [address] [id number] [address] [place] [address], [place] [address] Apr, [facility] [address] [id number] [address] [place] [address], [place] [address] Apr, [facility] [address] [id number] [address] [place] [address], [place] [address] Mar, [facility] [address] [id number] [address] [place] [address], [place] [address] Mar, [facility] [address] [id number] [address] [place] [address], [place] [address] Mar, [facility] [address] [id number] [address] [place] [address], [place] [address] Mar, [facility] [address] [id number] [address] [place] [address] Mar, [facility] [address] [id number] [address] [place] [address] Mar, [facility] [address] [id number] [address] [place] [address] Mar, [facility] [address] [id number] [address] [place] [address] Mar, [facility] [address] [id number] [address] [place] [address] Nov, [facility] [address] [id number] [address] [place] [address] Nov, [facility] [address] [id number] [address] [place] [address] Nov, [facility] [address] [id number] [address] [place] [address] Nov, [facility] [address] [id number] [address] [place] [address] Nov, IMMUNIZATIONS No Known Immunizations SOCIAL HISTORY Never Assessed REASON FOR VISIT medication question PLAN OF CARE VITAL SIGNS MEDICATIONS Medication Instructions Dosage Frequency Start Date End Date Duration S tatus Phenylephrine-Mineral Oil-Pet 0.25-14-71.9 % Rectal 3 times a day prn as directed June, June, 10 days Active RESULTS No Results PROCEDURES No Known procedures INSTRUCTIONS MEDICATIONS ADMINISTERED No Known Medications MEDICAL (GENERAL) HISTORY Type Description Date Medical History hypertension 2007 Medical History hyperlipidemia 2007 Medical History obesity Medical History chronic pain 2007 Medical History [id number] Medical History depression Medical History Bipolar disorder, unspecified Medical History Bipolar disorder, unspecified Surgical History Birthmark removed from right side of nos e Hospitalization History depression 03/2014 Hospitalization History depression 04/2014
--- OUTSIDE RECORDS SUMMARY | 2019-03-01 00:27 | XMS REPORT ---
Author Author Mansoor SALAS Organization [employer] Address Unknown Phone Unavailable Care Team Providers Care Contour Band Saw Operator Vertical Name Role Phone JORDAN SALAS CP Unavailable Allergies No Known Allergies Problems Problem Type Condition ICD-9 Code Onset Dates Condition Statu s Problem Obsessive-compulsive disorders 300.3 Active Problem Essential hypertension, benign 401.1 Active Problem Need for prophylactic vaccination and inoculation, Inf luenza V04.81 Active Problem Anxiety state, unspecified 300.00 A ctive Problem Depressive disorder, not elsewhere classified 311 Active Problem Abnormal thyroid blood test 794.5 Active Problem Other and unspecified hyperlipidemia 272.4 Active Problem Gout, unspecified 274.9 Active Problem Major depressive disorder, single episode, mild 296.21 Active Problem Lumbago 724.2 Active Problem Major depressive disorder, r ecurrent episode, severe, without mention of psychotic behavior 296.33 Active Problem Bipolar disorder, unspecified 296.80 Active Problem Major depressive disorder, recurrent episode, unspecif ied 296.30 Active Medications Medication Code System Code Instructions Start Date End Date Status Dosage Lisinopril [facility] [address]-35 20 MG May 23, 2014 take tablet by Oral route 1 time per day Results No Known Results Summary Purpose [employer] Submission
--- OUTSIDE RECORDS SUMMARY | 2019-03-01 00:27 | XMS REPORT ---
Author Author Mansoor SALAS Organization [facility] Address [address] [place] [address] Care Team Providers Care Wire Lather Name Role Phone JORDAN SALAS Unavailable PROBLEMS Type Condition ICD9-CM Code ZGQ29-CR Code Onset Dates Condition S tatus SNOMED Code Problem Obsessive-compulsive disorders F42.9 Active 142970189 Problem Chronic depression F32.9 Active 1 00220245 Problem Acute left-sided low back pain with left-sided sciatica M54.42 Active 116624565 Problem Acute midline low back pain with left-sided sciatica M54.42 Active 374696859 Problem Gout M10.9 Active 39106979 Problem Benign hypertension I10 Active 27519704 Problem Mixed hyperlipidemia E78.2 Active 056425717 Problem Abnormal results of thyroid function studies R94.6 Active 013509706 ALLERGIES No Information ENCOUNTERS Encounter Location Date Diagnosis [facility] [address] [address] May, [facility] [address] [address] Apr, Chronic depression F32.9 ; B enign hypertension I10 ; Mixed hyperlipidemia E78.2 ; Gout M10.9 and BMI 50.0-59.9, adult Z68.43 [facility] [address] [place] [id number] [place] [address] Mar, Mixed hyperlipidemia E78.2 ; Benign hypertension I10 and Gout M10.9 [facility] [address] [place] [id number] [place] [address] Mar, Mixed hyperlipidemia E78.2 ; Gout M10.9 and Benign hypertension I10 [facility] [address] [place] [id number] [place] [address] Jan, Acute left-sided low back pa in with left-sided sciatica M54.42 and BMI 50.0-59.9, adult Z68.43 [facility] [address] [address] Oct, Acute midline low back pain with left-sided sciatica M54.42 [facility] [address] [address] Oct, [place] [address] [address] 13 Oct, 2016 Chronic depression F32.9 ; B enign hypertension I10 ; Mixed hyperlipidemia E78.2 and Gout M10.9 [place] [address] [address] Sep, Chronic depression F32.9 ; B enign hypertension I10 ; Mixed hyperlipidemia E78.2 and Gout M10.9 [facility] [address] [address] June, Chronic depression F32.9 ; G out M10.9 ; Benign hypertension I10 ; Obsessive-compulsive disorders F42.9 and Mixed hyperlipidemia E78.2 [place] [address] [address] May, Gout M10.9 ; Mixed hyperlipi demia E78.2 and Benign hypertension I10 [place] [address] [address] Apr, Chronic depression F32.9 ; G out M10.9 ; Benign hypertension I10 ; Obsessive-compulsive disorders F42.9 ; Abnormal results of thyroid function studies R94.6 and Mixed hyperlipidemia E78.2 [place] [address] [address] Apr, [place] [address] [address] Apr, [facility] [address] [id number] [address] [place] [address] Jan, [facility] [address] [id number] [address] [place] [address] Dec, [facility] [address] [id number] [address] [place] [address] Oct, [facility] [address] [id number] [address] [place] [address] Sep, Anxiety state, unspecified 3 00.00 and Major depressive disorder, single episode, mild 296.21 [facility] [address] [id number] [address] [place] [address] Sep, [facility] [address] [id number] [address] [place] [address] Aug, [facility] [address] [id number] [address] [place] [address] Jul, [facility] [address] [id number] [address] [place] [address] June, Anxiety state, unspecified 3 00.00 and Depressive disorder, not elsewhere classified 311 [facility] [address] [id number] [address] [place] [address] June, [facility] [address] [id number] [address] [place] [address] June, Abnormal thyroid blood test 794.5 [facility] [address] [id number] [address] [place] [address] May, [facility] [address] [id number] [address] [place] [address] May, [facility] [address] [id number] [address] [place] [address] Apr, [facility] [address] [id number] [address] [place] [address] Apr, [facility] [address] [id number] [address] [place] [address], [place] [address] Apr, [facility] [address] [id number] [address] [place] [address], [place] [address] Apr, [facility] [address] [id number] [address] [place] [address], [place] [address] Apr, [facility] [address] [id number] [address] [place] [address], [place] [address] Apr, [facility] [address] [id number] [address] [place] [address], [place] [address] Apr, [facility] [address] [id number] [address] [place] [address], [place] [address] Apr, [facility] [address] [id number] [address] [place] [address], [place] [address] Apr, [facility] [address] [id number] [address] [place] [address], [place] [address] Apr, [facility] [address] [id number] [address] [place] [address], [place] [address] Apr, [facility] [address] [id number] [address] [place] [address], [place] [address] Apr, [facility] [address] [id number] [address] [place] [address], [place] [address] Apr, [facility] [address] [id number] [address] [place] [address] Apr, [facility] [address] [id number] [address] [place] [address], [place] [address] Apr, [facility] [address] [id number] [address] [place] [address], [place] [address] Apr, [facility] [address] [id number] [address] [place] [address], [place] [address] Mar, [facility] [address] [id number] [address] [place] [address] Mar, [facility] [address] [id number] [address] [place] [address] Mar, [facility] [address] [id number] [address] [place] [address] Mar, [facility] [address] [id number] [address] [place] [address] Mar, [facility] [address] [id number] [address] [place] [address] Mar, [facility] [address] [id number] [address] [place] [address] Mar, [facility] [address] [id number] [address] [place] [address] Mar, [facility] [address] [id number] [address] [place] [address] Nov, [facility] [address] [id number] [address] [place] [address] Nov, [facility] [address] [id number] [address] [place] [address] Nov, [facility] [address] [id number] [address] [place] [address] Nov, [facility] [address] [id number] [address] [place] [address] Nov, IMMUNIZATIONS No Known Immunizations SOCIAL HISTORY Never Assessed REASON FOR VISIT New Rx PLAN OF CARE VITAL SIGNS MEDICATIONS Medication Instructions Dosage Frequency Start Date End Date Duration S paulo Amitriptyline HCl 10 mg Orally Once a day at bedtime 1 tablet Oct, 30 day(s) Active RESULTS No Results PROCEDURES No Known procedures INSTRUCTIONS MEDICATIONS ADMINISTERED No Known Medications MEDICAL (GENERAL) HISTORY Type Description Date Medical History hypertension 2007 Medical History hyperlipidemia 2007 Medical History obesity Medical History chronic pain 2007 Medical History [id number] Medical History depression Medical History Bipolar disorder, unspecified Medical History Bipolar disorder, unspecified Surgical History Birthmark removed from right side of nos e Hospitalization History depression 03/2014 Hospitalization History depression 04/2014
--- OUTSIDE RECORDS SUMMARY | 2019-03-01 00:27 | XMS REPORT ---
Author Author Mansoor SALAS Organization [facility] Address [address] [place] [address] Care Team Providers Care Mint Wafer Depositor Name Role Phone JORDAN SALAS Unavailable PROBLEMS Type Condition ICD9-CM Code AZG26-DS Code Onset Dates Condition S tatus SNOMED Code Problem Obsessive-compulsive disorders F42.9 Active 683511002 Problem Acute midline low back pain with left-sided sciatica M54.42 Active 373804497 Problem Mixed hyperlipidemia E78.2 Active 302263161 Problem Benign hypertension I10 Active 56166138 Problem Chronic depression F32.9 Active 1 14750797 Problem Abnormal results of thyroid function studies R94.6 Active 293549735 Problem Gout M10.9 Active 47823106 ALLERGIES Substance Reaction Event Type Date Status Azithromycin nausea Drug Allergy Apr, Active SOCIAL HISTORY Never Assessed PLAN OF CARE VITAL SIGNS MEDICATIONS Medication Instructions Dosage Frequency Start Date End Date Duration S tatus Atorvastatin Calcium 80 TAKE 1/2 TABLET BY MOUTH EVERY NIGHT AT BEDTIME 30 Active Allopurinol 300MG Orally Once a day-appt needed for additional r efills 1 tablet 30 Active Lisinopril 20 mg Orally Once a day 1 tablet 24h Apr, Active RESULTS No Results PROCEDURES No Known procedures IMMUNIZATIONS No Known Immunizations MEDICAL (GENERAL) HISTORY Type Description Date Medical History hypertension 2007 Medical History hyperlipidemia 2007 Medical History obesity Medical History chronic pain 2008 Medical History [id number] Medical History depression Medical History Bipolar disorder, unspecified Medical History Bipolar disorder, unspecified Surgical History Birthmark removed from right side of nos e Hospitalization History depression 03/2014 Hospitalization History depression 04/2014
--- OUTSIDE RECORDS SUMMARY | 2019-03-01 00:27 | XMS REPORT ---
Author Author Mansoor SALAS Organization [facility] Address [address] [place] [address] Care Team Providers Care Electrical Machine Builder Name Role Phone JORDAN SALAS Unavailable PROBLEMS Type Condition ICD9-CM Code OHB27-IB Code Onset Dates Condition S tatus SNOMED Code Problem Obsessive-compulsive disorders F42.9 Active 602051682 Problem Gout M10.9 Active 82471231 Problem Benign hypertension I10 Active 44309509 Problem Chronic depression F32.9 Active 1 42370821 Problem BELLA (generalized anxiety disorder) F41.1 Active 38319735 Problem Severe episode of recurrent major depressive disorder, without psychotic features F33.2 Active 58611373 Problem Mixed hyperlipidemia E78.2 Active 408981663 Problem Abnormal results of thyroid function studies R94.6 Active 397198493 Problem Acute left-sided low back pain with left-sided sciatica M54.42 Active 736241702 Problem Acute midline low back pain with left-sided sciatica M54.42 Active 422947494 ALLERGIES No Information ENCOUNTERS Encounter Location Date Diagnosis [place] [address] [address] [facility] [id number] [address] [place] [address] Aug, [place] [address] [place] [id number] [address] [place] [address] Jul, BMI 50.0-59.9, adult Z68.43 ; BELLA (generalized anxiety disorder) F41.1 and Severe episode of recurrent major depressive disorder, without psychotic features F33.2 [place] [address] [facility] [id number] [address] [place] [address] June, [place] [address] [facility] [id number] [address] [place] [address] June, Blood in the stool K92.1 and BMI 50.0-59.9, adult Z68.43 [facility] [address] [address] May, [facility] [address] [address] Apr, Chronic depression F32.9 ; B enign hypertension I10 ; Mixed hyperlipidemia E78.2 ; Gout M10.9 and BMI 50.0-59.9, adult Z68.43 [facility] [address] [address] Mar, Mixed hyperlipidemia E78.2 ; Benign hypertension I10 and Gout M10.9 [place] [address] [address] Mar, Mixed hyperlipidemia E78.2 ; Gout M10.9 and Benign hypertension I10 [facility] WALK IN [facility] [address] [address] Jan, Acute left-sided low back pa in with left-sided sciatica M54.42 and BMI 50.0-59.9, adult Z68.43 [facility] WALK IN [facility] [address] [address] 22 Oct, 2016 Acute midline low back pain with left-sided sciatica M54.42 [place] [address] [address] Oct, [place] [address] [address] Oct, Chronic depression F32.9 ; B enign hypertension I10 ; Mixed hyperlipidemia E78.2 and Gout M10.9 [place] [address] [address] Sep, Chronic depression F32.9 ; B enign hypertension I10 ; Mixed hyperlipidemia E78.2 and Gout M10.9 [place] [address] [address] June, Chronic depression F32.9 ; G out M10.9 ; Benign hypertension I10 ; Obsessive-compulsive disorders F42.9 and Mixed hyperlipidemia E78.2 [facility] [address] [facility] [id number] [address] [place] [address] May, Gout M10.9 ; Mixed hyperlipi demia E78.2 and Benign hypertension I10 [facility] [address] [facility] [id number] [address] [place] [address] Apr, Chronic depression F32.9 ; G out M10.9 ; Benign hypertension I10 ; Obsessive-compulsive disorders F42.9 ; Abnormal results of thyroid function studies R94.6 and Mixed hyperlipidemia E78.2 [facility] [address] [place] [id number] [address] [place] [address] Apr, [facility] [address] [place] [id number] [address] [place] [address] Apr, [facility] [address] [place] [id number] [address] [place] [address] Jan, [facility] [address] [facility] [id number] [address] [place] [address] Dec, [facility] [address] [place] [id number] [address] [place] [address] Oct, [facility] [address] [place] [id number] [address] [place] [address] Sep, Anxiety state, unspecified 3 00.00 and Major depressive disorder, single episode, mild 296.21 [facility] [address] [facility] [id number] [address] [place] [address] Sep, [facility] [address] [facility] [id number] [address] [place] [address] Aug, [facility] [address] [facility] [id number] [address] [place] [address] Jul, [facility] [address] [place] [id number] [address] [place] [address] June, Anxiety state, unspecified 3 00.00 and Depressive disorder, not elsewhere classified 311 [facility] [address] [id number] [address] [place] [address] June, [facility] [address] [id number] [address] [place] [address] June, Abnormal thyroid blood test 794.5 [facility] [address] [id number] [address] [place] [address] May, [facility] [address] [id number] [address] [place] [address] May, [facility] [address] [id number] [address] [place] [address] Apr, [facility] [address] [id number] [address] [place] [address] Apr, [facility] [address] [id number] [address] [place] [address] Apr, [facility] [address] [id number] [address] [place] [address] Apr, [facility] [address] [id number] [address] [place] [address] Apr, [facility] [address] [id number] [address] [place] [address] Apr, [facility] [address] [id number] [address] [place] [address] Apr, [facility] [address] [id number] [address] [place] [address] Apr, [facility] [address] [id number] [address] [place] [address] Apr, [facility] [address] [id number] [address] [place] [address] Apr, [facility] [address] [id number] [address] [place] [address] Apr, [facility] [address] [id number] [address] [place] [address], [place] [address] Apr, [facility] [address] [id number] [address] [place] [address], [place] [address] Apr, [facility] [address] [id number] [address] [place] [address], [place] [address] Apr, [facility] [address] [id number] [address] [place] [address], [place] [address] Apr, [facility] [address] [id number] [address] [place] [address], [place] [address] Apr, [facility] [address] [id number] [address] [place] [address], [place] [address] Mar, [facility] [address] [id number] [address] [place] [address], [place] [address] Mar, [facility] [address] [id number] [address] [place] [address] Mar, [facility] [address] [id number] [address] [place] [address], [place] [id number] Mar, [facility] [address] [id number] [address] [place] [address], [place] [address] Mar, [facility] [address] [id number] [address] [place] [address], [place] [address] Mar, [facility] [address] [id number] [address] [place] [address] Mar, [facility] [address] [id number] [address] [place] [address] Mar, [facility] [address] [id number] [address] [place] [address] Nov, [facility] [address] [id number] [address] [place] [address] Nov, [facility] [address] [facility] [id number] [address] [address] 12 Nov, 2013 [facility] [address] [facility] [id number] [address] [place] [address] Nov, [facility] [address] [facility] [id number] [address] [place] [address] 10 Nov, 2013 IMMUNIZATIONS No Known Immunizations SOCIAL HISTORY Never Assessed REASON FOR VISIT Lab (walk-in) PLAN OF CARE VITAL SIGNS MEDICATIONS Unknown Medications RESULTS No Results PROCEDURES Procedure Date Ordered Result Body Site COMPREHEN METABOLIC PANEL Mar 26, 2017 ASSAY OF BLOOD/URIC ACID Mar 26, 2017 VENIPUNCT, ROUTINE* Mar 26, 2017 LIPID PANEL Mar 26, 2017 INSTRUCTIONS MEDICATIONS ADMINISTERED No Known Medications MEDICAL (GENERAL) HISTORY Type Description Date Medical History hypertension 2006 Medical History hyperlipidemia 2006 Medical History obesity Medical History chronic pain 2007 Medical History [id number] Medical History depression Medical History Bipolar disorder, unspecified Medical History Bipolar disorder, unspecified Surgical History Birthmark removed from right side of nos e Hospitalization History depression 03/2014 Hospitalization History depression 04/2014
--- OUTSIDE RECORDS SUMMARY | 2019-03-01 00:27 | XMS REPORT ---
Author Author Mansoor SALAS Organization [facility] [place] Address [address] [place] [address] Care Team Providers Care Clam Shucker Name Role Phone JORDAN SALAS Unavailable PROBLEMS Type Condition ICD9-CM Code [id number] Code Onset Dates Condition S tatus SNOMED Code Problem Obsessive-compulsive disorders F42.9 Active 017343494 Problem Acute midline low back pain with left-sided sciatica M54.42 Active 762741405 Problem Mixed hyperlipidemia E78.2 Active 258760247 Problem Benign hypertension I10 Active 66703001 Problem Chronic depression F32.9 Active 1 52277354 Problem Abnormal results of thyroid function studies R94.6 Active 718488341 Problem Gout M10.9 Active 29191702 ALLERGIES Substance Reaction Event Type Date Status Azithromycin nausea Drug Allergy Apr, Active SOCIAL HISTORY Never Assessed PLAN OF CARE Activity Details Follow Up 3-4 weeks and fasting lab in the meantime Reason:[facility] VITAL SIGNS Height 78 in 2016-05-22 Weight 410 lbs 2016-05-22 Temperature 98.4 degrees Fahrenheit 2016-05-22 Heart Rate 76 bpm 2016-05-22 Respiratory Rate 20 2016-05-22 BMI 47.38 kg/m2 2016-05-22 Blood pressure systolic 100 mmHg 2016-05-22 Blood pressure diastolic 70 mmHg 2016-05-22 MEDICATIONS Medication Instructions Dosage Frequency Start Date End Date Duration S tatus Lisinopril 20 mg Orally Once a day 1 tablet 24h Apr, 30 days Active Atorvastatin Calcium 80 Orally Once a day 1/2 tablet 24h 30 Active Allopurinol 300MG Orally Once a day 1 tablet 24h 30 Active Fluoxetine HCl 20 MG Orally Once a day 1 tablet in the morning 24h Apr, 30 day(s) Active RESULTS No Results PROCEDURES No Known procedures IMMUNIZATIONS No Known Immunizations MEDICAL (GENERAL) HISTORY Type Description Date Medical History hypertension 2006 Medical History hyperlipidemia 2006 Medical History obesity Medical History chronic pain 2007 Medical History [id number] Medical History depression Medical History Bipolar disorder, unspecified Medical History Bipolar disorder, unspecified Surgical History Birthmark removed from right side of nos e Hospitalization History depression 03/2014 Hospitalization History depression 04/2014
--- OUTSIDE RECORDS SUMMARY | 2019-03-01 00:27 | XMS REPORT ---
Author Author Mansoor SALAS Organization [facility] Address [address] [place] [address] Care Team Providers Care Registered Radiographer Name Role Phone JORDAN SALAS Unavailable PROBLEMS Type Condition ICD9-CM Code HMP40-WA Code Onset Dates Condition S tatus SNOMED Code Problem Obsessive-compulsive disorders F42.9 Active 255932371 Problem Acute midline low back pain with left-sided sciatica M54.42 Active 998443378 Problem Mixed hyperlipidemia E78.2 Active 631372943 Problem Benign hypertension I10 Active 80502920 Problem Chronic depression F32.9 Active 1 85872821 Problem Abnormal results of thyroid function studies R94.6 Active 835490118 Problem Gout M10.9 Active 45242446 ALLERGIES Substance Reaction Event Type Date Status Azithromycin nausea Drug Allergy June, Active SOCIAL HISTORY Never Assessed PLAN OF CARE Activity Details Follow Up 2 Months Reason: VITAL SIGNS Height 78 in 2016-07-08 Weight 413 lbs 2016-07-08 Temperature 98.4 degrees Fahrenheit 2016-07-08 Heart Rate 90 bpm 2016-07-08 Respiratory Rate 20 2016-07-08 BMI 47.72 kg/m2 2016-07-08 Blood pressure systolic 132 mmHg 2016-07-08 Blood pressure diastolic 80 mmHg 2016-07-08 MEDICATIONS Medication Instructions Dosage Frequency Start Date End Date Duration S tatus Lisinopril 20 mg take tablet by Oral route 1 time per day 30 Active Atorvastatin Calcium 80 Orally Once a day 1/2 tablet 24h 30 Active Allopurinol 300MG Orally Once a day-appt needed for additional r efills 1 tablet 30 Active Fluoxetine HCl 40 MG Orally Once a day 1 tablet in the morning 24h 30 day(s) Active Allopurinol 300MG Orally Once a day 1 tablet 24h 30 Active Lisinopril 20 mg Orally Once a day 1 tablet 24h 30 d ays Active Fluoxetine HCl 20 MG Orally Once a day 1 tablet in the morning 24h 30 Active RESULTS No Results PROCEDURES No Known procedures IMMUNIZATIONS No Known Immunizations MEDICAL (GENERAL) HISTORY Type Description Date Medical History hypertension 2006 Medical History hyperlipidemia 2006 Medical History obesity Medical History chronic pain 2007 Medical History [id number] Medical History depression Medical History Bipolar disorder, unspecified Medical History Bipolar disorder, unspecified Surgical History Birthmark removed from right side of nos e Hospitalization History depression 03/2014 Hospitalization History depression 04/2014
--- OUTSIDE RECORDS SUMMARY | 2019-03-01 00:27 | XMS REPORT ---
Author Author Mansoor SALAS Organization [facility] Address [address] [place] [address] Care Team Providers Care Manager Action Name Role Phone JORDAN SALAS Unavailable PROBLEMS Type Condition ICD9-CM Code VBY66-[place] Code Onset Dates Condition S tatus SNOMED Code Problem Obsessive-compulsive disorders F42.9 Active 552590740 Problem Chronic depression F32.9 Active 1 59757437 Problem Acute left-sided low back pain with left-sided sciatica M54.42 Active 310113387 Problem Acute midline low back pain with left-sided sciatica M54.42 Active 660058974 Problem Gout M10.9 Active 18891913 Problem Benign hypertension I10 Active 02231079 Problem Mixed hyperlipidemia E78.2 Active 923157657 Problem Abnormal results of thyroid function studies R94.6 Active 571692970 ALLERGIES Substance Reaction Event Type Date Status Azithromycin nausea Drug Allergy Oct, Active ENCOUNTERS Encounter Location Date Diagnosis [facility] [address] [address] May, [facility] [address] [address] Apr, Chronic depression F32.9 ; B enign hypertension I10 ; Mixed hyperlipidemia E78.2 ; Gout M10.9 and BMI 50.0-59.9, adult Z68.43 [facility] [address] [place] [id number] [address] [place] [address] Mar, Mixed hyperlipidemia E78.2 ; Benign hypertension I10 and Gout M10.9 [facility] [address] [place] [id number] [address] [place] [address] Mar, Mixed hyperlipidemia E78.2 ; Gout M10.9 and Benign hypertension I10 [facility] [id number] [place] [address] Jan, Acute left-sided low back pa in with left-sided sciatica M54.42 and BMI 50.0-59.9, adult Z68.43 [facility] [address] [place] [id number] [place] [address] 22 Oct, 2016 Acute midline low back pain with left-sided sciatica M54.42 [facility] [address] [address] 20 Oct, 2016 [facility] [address] [address] 13 Oct, 2016 Chronic depression F32.9 ; B enign hypertension I10 ; Mixed hyperlipidemia E78.2 and Gout M10.9 [place] [address] [address] Sep, Chronic depression F32.9 ; B enign hypertension I10 ; Mixed hyperlipidemia E78.2 and Gout M10.9 [place] [address] [address] June, Chronic depression F32.9 ; G out M10.9 ; Benign hypertension I10 ; Obsessive-compulsive disorders F42.9 and Mixed hyperlipidemia E78.2 [place] [address] [address] May, Gout M10.9 ; Mixed hyperlipi demia E78.2 and Benign hypertension I10 [place] [address] [address] Apr, Chronic depression F32.9 ; G out M10.9 ; Benign hypertension I10 ; Obsessive-compulsive disorders F42.9 ; Abnormal results of thyroid function studies R94.6 and Mixed hyperlipidemia E78.2 [place] [address] [address] Apr, [place] [address] [address] Apr, [facility] [address] [id number] [address] [place] [address] Jan, [facility] [address] [id number] [address] [place] [address] Dec, [facility] [address] [id number] [address] [place] [address] Oct, [facility] [address] [id number] [address] [place] [address] Sep, Anxiety state, unspecified 3 00.00 and Major depressive disorder, single episode, mild 296.21 [facility] [address] [id number] [address] [place] [address] Sep, [facility] [address] [id number] [address] [place] [address] Aug, [facility] [address] [id number] [address] [place] [address] Jul, [facility] [address] [id number] [address] [place] [address] June, Anxiety state, unspecified 3 00.00 and Depressive disorder, not elsewhere classified 311 [facility] [address] [id number] [address] [place] [address] June, [facility] [address] [id number] [address] [place] [address] June, Abnormal thyroid blood test 794.5 [facility] [address] [id number] [address] [place] [address] May, [facility] [address] [id number] [address] [place] [address] May, [facility] [address] [id number] [address] [place] [address] Apr, [facility] [address] [id number] [address] [place] [address] Apr, [facility] [address] [id number] [address] [place] [address], [place] [id number] Apr, [facility] [address] [id number] [address] [place] [address], [place] [id number] Apr, [facility] [address] [id number] [address] [place] [address], [place] [id number] Apr, [facility] [address] [id number] [address] [place] [address], [place] [id number] Apr, [facility] [address] [id number] [address] [place] [address], [place] [id number] Apr, [facility] [address] [id number] [address] [place] [address], [place] [id number] Apr, [facility] [address] [id number] [address] [place] [address], [place] [id number] Apr, [facility] [address] [id number] [address] [place] [address], [place] [id number] Apr, [facility] [address] [id number] [address] [place] [address], [place] [id number] Apr, [facility] [address] [id number] [address] [place] [address], [place] [id number] Apr, [facility] [address] [id number] [address] [place] [address], [place] [id number] Apr, 2014 [facility] [address] [id number] [address] [place] [address], [place] [id number] Apr, [facility] [address] [id number] [address] [place] [address], [place] [id number] Apr, 2014 [facility] [address] [id number] [address] [place] [address], [place] [id number] Apr, [facility] [address] [id number] [address] [place] [address], [place] [id number] Mar, [facility] [address] [id number] [address] [place] [address] Mar, [facility] [address] [id number] [address] [place] [address] Mar, [facility] [address] [id number] [address] [place] [address] Mar, [facility] [address] [id number] [address] [place] [address] Mar, [facility] [address] [id number] [address] [place] [address] Mar, [facility] [address] [id number] [address] [place] [phone] Mar, [facility] [address] [id number] [address] [place] [address] Mar, [facility] [address] [id number] [address] [place] [address] Nov, [facility] [address] [id number] [address] [place] [address] Nov, [facility] [address] [id number] [address] [place] [address] Nov, [facility] [address] [id number] [address] [place] [address] Nov, [facility] [address] [id number] [address] [place] [address] Nov, IMMUNIZATIONS No Known Immunizations SOCIAL HISTORY Never Assessed REASON FOR VISIT Gout f/u-AHarrymanRN, States just a general f/u PLAN OF CARE Activity Details Follow Up 6 Months, prn or as indicate d Reason:mood VITAL SIGNS Height 78 in 2016-11-12 Weight 430.7 lbs 2016-11-12 Temperature 99.4 degrees Fahrenheit 2016-11-12 Heart Rate 92 bpm 2016-11-12 Respiratory Rate 22 2016-11-12 BMI 49.77 kg/m2 2016-11-12 Blood pressure systolic 144 mmHg 2016-11-12 Blood pressure diastolic 88 mmHg 2016-11-12 MEDICATIONS Medication Instructions Dosage Frequency Start Date End Date Duration S tatus Allopurinol 300MG Orally Once a day-appt needed for additional r efills 1 tablet 30 Active Atorvastatin Calcium 80 mg Orally Once a day 1/2 tablet 24h 30 Active Lisinopril 20 mg Orally Once a day take tablet by Oral route 1 time per day 24h 30 Active Paxil 10 mg Orally Once a day 1 tablet in the morning 24h 30 day(s) Active RESULTS No Results PROCEDURES No Known procedures INSTRUCTIONS MEDICATIONS ADMINISTERED No Known Medications MEDICAL (GENERAL) HISTORY Type Description Date Medical History hypertension 2006 Medical History hyperlipidemia 2006 Medical History obesity Medical History chronic pain 2007 Medical History [id number] Medical History depression Medical History Bipolar disorder, unspecified Medical History Bipolar disorder, unspecified Surgical History Birthmark removed from right side of nos e Hospitalization History depression 03/2014 Hospitalization History depression 04/2014
--- OUTSIDE RECORDS SUMMARY | 2019-03-01 00:27 | XMS REPORT ---
Author Author Mansoor LAWTON [facility] eClinicalWorks Address Unknown Phone Unavailable Care Team Providers Care Pan Puller Name Role Phone PATRICIA LAWTON CP Unavailable Allergies, Adverse Reactions, Alerts Substance Reaction Event Type Azithromycin nausea Drug Allergy Problems Problem Type Condition ICD-9 Code Onset [...] mild 296.21 Active Problem Lumbago 724.2 Active Assessment Anxiety state, unspecified 300.00 A ctive Problem Major depressive disorder, r ecurrent episode, severe, without mention of psychotic behavior 296.33 Active Problem Bipolar disorder, unspecified 296.80 Active Assessment Major depressive disorder, single episode, mild 296.21 Active Problem Major depressive disorder, recurrent episode, unspecif ied 296.30 Active Medications Medication Code System Code Instructions Start Date End Date Status Dosage Zoloft [facility] [address]-60 100 MG Orally Once a day July 26, 2014 1.5 tablets Risperidone [facility] [address]-29 1 MG Orally Once a day May 22, 2014 1 tablet Allopurinol [facility] 10268014306 300MG Orally Once a day 1 tablet cyclobenzaprine [facility] [address]-78 10 mg Dec 09, 2013 1 tablet by Oral route every 8 hours PRN repository med Lisinopril [facility] [address]-33 20 mg May 23, 2014 take tablet by Oral route 1 time per day repository med atorvastatin ND 0 80 mg Mar 07, 2014 take 0 .5 tablet by Oral route at bedtime 1 time per day Procedures Procedure Coding System Code Date Office Visit, Est Pt., Level 3 CPT-4 99868 Oct 27, 2014 Vital Signs Date/Time: Oct 27, 2014 Temperature 98.0 F Weight 286.6 lbs Height 78 in BMI 33.12 Index Blood Pressure Diastolic 72 mmHg Blood Pressure Systolic 117 mmHg Cardiac Monitoring Heart Rate 70 bpm Results No Known Results Summary Purpose eClinicalWorks Submission
--- OUTSIDE RECORDS SUMMARY | 2019-03-01 00:27 | XMS REPORT | Continuity of Care Document ---
Author Organization Unknown Address Unknown Phone Unavailable Allergies Active Description Code Type Severity Reaction Onset Reported/Identified Relationship to Patient Clinical Status Yes azithromycin Drug Allergy N/A N/A 12/09/2013 Medications There is no data. Problems Date Dx Coded Attending Type Code Diagnosis Diagnosed By 12/09/2013 MADL S3B MULTI SENSOR OPERATOR, JORDAN L 272 .4 OTHER AND UNSPECIFIED HYPERLIPIDEMIA 12/09/2013 MADL S3B MULTI SENSOR OPERATOR, JORDAN L 274 .9 GOUT 12/09/2013 MADL S3B MULTI SENSOR OPERATOR, JORDAN L 401 .1 HYPERTENSION, BENIGN ESSENTIAL 12/09/2013 MADL S3B MULTI SENSOR OPERATOR, JORDAN L 724 .2 BACK PAIN, LOWER 12/09/2013 MADL S3B MULTI SENSOR OPERATOR, JORDAN L V04 .81 FLU SHOT 12/09/2013 MADL S3B MULTI SENSOR OPERATOR, JORDAN L 272 .4 OTHER AND UNSPECIFIED HYPERLIPIDEMIA 12/09/2013 MADL S3B MULTI SENSOR OPERATOR, JORDAN L 274 .9 GOUT 12/09/2013 MADL S3B MULTI SENSOR OPERATOR, JORDAN L 401 .1 HYPERTENSION, BENIGN ESSENTIAL 12/09/2013 MADL S3B MULTI SENSOR OPERATOR, JORDAN L 724 .2 BACK PAIN, LOWER 12/09/2013 MADL S3B MULTI SENSOR OPERATOR, JORDAN L V04 .81 FLU SHOT 12/09/2013 MADL S3B MULTI SENSOR OPERATOR, JORDAN L 272 .4 OTHER AND UNSPECIFIED HYPERLIPIDEMIA 12/09/2013 MADL S3B MULTI SENSOR OPERATOR, JORDAN L 274 .9 GOUT 12/09/2013 MADL S3B MULTI SENSOR OPERATOR, JORDAN L 401 .1 HYPERTENSION, BENIGN ESSENTIAL 12/09/2013 MADL S3B MULTI SENSOR OPERATOR, JORDAN L 724 .2 BACK PAIN, LOWER 12/09/2013 MADL S3B MULTI SENSOR OPERATOR, JORDAN L V04 .81 FLU SHOT 12/09/2013 MICHELLE LCMF, CHAMP Malone 272.4 OTHER AND UNSPECIFIED HYPERLIPIDEMIA 12/09/2013 MICHELLE LCMF, CHAMP W 274.9 GOUT 12/09/2013 MICHELLE LCMF, CHAMP W 401.1 HYPERTENSION, BENIGN ESSENTIAL 12/09/2013 MICHELLE MF, CHAMP W 724.2 BACK PAIN, LOWER 12/09/2013 MICHELLE NORAHMF, CHAMP W V04.81 FLU SHOT 12/09/2013 MADL S3B MULTI SENSOR OPERATOR, JORDAN L 272 .4 OTHER AND UNSPECIFIED HYPERLIPIDEMIA 12/09/2013 MADL S3B MULTI SENSOR OPERATOR, JORDAN L 274 .9 GOUT 12/09/2013 MADL S3B MULTI SENSOR OPERATOR, JORDAN L 401 .1 HYPERTENSION, BENIGN ESSENTIAL 12/09/2013 MADL S3B MULTI SENSOR OPERATOR, JORDAN L 724 .2 BACK PAIN, LOWER 12/09/2013 MADL S3B MULTI SENSOR OPERATOR, JORDAN L V04 .81 FLU SHOT 12/09/2013 PATRICIA HIDALGO M 272.4 OTHER AND UNSPECIFIED HYPERLIPIDEMIA 12/09/2013 JERED CORRECTIONS UNIT SUPERVISOR, PATRICIA M 274.9 GOUT 12/09/2013 PATRICIA HIDALGO M 401.1 HYPERTENSION, BENIGN ESSENTIAL 12/09/2013 PATRICIA HIDALGO M 724.2 BACK PAIN, LOWER 12/09/2013 PATRICIA HIDALGO M V04.81 FLU SHOT 03/24/2014 MADL S3B MULTI SENSOR OPERATOR, JORDAN L 296 .30 MO DEPRESSIVE RECURRENT UNSPECIFIED 03/24/2014 MADL S3B MULTI SENSOR OPERATOR, JORDAN L 300 .3 AN OBCESS COMP DIS 03/24/2014 MICHELLE ALMAZANF, CHAMP Malone 296.30 MO DEPRESSIVE RECURRENT UNSPECIFIED 03/24/2014 MICHELLE ALMAZANF, CHAMP Malone 300.3 AN OBCESS COMP DIS 03/24/2014 MADL S3B MULTI SENSOR OPERATOR, JORDAN L 296 .30 MO DEPRESSIVE RECURRENT UNSPECIFIED 03/24/2014 MADL S3B MULTI SENSOR OPERATOR, JORDAN L 300 .3 AN OBCESS COMP DIS 03/24/2014 JERED CORRECTIONS UNIT SUPERVISORPATRICIA M 296.30 MO DEPRESSIVE RECURRENT UNSPECIFIED 03/24/2014 PATRICIA HIDALGO M 300.3 AN OBCESS COMP DIS 04/04/2014 MADL S3B MULTI SENSOR OPERATOR, JORDAN L 300 .00 ANXIETY UNSPEC 04/04/2014 MADL S3B MULTI SENSOR OPERATOR, JORDAN L 311 DEPRESSIVE DISORDER NOT ELSEWHERE CLASSIFIED 04/04/2014 MICHELLE LCF, CHAMP Malone 300.00 ANXIETY UNSPEC 04/04/2014 MICHELLE LCF, CHAMP Malone 311 DEPRESSIVE DISORDER NOT ELSEWHERE CLASSIFIED 04/04/2014 JOSUE S3B MULTI SENSOR OPERATORNOEL QuigleyA L 300 .00 ANXIETY UNSPEC 04/04/2014 NANDOL NOEL JONESA L 311 DEPRESSIVE DISORDER NOT ELSEWHERE CLASSIFIED 04/04/2014 PATRICIA HIDALGO 300.00 ANXIETY UNSPEC 04/04/2014 PATRICIA HIDALGO 3 11 DEPRESSIVE DISORDER NOT ELSEWHERE CLASSIFIED 04/05/2014 MICHELLE LCMF, CHAMP Malone 296.21 MO DEPRESS SINGLE MILD 04/05/2014 MADL KAREN, JORDAN L 296 .21 MO DEPRESS SINGLE MILD 04/05/2014 PATRICIA HIDALGO 296.21 MO DEPRESS SINGLE MILD 04/25/2014 MADL NOEL JONESA L 296 .33 MO DEPRESSIVE RECURRENT SEVERE W/O PSYCHOTIC BEHAVIOR 04/25/2014 PATRICIA HIDALGO 296.33 MO DEPRESSIVE RECURRENT SEVERE W/O PSYCHOTIC BEHAVIOR 05/22/2014 NOEL SALAS APRNA L 296 .80 MO BIPOLAR NOS 05/22/2014 PATRICIA HIDALGO 296.80 MO BIPOLAR NOS Procedures Code [place] [address] ROUT INE VENIPUNCTURE 12/09/2013 03893 URIC ACID 12/09/2013 82905 CBC 12/09/2013 47811 CMP 12/09/2013 [id number] GF R CALC (RESULT ONLY) 12/09/2013 94990 TSH 12/09/2013 80258 CULT URE WOUND (AEROBIC) 12/11/2013 37373 PSYT X PT&/FAMILY 30 MINUTES 04/05/2014 12753 PSYC H DIAG EVAL W/MED SRVCS 05/23/2014 Results Test Result Range URIC ACID, SERUM - 03/26/17 09:10 URIC ACID 5.5 mg/dL 4.0-8.0 TISSUE, SPECIMEN A - 10/14/17 12:38 A SOURCE NRG A GROSS DESCRIPTION NRG A DIAGNOSIS NRG A COMMENT NRG CMP - 12/16/18 08:44 GLUCOSE 151 mg/dL 65-99 UREA NITROGEN (BUN) 9 mg/dL 7-25 CREATININE 0.87 mg/dL 0.60-1.35 eGFR NON-AFR. MOZAMBICAN 110 mL/min/1.73m2 > OR = 60 eGFR 128 mL/min/1.73m2 > OR = 60 BUN/CREATININE RATIO NOT APPLICABLE (calc) 6-22 SODIUM 138 mmol/L 135-146 POTASSIUM 3.8 mmol/L 3.5-5.3 CHLORIDE 99 mmol/L 98-110 CARBON DIOXIDE 32 mmol/L 20-32 CALCIUM 9.0 mg/dL 8.6-10.3 PROTEIN, TOTAL 7.1 g/dL 6.1-8.1 ALBUMIN 3.9 g/dL 3.6-5.1 GLOBULIN 3.2 g/dL (calc) 1.9-3.7 ALBUMIN/GLOBULIN RATIO 1.2 (calc) 1.0-2. 5 BILIRUBIN, TOTAL 0.5 mg/dL 0.2-1.2 ALKALINE PHOSPHATASE 86 U/L 40-115 AST 22 U/L 10-40 ALT 33 U/L 9-46 Encounters ACCT No. Visit Date/Time Discharge Status Pt. Type Provider Facility Loc./Unit Complaint [id number] 05/23/2014 09:10:00 05/23/2014 23:59: 59 CLS Outpatient NITIN SALAS APRNNYViolet Wood [id number] 05/22/2014 09:42:00 05/22/2014 23:59: 59 CLS Outpatient JERED LOPEZ PATRICIA M [id number] 04/05/2014 07:50:00 04/05/2014 23:59: 59 CLS Outpatient MICHELLE CHAMP ASTORGA [id number] 04/04/2014 15:35:00 04/04/2014 23:59: 59 CLS Outpatient JORDAN SALAS APRN L [id number] 03/07/2014 10:00:00 03/07/2014 23:59: 59 CLS Outpatient NOEL SALAS APRNA L [id number] 12/09/2013 10:57:00 12/09/2013 23:59: 59 CLS Outpatient NOEL SALAS APRNA L [id number] 01/30/2019 12:30:00 01/30/2019 23:59:5 9 CLS Outpatient PANDA CARLOS [facility] [id number] 12/16/2018 08:00:00 Document Registration [id number] 10/14/2017 08:00:00 Document Registration [id number] 03/26/2017 09:00:00 Document Registration
--- OUTSIDE RECORDS SUMMARY | 2019-03-01 00:27 | XMS REPORT ---
Author Author Mansoor SALAS Organization eClinicalWorks Address Unknown Phone Unavailable Care Team Providers Care Rn Behavioral Health Name Role Phone JORDAN SALAS CP Unavailable Allergies No Known Allergies Problems Problem Type Condition Code Onset Dates Condition Statu s Problem [...] recurrent episode, unspecif ied 296.30 Active Medications No Known Medications Results No Known Results Summary Purpose eClinicalWorks Submission
--- OUTSIDE RECORDS SUMMARY | 2019-03-01 00:27 | XMS REPORT ---
Author Author Mansoor SALAS Organization eClinicalWorks Address Unknown Phone Unavailable Care Team Providers Care Patent Examiner Name Role Phone JORDAN SALAS CP Unavailable [...] Instructions Start Date End Date Status Dosage Allopurinol [facility] [id number] 300MG Orally Onc e a day-appt needed for additional refills 1 tablet Results No Known Results Summary Purpose eClinicalWorks Submission
--- OUTSIDE RECORDS SUMMARY | 2019-03-01 00:27 | XMS REPORT ---
Author Author Mansoor MATTEHWS [facility] Address [address] [place] [address] Care Team Providers Care Stained Glass Glazier Name Role Phone CASSIEMAURICIOPATRICIA Unavailable PROBLEMS Type Condition ICD9-CM Code [id number] Code Onset Dates Condition S tatus SNOMED Code Problem Obsessive-compulsive disorders F42.9 Active 341838197 Problem Chronic depression F32.9 Active 1 24882937 Problem Acute left-sided low back pain with left-sided sciatica M54.42 Active 689072797 Problem Acute midline low back pain with left-sided sciatica M54.42 Active 486418591 Problem Gout M10.9 Active 11911257 Problem Benign hypertension I10 Active 33882646 Problem Mixed hyperlipidemia E78.2 Active 165665144 Problem Abnormal results of thyroid function studies R94.6 Active 005697775 ALLERGIES Substance Reaction Event Type Date Status Azithromycin nausea Drug Allergy Oct, Active ENCOUNTERS Encounter Location Date Diagnosis [facility] [id number] [place] [phone] May, [facility] [id number] [place] [phone] Apr, Chronic depression F32.9 ; B enign hypertension I10 ; Mixed hyperlipidemia E78.2 ; Gout M10.9 and BMI 50.0-59.9, adult Z68.43 [facility] [id number] [place] [phone] Mar, Mixed hyperlipidemia E78.2 ; Benign hypertension I10 and Gout M10.9 [facility] [id number] [place] [phone] Mar, Mixed hyperlipidemia E78.2 ; Gout M10.9 and Benign hypertension I10 [facility] [address] [address] Jan, Acute left-sided low back pa in with left-sided sciatica M54.42 and BMI 50.0-59.9, adult Z68.43 [facility] [address] [address] 22 Oct, 2016 Acute midline low back pain with left-sided sciatica M54.42 [facility] [address] [address] 20 Oct, 2016 [place] [address] [address] 13 Oct, 2016 Chronic depression F32.9 ; B enign hypertension I10 ; Mixed hyperlipidemia E78.2 and Gout M10.9 [place] [address] [address] Sep, Chronic depression F32.9 ; B enign hypertension I10 ; Mixed hyperlipidemia E78.2 and Gout M10.9 [place] [address] [address] June, Chronic depression F32.9 ; G out M10.9 ; Benign hypertension I10 ; Obsessive-compulsive disorders F42.9 and Mixed hyperlipidemia E78.2 [place] [address] [address] May, Gout M10.9 ; Mixed hyperlipi demia E78.2 and Benign hypertension I10 [place] [address] [address] Apr, Chronic depression F32.9 ; G out M10.9 ; Benign hypertension I10 ; Obsessive-compulsive disorders F42.9 ; Abnormal results of thyroid function studies R94.6 and Mixed hyperlipidemia E78.2 [place] [address] [address] Apr, [place] [address] [address] Apr, [facility] [address] [id number] [address] [place] [phone] Jan, [facility] [address] [id number] [address] [place] [phone] Dec, [facility] [address] [id number] [address] [place] [phone] Oct, [facility] [address] [id number] [address] [place] [address] Sep, Anxiety state, unspecified 3 00.00 and Major depressive disorder, single episode, mild 296.21 [facility] [address] [id number] [address] [place] [phone] Sep, [facility] [address] [id number] [address] [place] [phone] Aug, [facility] [address] [id number] [address] [place] [address] Jul, [facility] [address] [id number] [address] [place] [phone] June, Anxiety state, unspecified 3 00.00 and Depressive disorder, not elsewhere classified 311 [facility] [address] [id number] [address] [place] [address] June, [facility] [address] [id number] [address] [place] [address] June, Abnormal thyroid blood test 794.5 [facility] [address] [id number] [address] [place] [phone] May, [facility] [address] [id number] [address] [place] [phone] May, [facility] [address] [id number] [address] [place] [phone] Apr, [facility] [address] [id number] [address] [place] [address] Apr, [facility] [address] [id number] [address] [place] [address], [place] [address] Apr, [facility] [address] [id number] [address] [place] [address], [place] [address] Apr, [facility] [address] [id number] [address] [place] [address], [place] [address] Apr, [facility] [address] [id number] [address] [place] [address], [place] [address] Apr, [facility] [address] [id number] [address] [place] [address], [place] [address] Apr, [facility] [address] [id number] [address] [place] [address], [place] [address] Apr, [facility] [address] [id number] [address] [place] [address], [place] [address] Apr, [facility] [address] [id number] [address] [place] [address], [place] [address] Apr, [facility] [address] [id number] [address] [place] [address], [place] [address] Apr, [facility] [address] [id number] [address] [place] [address], [place] [address] Apr, [facility] [address] [id number] [address] [place] [address], [place] [address] Apr, 2014 [facility] [address] [id number] [address] [place] [address], [place] [address] Apr, [facility] [address] [id number] [address] [place] [address], [place] [address] Apr, [facility] [address] [id number] [address] [place] [address], [place] [address] Apr, [facility] [address] [id number] [address] [place] [address], [place] [address] Mar, [facility] [address] [id number] [address] [place] [phone] Mar, [facility] [address] [id number] [address] [place] [phone] Mar, [facility] [address] [id number] [address] [place] [phone] Mar, [facility] [address] [id number] [address] [place] [phone] Mar, [facility] [address] [id number] [address] [place] [phone] Mar, [facility] [address] [id number] [address] [place] [phone] Mar, [facility] [address] [id number] [address] [place] [phone] Mar, [facility] [address] [id number] [address] [place] [phone] Nov, [facility] [address] [id number] [address] [place] [phone] Nov, [facility] [address] [id number] [address] [place] [phone] Nov, [facility] [address] [id number] [address] [place] [phone] Nov, [facility] [address] [id number] [address] [place] [phone] Nov, IMMUNIZATIONS No Known Immunizations SOCIAL HISTORY Never Assessed REASON FOR VISIT left lower back/hip pain that radiates down all the way to his foot. been hurtin g 2 days ago. denies any injury. he works at a [employer] and states that the c hairs are very uncomfortable. [email or web address] PLAN OF CARE Activity Details Follow Up prn Reason: VITAL SIGNS Height 78 in 2016-11-21 Weight 427.4 lbs 2016-11-21 Temperature 98.2 degrees Fahrenheit 2016-11-21 Heart Rate 88 bpm 2016-11-21 Respiratory Rate 2016-11-21 BMI 49.39 kg/m2 2016-11-21 Blood pressure systolic 140 mmHg 2016-11-21 Blood pressure diastolic 84 mmHg 2016-11-21 MEDICATIONS Medication Instructions Dosage Frequency Start Date End Date Duration S tatus PredniSONE 20 MG Orally 3 tablets x 3 days, f ollowed by 2 tablets x 3 days, followed by 1 tablet x 3 days. as directed Oct, Nov, 9 days Active Lisinopril 20 mg Orally Once a day take tablet by Oral route 1 time per day 24h 30 Active Atorvastatin Calcium 80 mg Orally Once a day 1/2 tablet 24h 30 Active Amitriptyline HCl 10 mg Orally Once a day at bedtime 1 tablet Oct, 30 day(s) Active Paxil 10 mg Orally Once a day 1 tablet in the morning 24h 30 day(s) Active Allopurinol 300MG Orally Once a day-appt needed for additional r efills 1 tablet 30 Active Baclofen 20 MG Orally Three times a day 1 tablet with food or milk 8h Oct, Oct, 7 days Active RESULTS No Results PROCEDURES No Known procedures INSTRUCTIONS MEDICATIONS ADMINISTERED No Known Medications MEDICAL (GENERAL) HISTORY Type Description Date Medical History hypertension 2007 Medical History hyperlipidemia 2006 Medical History obesity Medical History chronic pain 2007 Medical History [id number] Medical History depression Medical History Bipolar disorder, unspecified Medical History Bipolar disorder, unspecified Surgical History Birthmark removed from right side of nos e Hospitalization History depression 03/2014 Hospitalization History depression 04/2014
--- OUTSIDE RECORDS SUMMARY | 2019-03-01 00:27 | XMS REPORT ---
Author Author Mansoor SALAS Organization [facility] Address [address] [place] [address] Care Team Providers Care Geodetic Surveyor Technologist Name Role Phone JORDAN SALAS Unavailable PROBLEMS Type Condition ICD9-CM Code ADP56-CZ Code Onset Dates Condition S tatus SNOMED Code Problem Obsessive-compulsive disorders F42.9 Active 926298410 Problem Acute midline low back pain with left-sided sciatica M54.42 Active 342842575 Problem Mixed hyperlipidemia E78.2 Active 485836076 Problem Benign hypertension I10 Active 37904778 Problem Chronic depression F32.9 Active 1 77388229 Problem Abnormal results of thyroid function studies R94.6 Active 384904872 Problem Gout M10.9 Active 74085768 ALLERGIES No Information SOCIAL HISTORY Never Assessed PLAN OF CARE VITAL SIGNS MEDICATIONS Medication Instructions Dosage Frequency Start Date End Date Duration S tatus Lisinopril 20 mg take tablet by Oral route 1 time per day Apr, 30 days Active Allopurinol 300MG Orally Once a day-appt needed for additional r efills 1 tablet 30 Active Atorvastatin Calcium 80 TAKE 1/2 TABLET BY MOUTH EVERY NIGHT AT BEDTIME 30 Active RESULTS No Results PROCEDURES No Known procedures IMMUNIZATIONS No Known Immunizations MEDICAL (GENERAL) HISTORY Type Description Date Medical History hypertension 2007 Medical History hyperlipidemia 2007 Medical History obesity Medical History chronic pain 2007 Medical History [id number] Medical History depression Medical History Bipolar disorder, unspecified Medical History Bipolar disorder, unspecified Surgical History Birthmark removed from right side of nos e Hospitalization History depression 03/2014 Hospitalization History depression 04/2014
--- OUTSIDE RECORDS SUMMARY | 2019-03-01 00:27 | XMS REPORT ---
Author Author Mansoor SALAS Organization [facility] Address [address] [place] [address] Care Team Providers Care Stamping Die Try Out Worker Name Role Phone JORDAN SALAS Unavailable PROBLEMS Type Condition ICD9-CM Code [id number] Code Onset Dates Condition S tatus SNOMED Code Problem Obsessive-compulsive disorders F42.9 Active 395581805 Problem Chronic depression F32.9 Active 1 81212599 Problem Acute left-sided low back pain with left-sided sciatica M54.42 Active 365934805 Problem Acute midline low back pain with left-sided sciatica M54.42 Active 648688174 Problem Gout M10.9 Active 54508763 Problem Benign hypertension I10 Active 71672995 Problem Mixed hyperlipidemia E78.2 Active 318857504 Problem Abnormal results of thyroid function studies R94.6 Active 785868730 ALLERGIES Substance Reaction Event Type Date Status Azithromycin nausea Drug Allergy Sep, Active ENCOUNTERS Encounter Location Date Diagnosis [facility] [address] [address] Apr, Chronic depression F32.9 ; B enign hypertension I10 ; Mixed hyperlipidemia E78.2 ; Gout M10.9 and BMI 50.0-59.9, adult Z68.43 [facility] [address] [place] [id number] [place] [address] Mar, Mixed hyperlipidemia E78.2 ; Benign hypertension I10 and Gout M10.9 [facility] [address] [address] Mar, Mixed hyperlipidemia E78.2 ; Gout M10.9 and Benign hypertension I10 [facility] [address] [place] [id number] [place] [id number] Jan, Acute left-sided low back pa in with left-sided sciatica M54.42 and BMI 50.0-59.9, adult Z68.43 [facility] [address] [address] 22 Oct, 2016 Acute midline low back pain with left-sided sciatica M54.42 [facility] [address] [address] Oct, [facility] [address] [address] 13 Oct, 2016 Chronic depression F32.9 ; B enign hypertension I10 ; Mixed hyperlipidemia E78.2 and Gout M10.9 [place] [address] [address] Sep, Chronic depression F32.9 ; B enign hypertension I10 ; Mixed hyperlipidemia E78.2 and Gout M10.9 [facility] [address] [address] June, Chronic depression F32.9 ; G out M10.9 ; Benign hypertension I10 ; Obsessive-compulsive disorders F42.9 and Mixed hyperlipidemia E78.2 [place] [address] [address] May, Gout M10.9 ; Mixed hyperlipi demia E78.2 and Benign hypertension I10 [place] [address] [address] Apr, Chronic depression F32.9 ; G out M10.9 ; Benign hypertension I10 ; Obsessive-compulsive disorders F42.9 ; Abnormal results of thyroid function studies R94.6 and Mixed hyperlipidemia E78.2 [place] [address] [address] Apr, [facility] [address] [address] Apr, [facility] [address] [address] Jan, [facility] [address] [id number] [address] [place] [phone] Dec, [facility] [address] [id number] [address] [place] [phone] Oct, [facility] [address] [id number] [address] [place] [phone] Sep, Anxiety state, unspecified 3 00.00 and Major depressive disorder, single episode, mild 296.21 [facility] [address] [id number] [address] [place] [phone] Sep, [facility] [address] [id number] [address] [place] [phone] Aug, [facility] [address] [id number] [address] [place] [address] Jul, [facility] [address] [id number] [address] [place] [phone] June, Anxiety state, unspecified 3 00.00 and Depressive disorder, not elsewhere classified 311 [facility] [address] [id number] [address] [place] [phone] June, [facility] [address] [id number] [address] [place] [phone] June, Abnormal thyroid blood test 794.5 [facility] [address] [id number] [address] [place] [phone] May, [facility] [address] [id number] [address] [place] [phone] May, [facility] [address] [id number] [address] [place] [phone] Apr, [facility] [address] [id number] [address] [place] [phone] Apr, [facility] [address] [id number] [address] [place] [phone] Apr, [facility] [address] [id number] [address] [place] [address], [place] [address] Apr, [facility] [address] [id number] [address] [place] [address], [place] [address] Apr, [facility] [address] [id number] [address] [place] [address], [place] [address] Apr, [facility] [address] [id number] [address] [place] [address], [place] [address] Apr, [facility] [address] [id number] [address] [place] [address], [place] [address] Apr, [facility] [address] [id number] [address] [place] [address], [place] [address] Apr, [facility] [address] [id number] [address] [place] [address], [place] [address] Apr, [facility] [address] [id number] [address] [place] [address], [place] [address] Apr, [facility] [address] [id number] [address] [place] [address], [place] [address] Apr, [facility] [address] [id number] [address] [place] [address], [place] [address] Apr, [facility] [address] [id number] [address] [place] [address], [place] [address] Apr, [facility] [address] [id number] [address] [place] [address], [place] [address] Apr, [facility] [address] [id number] [address] [place] [address], [place] [address] Apr, [facility] [address] [id number] [address] [place] [address], [place] [address] Mar, [facility] [address] [id number] [address] [place] [address], [place] [address] Mar, [facility] [address] [id number] [address] [place] [phone] Mar, [facility] [address] [id number] [address] [place] [phone] Mar, [facility] [address] [id number] [address] [place] [phone] Mar, [facility] [address] [id number] [address] [place] [id number] Mar, [facility] [address] [id number] [address] [place] [phone] Mar, [facility] [address] [id number] [address] [place] [phone] Mar, [facility] [address] [id number] [address] [place] [phone] Nov, [facility] [address] [id number] [address] [place] [phone] Nov, [facility] [address] [id number] [address] [place] [phone] Nov, [facility] [address] [id number] [address] [place] [phone] Nov, [facility] [address] [id number] [address] [place] [phone] Nov, IMMUNIZATIONS No Known Immunizations SOCIAL HISTORY Never Assessed REASON FOR VISIT Gout f/u--Romario, -Pt has noticed with his antidepressant he is sleeping for 12-16 hours a day. PLAN OF CARE Activity Details Follow Up 6-8 weeks Reason: VITAL SIGNS Height 78 in 2016-10-01 Weight 419.2 lbs 2016-10-01 Temperature 98.2 degrees Fahrenheit 2016-10-01 Heart Rate 84 bpm 2016-10-01 Respiratory Rate 20 2016-10-01 BMI 48.44 kg/m2 2016-10-01 Blood pressure systolic 134 mmHg 2016-10-01 Blood pressure diastolic 86 mmHg 2016-10-01 MEDICATIONS Medication Instructions Dosage Frequency Start Date End Date Duration S tatus Allopurinol 300MG Orally Once a day-appt needed for additional r efills 1 tablet 30 Active Atorvastatin Calcium 80 Orally Once a day 1/2 tablet 24h 30 Active Paxil 10 mg Orally Once a day 1 tablet in the morning 24h Sep 30 day(s) Active Lisinopril 20 mg Orally Once a day take tablet by Oral route 1 time per day 24h 30 Active RESULTS No Results PROCEDURES No Known procedures INSTRUCTIONS MEDICATIONS ADMINISTERED No Known Medications MEDICAL (GENERAL) HISTORY Type Description Date Medical History hypertension 2006 Medical History hyperlipidemia 2006 Medical History obesity Medical History chronic pain 2007 Medical History [id number] Medical History depression Medical History Bipolar disorder, unspecified Medical History Bipolar disorder, unspecified Surgical History Birthmark removed from right side of nos e Hospitalization History depression 03/2014 Hospitalization History depression 04/2014
== END 2019-02-03 10:10 | disposition home or self-care (01) ==
LOC: SDC 06:07
PROVIDERS: ATTEND Surgery
DX: C76.0 Malignant neoplasm of head, face and neck (principal); I10 Essential (primary) hypertension; G47.33 Obstructive sleep apnea (adult) (pediatric); E78.5 Hyperlipidemia, unspecified; E66.01 Morbid (severe) obesity due to excess calories; F32.9 Major depressive disorder, single episode, unspecified; Z88.1 Allergy status to other antibiotic agents; Z68.44 Body mass index [BMI] 60.0-69.9, adult; Z79.899 Other long term (current) drug therapy; Z82.49 Family history of ischemic heart disease and other diseases of the circulatory system; Z83.3 Family history of diabetes mellitus
CPT/HCPCS: 87081; 88307; 88341; 88342